=== PATIENT | male | born 1940 | race Caucasian/White ===

== ENCOUNTER 2020-02-23 09:53 | Outpatient (REF) | payer MEDICARE, OTHER, SELFPAY ==
[2020-02-23 10:50] LABS: INTERNATIONAL NORM RATIO 2.2 (0.9-1.1); Prothrombin Time 26.3 SEC (10.8-13.0)
== END 2020-02-23 09:54 | disposition home or self-care (01) ==
LOC: HO.LABR 09:53
PROVIDERS: PCP Internal Medicine; Visit Provider Internal Medicine
DX: I48.91 Unspecified atrial fibrillation (principal)
CPT/HCPCS: 36415; 85610

== ENCOUNTER 2020-05-30 13:18 | Outpatient (REF) | payer MEDICARE, OTHER, SELFPAY ==
[2020-05-30 14:20] LABS: MANUAL DIFF FLAG NO
[2020-05-30 14:23] LABS: Basophils Absolute Auto 0.1 X10*3/uL (0.0-0.2); Basophils Percent Auto 0.5 % (0-2); Eosinophils Absolute Auto 0.1 X10*3/uL (0.0-0.4); Eosinophils Percent Auto 0.5 % (0-4); Hematocrit 38.4 % (42-52); Hemoglobin 12.4 g/dl (14.0-18.0); Imm Gran Abs Auto 0.03 X10*3/uL (0.00-0.03); Imm Gran Pct Auto 0.3 % (0.0-0.4); Lymphocytes Percent Auto 9.9 % (20-40); Mean Corpuscular HGB Conc 32.3 g/dl (31.0-36.0); Mean Corpuscular Hemoglobin 30.8 pg (27.0-33.0); Mean Corpuscular Volume 95.5 fL (80-98); Mean Platelet Volume 9.5 fL (9.4-12.4); Monocytes Percent Auto 9.3 % (2-11); Neutrophils Absolute Auto 8.2 X10*3/uL (2.0-8.3); Neutrophils Percent Auto 79.5 % (45-73); Platelet Count 357 X10*3/uL (160-400); Red Blood Count 4.02 X10*6/uL (4.60-5.80); Red Cell Distribution Width 14.3 % (11.0-16.0); White Blood Count 10.3 X10*3/uL (4.8-10.8)
[2020-05-30 14:47] LABS: Alanine Aminotransferase 15 U/L (0-40); Albumin Level 3.8 g/dL (3.5-5.0); Alkaline Phosphatase 43 U/L (39-117); Anion Gap 10 (12-20); Aspartate Amino Transferase 20 U/L (5-37); Bilirubin Total 0.7 mg/dL (0.0-1.0); Blood Urea Nitrogen 23 mg/dL (9-16); Calcium 8.8 mg/dL (8.4-10.2); Carbon Dioxide 26 mmol/L (22-29); Chloride 105 mmol/L (96-108); Cholesterol 111 mg/dL; Estimated Glomerular Filt Rate 56; Glucose Random 98 mg/dL (60-115); HDL Cholesterol 62 mg/dL; LDL Cholesterol Calculated 38 mg/dl; Potassium 4.2 mmol/L (3.3-5.1); Sodium 137 mmol/L (135-145); Total Protein 6.7 g/dL (6.5-8.0); Triglycerides 58 mg/dL
[2020-05-30 15:07] LABS: Thyroid Stimulating Hormone 0.87 uIU/mL (0.32-4.0)
== END 2020-05-30 13:19 | disposition home or self-care (01) ==
LOC: HO.LAB 13:18
PROVIDERS: Visit Provider Internal Medicine
DX: I10 Essential (primary) hypertension (principal); I48.91 Unspecified atrial fibrillation
CPT/HCPCS: 36415; 80053; 80061; 84443; 85025

== ENCOUNTER → 2020-06-16 10:53 | Outpatient (BNVA) | payer MEDICARE, OTHER, SELFPAY | PROVIDERS: PCP Internal Medicine; Visit Provider Internal Medicine | DX: J44.9 Chronic obstructive pulmonary disease, unspecified (principal); J30.9 Allergic rhinitis, unspecified; F17.200 Nicotine dependence, unspecified, uncomplicated; Z71.6 Tobacco abuse counseling | CPT/HCPCS: 99212 ==

== ENCOUNTER 2020-09-11 12:09 | Inpatient (IN) | payer MEDICARE, OTHER, SELFPAY ==
[2020-09-11] VITALS (11 sets, daily range): BP systolic 86–121; BP diastolic 38–74; PULSE 61–79; RESP 12–20; TEMP 36.4–37.2; O2SAT 93–100
--- NOTE | ~2020-09-11 | FL_ITS ---
EXAMINATION: FL BARIUM SWALLOW CLINICAL INFORMATION: Evaluate for dysphagia. A stricture. COMPARISON: None TECHNIQUE: Barium swallow examination is performed using fluoroscopic evaluation in addition to multiple fluoroscopic spot views. The patient is imaged both upright and prone and using both thick and thin sulfate along with effervescent granules. Fluoroscopy time: 0.4 minutes DAP: 1.078 Gycm2 Images: 21 FINDINGS: Following oral administration of thin and thick barium in upright AP view there is normal propagation of bolus from the oral cavity through the pharynx into the upper esophagus. In the mid esophagus below the aortic arch there is moderate narrowing with irregularity along the right lateral mucosa of the midesophagus likely small stricture or underlying mural lesion. No solid food was attempted at this time. The GE junction is widely patent. FL/FL barium swallow IMPRESSION: Moderate narrowing and irregularity mucosa mid esophagus suspicious for underlying lesion or stricture. Recommend endoscopy for further evaluation.
--- NOTE | ~2020-09-11 | CT_ITS ---
EXAMINATION: CT HEAD WITHOUT CONTRAST CLINICAL INFORMATION: Elevated INR. Injury. COMPARISON: None TECHNIQUE: Contiguous axial imaging was performed from the skull base to vertex without intravenous administration of contrast. This CT examination was performed using dose optimization techniques as appropriate, variously including the following: *Automated exposure control *Adjustment of mA and/or kV according to patient size (this includes techniques or standardized protocols for targeted exams where dose is matched to indication/reason for exam; i.e. extremities or head) *Use of iterative reconstruction technique DLP: 631 mGy-cm FINDINGS: There is no evidence of acute intracranial hemorrhage or territorial infarction. No abnormal mass effect or midline shift is seen. Jha to white matter differentiation is well preserved. No extra-axial fluid collections are identified. The lateral ventricles are symmetrical in size and configuration. Enlarged. There is diffuse periventricular hypodensity in both cerebral hemispheres suggestive of chronic small vessel ischemic changes. The osseous structures and soft tissues are normal. The mastoid air cells and visualized portions of the paranasal sinuses are well aerated. CT/CT head/brain wo con IMPRESSION: There is no acute intracranial process seen. 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
--- NOTE | ~2020-09-11 | CT_ITS ---
EXAMINATION: CT CHEST WITH CONTRAST CLINICAL INFORMATION: Esophageal mass COMPARISON: Previous CTA of the chest April 2018 and chest x-ray barium swallow September 2020 TECHNIQUE: Multidetector volumetric CT imaging of the chest was obtained after the administration of 65 mL of Omnipaque 350 intravenous contrast without immediate adverse reactions. Axial MIP volume rendering provided. Sagittal and coronal reformatted images were obtained. This CT examination was performed using dose optimization techniques as appropriate, variously including the following: *Automated exposure control *Adjustment of mA and/or kV according to patient size (this includes techniques or standardized protocols for targeted exams where dose is matched to indication/reason for exam; i.e. extremities or head) *Use of iterative reconstruction technique DLP: 300 mGy-cm FINDINGS: LUNGS: Exam is limited due to artifact from respiratory motion. There is evidence of emphysema. There is bilateral upper lobe subsegmental atelectasis or scarring that is new or increased from April 2018. There is a new irregularly-shaped parenchymal density in the posterior segment of the right upper lobe measuring approximately 3 x 10 mm for example axial image 127 series 5. There is interval increase in density in the now solid 4 x 6 mm right lower lobe nodule axial image 342 series 5. There is new increased interstitial markings seen in the peripheral or subpleural right middle lobe adjacent to the major fissure. There is subsegmental atelectasis at the lung bases. MEDIASTINUM: There is abnormal wall thickening of the mid thoracic esophagus from the aortic arch to the subcarinal region. This area measures 6 cm in length. There is infiltration of the adjacent fat. There are small adjacent mediastinal lymph nodes. Largest lymph note is a 1.3 x 1.1 cm right paratracheal lymph node axial image 24 series 3. There is an esophageal hernia. The heart does not appear enlarged. There is coronary artery calcification. There is no pericardial effusion. The thoracic aorta is normal in caliber. PLEURA: There are small bilateral pleural effusions.. AXILLA: No lymphadenopathy. UPPER ABDOMEN: There are bilateral renal cysts. There is a stone in the upper pole of the right kidney. There is evidence of severe atherosclerotic disease. OSSEOUS STRUCTURES: There are degenerative changes of the spine. There are old bilateral rib fractures, right greater than left. There are degenerative changes at the shoulder joints. CT/CT chest w con IMPRESSION: Limited exam due to respiratory motion. Abnormal wall thickening of the mid thoracic esophagus, infiltration of the adjacent fat and mediastinal lymph nodes. Interval increase in density in the 5 mm right lower lobe nodule and new bilateral upper lobe scarring or subsegmental atelectasis and abnormal parenchymal density in the right upper lobe compared to April 2018 CTA.
--- NOTE | ~2020-09-11 | XR_ITS ---
EXAMINATION: XR CHEST CLINICAL INFORMATION: Chest pain COMPARISON: Chest 05/08/2018 TECHNIQUE: Frontal view of the chest was obtained. FINDINGS: The lungs are hyperinflated but clear of acute process. Heart size and pulmonary vascularity is normal. There are multiple posterior seventh and eighth rib fractures healing fractures. No acute fractures seen. The soft tissues are normal. XR/XR chest 1V IMPRESSION: Emphysema without acute process. Healing posterior seventh and eighth rib fractures.
--- NOTE | ~2020-09-11 | CT_ITS ---
EXAMINATION: CT ABDOMEN AND PELVIS WITHOUT AND WITH CONTRAST CT topogram only was performed. There is a large amount of oral contrast seen in the colon likely from previous barium swallow 09/13/2020. Additional images were not obtained.
--- NOTE | 2020-09-11 12:23 | ECG_ITS ---
Test Reason : CHEST PAIN Blood Pressure : / mmHG Vent. Rate : 063 BPM Atrial Rate : 063 BPM P-R Int : 148 ms QRS Dur : 134 ms QT Int : 474 ms P-R-T Axes : 059 -62 076 degrees QTc Int : 485 ms Normal sinus rhythm Left axis deviation Right bundle branch block Abnormal ECG When compared with ECG of 08-MAY-2018 14:30, Nonspecific T wave abnormality no longer evident in Inferior leads T wave inversion less evident in Anterolateral leads QT has shortened Referred By: Sheri Cornelius Electronically Signed By:Charles Kauffman
[2020-09-11 13:02] LABS: MANUAL DIFF FLAG NO
[2020-09-11 13:03] LABS: Basophils Percent Auto 0.4 % (0-2); Eosinophils Absolute Auto 0.1 X10*3/uL (0.0-0.4); Hematocrit 25.1 % (42-52); Hemoglobin 7.8 g/dl (14.0-18.0); Imm Gran Abs Auto 0.02 X10*3/uL (0.00-0.03); Imm Gran Pct Auto 0.2 % (0.0-0.4); Lymphocytes Absolute Auto 0.9 X10*3/uL (1.2-4.9); Lymphocytes Percent Auto 10.9 % (20-40); Mean Corpuscular HGB Conc 31.1 g/dl (31.0-36.0); Mean Corpuscular Hemoglobin 30.4 pg (27.0-33.0); Mean Corpuscular Volume 97.7 fL (80-98); Mean Platelet Volume 8.4 fL (9.4-12.4); Monocytes Absolute Auto 0.8 X10*3/uL (0.1-1.2); Monocytes Percent Auto 9.3 % (2-11); Neutrophils Absolute Auto 6.4 X10*3/uL (2.0-8.3); Neutrophils Percent Auto 78.2 % (45-73); Platelet Count 494 X10*3/uL (160-400); Red Blood Count 2.57 X10*6/uL (4.60-5.80); Red Cell Distribution Width 17.4 % (11.0-16.0); White Blood Count 8.1 X10*3/uL (4.8-10.8)
[2020-09-11 13:19] LABS: Prothrombin Time 102.5 SEC (10.8-13.0)
[2020-09-11 13:26] LABS: INTERNATIONAL NORM RATIO 8.4 (0.9-1.1); Partial Thromboplastin Time 74.8 SEC (24.1-38.0)
[2020-09-11] MEDS: ondansetron HCL 4 MG/2 ML VIAL IVPUSH (13:29)
[2020-09-11] MEDS: 0.9 % Sodium Chloride 1,000 ML 999 ML IVCONT ×2 (13:29→15:15)
[2020-09-11 13:33] LABS: Troponin-I High Sensitivity 7.1 ng/L (<3.5-35.0)
--- NOTE | 2020-09-11 13:37 | HE.PHANOTE ---
MED REC COMPLETE. UNABLE TO CONFIRM WHAT DAYS OF THE WEEK HE IS SUPPOSED TO TAKE WARFARIN 4 MG OR WARFARIN 3 MG, RX SAYS 5 TIMES A WEEK FOR 3 MG AND 3 TIMES A WEEK FOR 4 MG. INR IS ELEVATED DOSE MAY NEED TO BE ADJUSTED
[2020-09-11 13:43] LABS: OBS1 NEGATIVE (NEGATIVE)
[2020-09-11 13:44] LABS: OBS Int Ctl Valid YES
--- NOTE | 2020-09-11 13:51 | ED.WEAKNESS ---
HPI - Weakness General Chief complaint: Weakness Stated complaint: diff breathing Time Seen by Provider: 09/11/20 12:23 Source: patient, family and EMS Mode of arrival: EMS History of Present Illness HPI Narrative: 79-year-old male with a past medical history of AFib on Coumadin, CKD, anemia, CAD s/p PCI with stent placement, COPD, GERD, HTN, hypothyroid, HLD, GI bleed, legally blind, deaf, TIA, prostate CA s/p prostatectomy, smoker to the ED complaining of right-sided chest pain, increased weakness, generalized fatigue, and decreased p.o. intake since 2nd Med[employer] COVID-19 vaccine on 07/16/2020. Also reports dry cough x 4-5 days and chronic SOB. Denies fever, chills, LE edema, abdominal pain, nausea, vomiting, diarrhea, melena/black stool, fall/injury or trauma. Denies inability to swallow MD Complaint: lack of energy Related Data Home Medications Medication Instructions Recorded Confirmed albuterol sulfate 90 mcg/actuation 1 inh INHALATION Q4H PRN 06/16/20 09/11/20 aerosol inhaler amlodipine 5 mg tablet 5 mg PO DAILY 06/16/20 09/11/20 cholecalciferol (vitamin D3) 25 25 mcg PO DAILY 06/16/20 09/11/20 mcg (1,000 unit) tablet docusate sodium 100 mg capsule 100 mg PO BEDTIME PRN 06/16/20 09/11/20 dronedarone 400 mg tablet 400 mg PO BID 06/16/20 09/11/20 ferrous sulfate 325 mg (65 mg 325 mg PO DAILY 06/16/20 09/11/20 iron) tablet fluticasone propionate 50 1 spray INTRANASAL DAILY 06/16/20 09/11/20 mcg/actuation nasal spray,suspension folic acid 1 mg tablet 1 mg PO DAILY 06/16/20 09/11/20 levothyroxine 100 mcg tablet 100 mcg PO DAILY@62906/16/20 09/11/20 metoprolol succinate 100 mg 100 mg PO DAILY 06/16/20 09/11/20 tablet,extended release 24 hr omeprazole 20 mg capsule,delayed 20 mg PO DAILY@30 06/16/20 09/11/20 release rosuvastatin 20 mg tablet 20 mg PO BEDTIME 06/16/20 09/11/20 tiotropium bromide 18 mcg capsule 1 cap INHALATION DAILY 06/16/20 09/11/20 with inhalation device warfarin 3 mg tablet 3 mg PO SUTUTHFRSA@1800 06/16/20 09/11/20 warfarin 4 mg tablet 4 mg PO MOWE@1800 06/16/20 09/11/20 albuterol sulfate 2.5 mg INHALATION Q4H PRN 09/11/20 09/11/20 Previous Rx's Medication Instructions Recorded fluticasone furoate 200 1 ea PO DAILY #60 cap 08/13/20 mcg-vilanterol 25 mcg/dose inhalation powder Allergies Allergy/AdvReac Type Severity Reaction Status Date / Time lisinopril [LISINOPRIL] Allergy Severe ANGIOEDEMA Verified 06/16/20 10:54 quinine [Quinine] Allergy Unknown HIVES Verified 06/16/20 10:54 Review of Systems Review of Systems: Constitutional: + Weight loss, No Fever, No Chills, No Night Sweats, + Fatigue, + Malaise ENT/Mouth: No Ear Pain, No sore throat, No Rhinorrhea, No Swallowing Difficulty Eyes: No Eye Pain, No Vision Changes Cardiovascular: + Chest Pain, +Chronic SOB, No Dyspnea on Exertion, No Orthopnea, No Edema Respiratory: + Cough, No Sputum, No Wheezing, + Smoke Exposure, No Dyspnea Gastrointestinal: No Nausea, No Vomiting, No Diarrhea, No Constipation, No Abdominal pain, No Hematochezia, No Melena Genitourinary: No irregular bleeding, No Dysuria, No Hematuria, Musculoskeletal: No joint pain, No Myalgias, No Joint Swelling Skin: No Skin Lesions, No rash Neuro: + Weakness, No Numbness, No Paresthesias, No Loss of Consciousness, + lightheaded, No Headache Yes all other systems are reviewed and are negative [facility] Past Medical History Attestation statement: The following information was validated with the patient. Medical History Allergic rhinitis COPD (chronic obstructive pulmonary disease) Smoker Social History Social History Advance Directives: Yes Advance Directives Information Provided: Yes Advance Directives on File: No Physical Exam Vital Signs: Vital Signs: Last Vital Signs Temp 97.9 F 09/11/20 14:39 Pulse 69 09/11/20 14:39 Resp 12 09/11/20 14:39 BP 109/61 09/11/20 14:39 Pulse Ox 99 09/11/20 14:39 Body Mass Index 8.6 Const: General: cooperative and no acute distress Nutritional Appearance: thin Orientation/consciousness: patient oriented x3 HENMT: Head: Yes normal to inspection Ears: hearing grossly normal bilaterally General nose exam: Normal external nose present Face and sinus: Yes normal facial exam Eyes: General: appearance normal, both eyes and all related structures EOM: EOMs intact bilaterally Neck: Neck: Yes normal visual inspection Resp: Effort & Inspection: normal respiratory effort Auscultation: clear to auscultation bilaterally, no rales, no rhonchi and no wheezes Cardio: Rate: regular rate Heart sounds: S1 normal heart sound present and S2 normal heart sound present GI: Other: dark stool noted on rectal Inspection: Yes normal to inspection Palpation (GI): Soft to palpation, nontender, no guarding and not rigid Skin: Rashes: no rashes Wounds: no wounds Neuro: General: patient oriented x3, moves all extremities and no focal motor deficits Gait exam (Neuro): Normal gait present Extrem: General: Yes normal to inspection Course Course Course Narrative: -No leukocytosis, H&H with dropped from priors to 7.8/25.1 > patient denies bloody/black stools however is legally blind >> on rectal stool dark/black concern for upper GI bleed -INR elevated to 8.4 >> 10mg of IV vitamin K ordered. Patient with TONI with BUN 21 creatinine 1.96 likely from dehydration/anemia -1435--occult stool negative XR chest 1V IMPRESSION: Emphysema without acute process. Healing posterior seventh and eighth rib fractures. >> will obtain head CT to rule out ICH secondary to elevated INR -1537--COVID-19/influenza/RSV negative CT head/brain wo con IMPRESSION: There is no acute intracranial process seen. 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 -1544--patient admitted to hospitalist team for further management MDM - Weakness MDM Narrative Medical decision making narrative: 79-year-old male with a past medical history of AFib on Coumadin, CKD, anemia, CAD s/p PCI with stent placement, COPD, GERD, HTN, hypothyroid, HLD, GI bleed, legally blind, deaf, TIA, prostate CA s/p prostatectomy, smoker to the ED complaining of right-sided chest pain, increased weakness, generalized fatigue, and decreased p.o. intake since 2nd Med[employer] COVID-19 vaccine on 07/16/2020. On exam VSS, underweight, nontoxic appearing, lungs CTA, abdomen soft/nontender. Concern for dehydration vs metabolic abnormalities. Rule out infectious etiology and ACS. Lower concern for PE as patient is anticoagulated. Plan: EKG, labs, UA, CXR, IVF, reassess Medical Records Attestation: I reviewed the patient's medical records. Lab Data Attestation: I reviewed the patient's lab results. Result diagrams: 09/11/20 12:56 09/11/20 12:56 Labs: Lab Results 09/11/20 09/11/20 09/11/20 Range/Units 12:56 12:56 12:56 WBC 8.1 (4.8-10.8) X10*3/uL RBC 2.57 L D (4.60-5.80) X10*6/uL Hgb 7.8 L D (14.0-18.0) g/dl Hct 25.1 L D (42-52) % MCV 97.7 (80-98) fL MCH 30.4 (27.0-33.0) pg MCHC 31.1 (31.0-36.0) g/dl RDW 17.4 H (11.0-16.0) % Plt Count 494 H D (160-400) X10*3/uL MPV 8.4 L (9.4-12.4) fL Immature Gran % (Auto) 0.2 (0.0-0.4) % Neut % (Auto) 78.2 H (45-73) % Lymph % (Auto) 10.9 L (20-40) % Braxton % (Auto) 9.3 (2-11) % Eos % (Auto) 1.0 (0-4) % Baso % (Auto) 0.4 (0-2) % Lymph # (Auto) 0.9 L (1.2-4.9) X10*3/uL Braxton # (Auto) 0.8 (0.1-1.2) X10*3/uL Eos # (Auto) 0.1 (0.0-0.4) X10*3/uL Baso # (Auto) 0.0 (0.0-0.2) X10*3/uL Abs Immat Gran (auto) 0.02 (0.00-0.03) X10*3/uL Absolute Neuts (auto) 6.4 (2.0-8.3) X10*3/uL Absolute Nucleated RBC 0.000 (0.0-0.012) X10*3/uL Nucleated RBC % (auto) 0.0 (0.0-0.2) /100WBC PT (10.8-13.0) SEC INR (0.9-1.1) APTT (24.1-38.0) SEC Sodium 140 (135-145) mmol/L Potassium 3.7 (3.3-5.1) mmol/L Chloride 108 (96-108) mmol/L Carbon Dioxide 24 (22-29) mmol/L Anion Gap 12 (12-20) BUN 21 H (9-16) mg/dL Creatinine 1.96 H (0.5-1.4) mg/dL Estim Creat Clear Calc 10.5 Estimated GFR 33 Random Glucose 96 (60-115) mg/dL Calcium 8.4 (8.4-10.2) mg/dL Magnesium 2.3 (1.6-2.6) mg/dL Total Bilirubin 0.4 (0.0-1.0) mg/dL Direct Bilirubin 0.2 (0.0-0.5) mg/dL AST 32 D (5-37) U/L ALT 37 (0-40) U/L Alkaline Phosphatase 49 (39-117) U/L Troponin I High Sens 7.1 (<3.5-35.0) ng/L Total Protein 5.6 L (6.5-8.0) g/dL Albumin 3.2 L (3.5-5.0) g/dL Lipase 12 (8-78) U/L Stool Occult Blood (NEGATIVE) Coronavirus (PCR) (Negative) Influenza Type A (PCR) (Negative) Influenza Type B (PCR) (Negative) RSV RNA Qual (PCR) (Negative) Blood Type Antibody Screen 09/11/20 09/11/20 09/11/20 Range/Units 12:56 12:56 13:37 WBC (4.8-10.8) X10*3/uL RBC (4.60-5.80) X10*6/uL Hgb (14.0-18.0) g/dl Hct (42-52) % MCV (80-98) fL MCH (27.0-33.0) pg MCHC (31.0-36.0) g/dl RDW (11.0-16.0) % Plt Count (160-400) X10*3/uL MPV (9.4-12.4) fL Immature Gran % (Auto) (0.0-0.4) % Neut % (Auto) (45-73) % Lymph % (Auto) (20-40) % Braxton % (Auto) (2-11) % Eos % (Auto) (0-4) % Baso % (Auto) (0-2) % Lymph # (Auto) (1.2-4.9) X10*3/uL Braxton # (Auto) (0.1-1.2) X10*3/uL Eos # (Auto) (0.0-0.4) X10*3/uL Baso # (Auto) (0.0-0.2) X10*3/uL Abs Immat Gran (auto) (0.00-0.03) X10*3/uL Absolute Neuts (auto) (2.0-8.3) X10*3/uL Absolute Nucleated RBC (0.0-0.012) X10*3/uL Nucleated RBC % (auto) (0.0-0.2) /100WBC PT 102.5 H D (10.8-13.0) SEC INR 8.4 H* D (0.9-1.1) APTT 74.8 H* (24.1-38.0) SEC Sodium (135-145) mmol/L Potassium (3.3-5.1) mmol/L Chloride (96-108) mmol/L Carbon Dioxide (22-29) mmol/L Anion Gap (12-20) BUN (9-16) mg/dL Creatinine (0.5-1.4) mg/dL Estim Creat Clear Calc Estimated GFR Random Glucose (60-115) mg/dL Calcium (8.4-10.2) mg/dL Magnesium (1.6-2.6) mg/dL Total Bilirubin (0.0-1.0) mg/dL Direct Bilirubin (0.0-0.5) mg/dL AST (5-37) U/L ALT (0-40) U/L Alkaline Phosphatase (39-117) U/L Troponin I High Sens (<3.5-35.0) ng/L Total Protein (6.5-8.0) g/dL Albumin (3.5-5.0) g/dL Lipase (8-78) U/L Stool Occult Blood NEGATIVE (NEGATIVE) Coronavirus (PCR) NEGATIVE (Negative) Influenza Type A (PCR) NEGATIVE (Negative) Influenza Type B (PCR) NEGATIVE (Negative) RSV RNA Qual (PCR) NEGATIVE (Negative) Blood Type Antibody Screen 09/11/20 Range/Units 14:36 WBC (4.8-10.8) X10*3/uL RBC (4.60-5.80) X10*6/uL Hgb (14.0-18.0) g/dl Hct (42-52) % MCV (80-98) fL MCH (27.0-33.0) pg MCHC (31.0-36.0) g/dl RDW (11.0-16.0) % Plt Count (160-400) X10*3/uL MPV (9.4-12.4) fL Immature Gran % (Auto) (0.0-0.4) % Neut % (Auto) (45-73) % Lymph % (Auto) (20-40) % Braxton % (Auto) (2-11) % Eos % (Auto) (0-4) % Baso % (Auto) (0-2) % Lymph # (Auto) (1.2-4.9) X10*3/uL Braxton # (Auto) (0.1-1.2) X10*3/uL Eos # (Auto) (0.0-0.4) X10*3/uL Baso # (Auto) (0.0-0.2) X10*3/uL Abs Immat Gran (auto) (0.00-0.03) X10*3/uL Absolute Neuts (auto) (2.0-8.3) X10*3/uL Absolute Nucleated RBC (0.0-0.012) X10*3/uL Nucleated RBC % (auto) (0.0-0.2) /100WBC PT (10.8-13.0) SEC INR (0.9-1.1) APTT (24.1-38.0) SEC Sodium (135-145) mmol/L Potassium (3.3-5.1) mmol/L Chloride (96-108) mmol/L Carbon Dioxide (22-29) mmol/L Anion Gap (12-20) BUN (9-16) mg/dL Creatinine (0.5-1.4) mg/dL Estim Creat Clear Calc Estimated GFR Random Glucose (60-115) mg/dL Calcium (8.4-10.2) mg/dL Magnesium (1.6-2.6) mg/dL Total Bilirubin (0.0-1.0) mg/dL Direct Bilirubin (0.0-0.5) mg/dL AST (5-37) U/L ALT (0-40) U/L Alkaline Phosphatase (39-117) U/L Troponin I High Sens (<3.5-35.0) ng/L Total Protein (6.5-8.0) g/dL Albumin (3.5-5.0) g/dL Lipase (8-78) U/L Stool Occult Blood (NEGATIVE) Coronavirus (PCR) (Negative) Influenza Type A (PCR) (Negative) Influenza Type B (PCR) (Negative) RSV RNA Qual (PCR) (Negative) Blood Type O Positive Antibody Screen NEGATIVE ECG Data Attestation: I personally reviewed and interpreted this ECG as follows: ECG interpretation date: 09/11/20 ECG interpretation time: 12:39 Interpretation: EKG normal sinus rhythm with right bundle-branch block. Rate of 63, nonischemic/no STEMI Discharge Plan Discharge Clinical Impression: Weakness, Anemia, Elevated INR, TONI (acute kidney injury) Patient Disposition: Admitted As Inpatient Prescriptions: No Action fluticasone furoate-vilanterol [Breo Ellipta] 200-25 mcg/dose blister with device 1 ea PO DAILY Qty: 60 RF: 3 albuterol sulfate 2.5 mg /3 mL (0.083 %) Solution For Nebulization 2.5 mg INHALATION Q4H PRN (Reason: Respiratory Distress) RF: 0 Multaq 400 mg tablet 400 mg PO BID RF: 0 Spiriva with HandiHaler 18 mcg capsule, w/inhalation device 1 cap inhalation DAILY RF: 0 rosuvastatin 20 mg tablet 20 mg PO BEDTIME RF: 0 fluticasone propionate 50 mcg/actuation spray,suspension 1 spray intranasal DAILY RF: 0 albuterol sulfate 90 mcg/actuation HFA aerosol inhaler 1 inh inhalation Q4H PRN (Reason: Shortness Of Breath) RF: 0 omeprazole 20 mg capsule,delayed release(DR/EC) 20 mg PO DAILY@0630 RF: 0 levothyroxine 100 mcg tablet 100 mcg PO DAILY@0630 RF: 0 amlodipine 5 mg tablet 5 mg PO DAILY RF: 0 metoprolol succinate 100 mg tablet extended release 24 hr 100 mg PO DAILY RF: 0 warfarin 3 mg tablet 3 mg PO SUTUTHFRSA@1800 RF: 0 warfarin 4 mg tablet 4 mg PO MOWE@1800 RF: 0 folic acid 1 mg tablet 1 mg PO DAILY RF: 0 cholecalciferol (vitamin D3) 25 mcg (1,000 unit) tablet 25 mcg PO DAILY RF: 0 docusate sodium 100 mg capsule 100 mg PO BEDTIME PRN (Reason: Constipation) RF: 0 ferrous sulfate 325 mg (65 mg iron) tablet 325 mg PO DAILY RF: 0
[2020-09-11 13:52] LABS: Alanine Aminotransferase 37 U/L (0-40); Albumin Level 3.2 g/dL (3.5-5.0); Alkaline Phosphatase 49 U/L (39-117); Anion Gap 12 (12-20); Aspartate Amino Transferase 32 U/L (5-37); Bilirubin Direct 0.2 mg/dL (0.0-0.5); Bilirubin Total 0.4 mg/dL (0.0-1.0); Blood Urea Nitrogen 21 mg/dL (9-16); Calcium 8.4 mg/dL (8.4-10.2); Carbon Dioxide 24 mmol/L (22-29); Chloride 108 mmol/L (96-108); Creatinine Clr Calc Pharmacy 10.5; Estimated Glomerular Filt Rate 33; Glucose Random 96 mg/dL (60-115); Lipase 12 U/L (8-78); Magnesium 2.3 mg/dL (1.6-2.6); Potassium 3.7 mmol/L (3.3-5.1); Sodium 140 mmol/L (135-145); Total Protein 5.6 g/dL (6.5-8.0)
[2020-09-11] MEDS: Phytonadione (Vit K1) 10 MG in 0.9 % Sodium Chloride 50 ML 51 MG IV (14:17)
[2020-09-11 14:29] LABS: Influenza A PCR NEGATIVE (Negative); Influenza B PCR NEGATIVE (Negative); Resp Syncy Virus RNA Qual PCR NEGATIVE (Negative); SARS COV2 PCR INHOUSE NEGATIVE (Negative)
[2020-09-11 16:57] LABS: Glucose Urine UA NEG (NEG); Leukocyte Esterase Urine NEG (NEG); Nitrite Urine NEG (NEG); Specific Gravity - Urine 1.025 (1.005-1.025); Urine Blood 2+ (NEG); Urine Ketones NEG (NEG); Urine Protein 2+ MG/DL (NEG-TRACE)
[2020-09-11 17:20] LABS: Appearance Urine CLEAR; Color Urine YELLOW
[2020-09-11 18:09] LABS: WBC Urine 0-2 /HPF (0-4)
[2020-09-11 18:10] LABS: Bacteria Urine 1+ /LPF
--- NOTE | 2020-09-11 22:50 | PM.IMHP ---
History of Present Illness Date of Service: 09/11/20 Chief Complaint: r sided chest pain pt deaf and very hard of hearing This is a 79-year-old male with past medical history of COPD,, CKD, chronic anemia, CAD status post PCI with stent placement, GERD, HTN, hypothyroidism, HLD, history of GI bleed, legally blind, TIA, prostate cancer status post prostatectomy, who presents to the ED with complaints of right-sided chest pain. Patient reports that the chest pain started after he got his 2nd shot of the COVID-19 vaccine. Reports the pain is localized to the right side, nonradiating, 8/10, lasting 5-10 minutes. Patient reports that the pain occurs every time he swallows solids or his medications. Is so severe that stops him from eating further. Patient reports that he has been living on mostly ice [employer], [employer]. Patient also complaining of lower abdominal pain that feels like gas pain, he endorses melena that is chronic, no hematemesis, or hemoptysis. Denies any headache, change in vision. Denies any nausea or vomiting, no palpitations, no shortness of breath. No lower extremity edema. No numbness tingling. Patient does use iron supplements. On arrival to the ED patient hemodynamically stable with a temp of 97.9?, heart rate of 69, respiratory rate of 12, blood pressure 109/61, satting 99% on room air Labs are significant for WBC count of 8.1, hemoglobin of 7.8 that dropped from 12.4 in May, MCV of 97.7, P T of 102?, INR of 8.4, PTT of 74.8, BUN of 21, creatinine of 1.96 with a most recent creatinine of 1.25 from May, albumin of 3.2, UA that is positive for blood and RBC, stool occult blood negative. Chest x-ray shows emphysematous changes with no acute process Healing posterior 7th and 8th rib fractures ( unclear righ or left and unable to view imaging due to system malfunction) Past medical history as below and comfort with Review of Systems Review of Systems: Yes all other systems are reviewed and are negative [facility] Medical History Allergic rhinitis Atrial fibrillation CAD (coronary artery disease) CKD (chronic kidney disease) COPD (chronic obstructive pulmonary disease) GERD (gastroesophageal reflux disease) History of GI bleed HLD (hyperlipidemia) Hypertension Hypothyroidism Prostate cancer Smoker Surgical History (Updated 09/12/20 @ 06:40 by Michael Rea MD) H/O prostatectomy Social History Household Members: Family Household Members Other:: son and daughter in law Housing: House Do you presently have visiting nurse or other home services: No Alcohol intake: unknown Patient Tobacco Use Status: Current everyday Tobacco user Tobacco use type: Cigarette Smoked in Last 30 Days: Yes Patient Interested in Nicotine Replacement: No Second Hand Smoke Exposure: No Use of substances other than those prescribed or required for medical reasons: No Currently Displaying Signs/Symptoms of Drug Intoxication Withdrawal: No Any prior treatment program specific to substance use: No Have you been hit, kicked, punched, or otherwise hurt by someone within the past year? If so, by whom?: No Do you feel safe in your current relationship?: No Current Relationship Is there a partner from a previous relationship who is making you feel unsafe now?: No Are you made to feel afraid or neglected: No Advance Directives: Yes Advance Directives Information Provided: Yes Advance Directives on File: No Advance Directives Date on File: 09/12/20 Do you have thoughts of harming others: None Do you have a plan to hurt others: No Plan Recently lost weight without trying: No Eating poorly because of decreased appetite: Yes Nutrition Risks: Difficulty swallowing Poor oral hygiene: Yes Meds Allergies Allergy/AdvReac Type Severity Reaction Status Date / Time lisinopril [LISINOPRIL] Allergy Severe ANGIOEDEMA Verified 06/16/20 10:54 quinine [Quinine] Allergy Unknown HIVES Verified 06/16/20 10:54 Active Medications: Current Medications Generic Name Dose Route Start Last Admin Trade Name Freq PRN Reason Stop Dose Admin Pharmacy Consult 1 each 09/11/20 12:23 Consult Rx Perform Med Rec MISCELLANE ONCE PRN Consult order Home Medications Medication Instructions Recorded Confirmed Last Taken Type albuterol sulfate 90 mcg/actuation 1 inh INHALATION Q4H PRN 06/16/20 09/11/20 Unknown History aerosol inhaler amlodipine 5 mg tablet 5 mg PO DAILY 06/16/20 09/11/20 09/11/20 History cholecalciferol (vitamin D3) 25 25 mcg PO DAILY 06/16/20 09/11/20 09/11/20 History mcg (1,000 unit) tablet docusate sodium 100 mg capsule 100 mg PO BEDTIME PRN 06/16/20 09/11/20 Unknown History dronedarone 400 mg tablet 400 mg PO BID 06/16/20 09/11/20 09/11/20 History ferrous sulfate 325 mg (65 mg 325 mg PO DAILY 06/16/20 09/11/20 Unknown History iron) tablet fluticasone propionate 50 1 spray INTRANASAL DAILY 06/16/20 09/11/20 Unknown History mcg/actuation nasal spray,suspension folic acid 1 mg tablet 1 mg PO DAILY 06/16/20 09/11/20 09/11/20 History levothyroxine 100 mcg tablet 100 mcg PO DAILY@0630 06/16/20 09/11/20 Unknown History metoprolol succinate 100 mg 100 mg PO DAILY 06/16/20 09/11/20 09/11/20 History tablet,extended release 24 hr omeprazole 20 mg capsule,delayed 20 mg PO DAILY@0630 06/16/20 09/11/20 09/11/20 History release rosuvastatin 20 mg tablet 20 mg PO BEDTIME 06/16/20 09/11/20 09/10/20 History tiotropium bromide 18 mcg capsule 1 cap INHALATION DAILY 06/16/20 09/11/20 09/11/20 History with inhalation device warfarin 3 mg tablet 3 mg PO SUTUTHFRSA@1800 06/16/20 09/11/20 Unknown History warfarin 4 mg tablet 4 mg PO MOWE@1800 06/16/20 09/11/20 Unknown History albuterol sulfate 2.5 mg INHALATION Q4H PRN 09/11/20 09/11/20 Unknown History Physical Exam Vital Signs and Narrative: Vital Signs: Last Vital Signs Temp 99.0 F 09/11/20 22:00 Pulse 79 09/11/20 22:00 Resp 20 09/11/20 22:00 BP 121/46 L 09/11/20 22:00 Pulse Ox 95 09/11/20 22:00 Body Mass Index 8.6 Const: General: cooperative and no acute distress Orientation/consciousness: patient oriented x3 Eyes: General: appearance normal, both eyes and all related structures Resp: Effort & Inspection: normal respiratory effort and able to speak in complete sentences Cardio: Rate: regular rate Rhythm: regular rhythm GI: Palpation (GI): Soft to palpation Auscultation: normal bowel sounds Skin: General skin exam: no rashes or lesions noted Neuro: General: patient oriented x3 Cognition (Neuro): normal cognition Extrem: General: Yes normal to inspection and Yes no pedal edema Results Labs CBC and Chem 7: 09/11/20 12:56 09/11/20 12:56 Labs: Laboratory Results - last 24 hr 09/11/20 09/11/20 09/11/20 12:56 12:56 12:56 MCV 97.7 MCH 30.4 MCHC 31.1 RDW 17.4 H Plt Count 494 H D MPV 8.4 L Immature Gran % (Auto) 0.2 Neut % (Auto) 78.2 H Lymph % (Auto) 10.9 L Bryan % (Auto) 9.3 Eos % (Auto) 1.0 Baso % (Auto) 0.4 Lymph # (Auto) 0.9 L Bryan # (Auto) 0.8 Eos # (Auto) 0.1 Baso # (Auto) 0.0 Abs Immat Gran (auto) 0.02 Absolute Neuts (auto) 6.4 Absolute Nucleated RBC 0.000 Nucleated RBC % (auto) 0.0 PT INR APTT Anion Gap 12 Estim Creat Clear Calc 10.5 Estimated GFR 33 Random Glucose 96 Calcium 8.4 Magnesium 2.3 Total Bilirubin 0.4 Direct Bilirubin 0.2 AST 32 D ALT 37 Alkaline Phosphatase 49 Troponin I High Sens 7.1 Total Protein 5.6 L Albumin 3.2 L Lipase 12 Urine Color Urine Appearance Urine pH Ur Specific [place] Urine Protein Urine Glucose (UA) Urine Ketones Urine Blood Urine Nitrite Ur Leukocyte Esterase Urine RBC Urine WBC Ur Squamous Epith Cells Urine Bacteria Granular Casts Stool Occult Blood Coronavirus (PCR) Influenza Type A (PCR) Influenza Type B (PCR) RSV RNA Qual (PCR) Blood Type Antibody Screen 09/11/20 09/11/20 09/11/20 12:56 12:56 13:37 MCV MCH MCHC RDW Plt Count MPV Immature Gran % (Auto) Neut % (Auto) Lymph % (Auto) Bryan % (Auto) Eos % (Auto) Baso % (Auto) Lymph # (Auto) Bryan # (Auto) Eos # (Auto) Baso # (Auto) Abs Immat Gran (auto) Absolute Neuts (auto) Absolute Nucleated RBC Nucleated RBC % (auto) PT 102.5 H D INR 8.4 H* D APTT 74.8 H* Anion Gap Estim Creat Clear Calc Estimated GFR Random Glucose Calcium Magnesium Total Bilirubin Direct Bilirubin AST ALT Alkaline Phosphatase Troponin I High Sens Total Protein Albumin Lipase Urine Color Urine Appearance Urine pH Ur Specific [place] Urine Protein Urine Glucose (UA) Urine Ketones Urine Blood Urine Nitrite Ur Leukocyte Esterase Urine RBC Urine WBC Ur Squamous Epith Cells Urine Bacteria Granular Casts Stool Occult Blood NEGATIVE Coronavirus (PCR) NEGATIVE Influenza Type A (PCR) NEGATIVE Influenza Type B (PCR) NEGATIVE RSV RNA Qual (PCR) NEGATIVE Blood Type Antibody Screen 09/11/20 09/11/20 09/11/20 14:36 16:21 16:28 MCV MCH MCHC RDW Plt Count MPV Immature Gran % (Auto) Neut % (Auto) Lymph % (Auto) Bryan % (Auto) Eos % (Auto) Baso % (Auto) Lymph # (Auto) Bryan # (Auto) Eos # (Auto) Baso # (Auto) Abs Immat Gran (auto) Absolute Neuts (auto) Absolute Nucleated RBC Nucleated RBC % (auto) PT INR APTT Anion Gap Estim Creat Clear Calc Estimated GFR Random Glucose Calcium Magnesium Total Bilirubin Direct Bilirubin AST ALT Alkaline Phosphatase Troponin I High Sens 9.0 Total Protein Albumin Lipase Urine Color YELLOW Urine Appearance CLEAR Urine pH 6.0 Ur Specific [place] 1.025 Urine Protein 2+ H Urine Glucose (UA) NEG Urine Ketones NEG Urine Blood 2+ H Urine Nitrite NEG Ur Leukocyte Esterase NEG Urine RBC 15-29 H Urine WBC 0-2 Ur Squamous Epith Cells NONE Urine Bacteria 1+ Granular Casts 5-9 Stool Occult Blood Coronavirus (PCR) Influenza Type A (PCR) Influenza Type B (PCR) RSV RNA Qual (PCR) Blood Type O Positive Antibody Screen NEGATIVE Imaging Radiologist's Impressions: Impressions Chest X-Ray 09/11/20 12:23 IMPRESSION: Emphysema without acute process. Healing posterior seventh and eighth rib fractures. Head CT 09/11/20 13:40 IMPRESSION: There is no acute intracranial process seen. 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 Assessment and Plan (1) Atypical chest pain: Status: Acute (2) Normocytic anemia: Status: Acute (3) Elevated INR: Status: Acute (4) Rib fracture: Status: Acute (5) Hematuria: Status: Acute (6) Dysphagia: Status: Acute 79-year-old male with an extensive past medical history as mentioned above presents to the hospital with right-sided chest pain # atypical chest pain - most likely secondary to rib fractures - unclear when he sustained these rib fractures but they are healing per imaging - reports that occurs when he is swallowing his pills and or solid - troponin negative - EKG shows normal sinus rhythm with chronic T-wave inversion that were present previously - at this time will monitor, supportive measures with Tylenol for pain # normocytic anemia - secondary to GI bleed versus hematuria - patient reports black stools although guaiac negative and is on iron supplements - has RBC as well as blood in urine - normal B12, and folic levels - pending ferritin - will consult GI as well as Urology - hemoglobin transfusion threshold of less than 7 # elevated INR - on Coumadin for AFib - will hold Coumadin - received vitamin K -PT INR daily # dysphagia - patient reports that he has pain in his chest every time his jack solid - most likely secondary to rib fracture but will consult speech eval for evaluation of his swallowing # hematuria - consult urology # AFib - hold Coumadin - continue metoprolol # hypothyroidism - continue levothyroxine # COPD - denies any dyspnea, no excessive sputum production - continue home inhalers - monitor for exacerbation DVT prophylaxis: Coumadin CPR status: DNR?DNI
[2020-09-11 23:32] LABS: Ferritin 56 ng/mL (20-250)
[2020-09-12] VITALS (16 sets, daily range): BP systolic 95–127; BP diastolic 49–62; PULSE 62–90; RESP 14–20; TEMP 36.6–37.4; O2SAT 91–96
[2020-09-12 00:08] LABS: Folate > 20.0 ng/mL (> or = 4.0); Vitamin B12 1143 pg/mL (200-900)
[2020-09-12] MEDS: Acetaminophen 325 MG TABLET 650 MG PO ×2 (02:16→12:09)
[2020-09-12] MEDS: 0.9 % Sodium Chloride Flush 3 ML SYRINGE IVFLUSH ×4 (02:17→20:44)
[2020-09-12] MEDS: Levothyroxine Sodium 100 MCG TABLET PO (06:08)
[2020-09-12] MEDS: Omeprazole 20 MG CAPSULE.DR PO (06:08)
[2020-09-12 06:39] LABS: MANUAL DIFF FLAG NO
[2020-09-12 07:15] LABS: Basophils Percent Auto 0.3 % (0-2); Eosinophils Absolute Auto 0.1 X10*3/uL (0.0-0.4); Eosinophils Percent Auto 1.3 % (0-4); Hematocrit 23.1 % (42-52); Hemoglobin 7.1 g/dl (14.0-18.0); Imm Gran Abs Auto 0.01 X10*3/uL (0.00-0.03); Imm Gran Pct Auto 0.1 % (0.0-0.4); Lymphocytes Absolute Auto 0.8 X10*3/uL (1.2-4.9); Lymphocytes Percent Auto 11.7 % (20-40); Mean Corpuscular HGB Conc 30.7 g/dl (31.0-36.0); Mean Corpuscular Hemoglobin 30.7 pg (27.0-33.0); Mean Platelet Volume 8.8 fL (9.4-12.4); Monocytes Absolute Auto 0.7 X10*3/uL (0.1-1.2); Monocytes Percent Auto 9.3 % (2-11); Neutrophils Absolute Auto 5.5 X10*3/uL (2.0-8.3); Neutrophils Percent Auto 77.3 % (45-73); Platelet Count 399 X10*3/uL (160-400); Red Blood Count 2.31 X10*6/uL (4.60-5.80); Red Cell Distribution Width 17.5 % (11.0-16.0); White Blood Count 7.1 X10*3/uL (4.8-10.8)
[2020-09-12 07:28] LABS: Anion Gap 10 (12-20); Blood Urea Nitrogen 15 mg/dL (9-16); Calcium 7.5 mg/dL (8.4-10.2); Carbon Dioxide 21 mmol/L (22-29); Chloride 113 mmol/L (96-108); Estimated Glomerular Filt Rate 46; Glucose Random 115 mg/dL (60-115); Potassium 3.6 mmol/L (3.3-5.1); Sodium 140 mmol/L (135-145)
[2020-09-12] MEDS: Fluticasone Propionate Nasal 16 GM SPRAY 1 SPRAY NOSTRIL-B (08:02)
[2020-09-12] MEDS: Dronedarone HCl 400 MG TABLET PO ×2 (08:02→20:44)
[2020-09-12] MEDS: Metoprolol Succinate ER 100 MG TAB.ER.24H PO (08:02)
[2020-09-12] MEDS: Folic Acid 1 MG TABLET PO (08:03)
[2020-09-12] MEDS: oxyCODONE HCl Immed Release 5 MG TABLET 2.5 MG PO ×3 (08:03→20:57)
[2020-09-12] MEDS: Cholecalciferol (Vitamin D3) 25 MCG TABLET PO (08:03)
[2020-09-12 08:07] LABS: INTERNATIONAL NORM RATIO 1.2 (0.9-1.1); Prothrombin Time 14.3 SEC (10.8-13.0)
[2020-09-12] MEDS: Fluticasone/Vilanterol 200/25 BLST.W.DEV 1 PUFF INHALE (08:33)
--- NOTE | 2020-09-12 10:54 | MHC.SL.SWA ---
Speech Pathologist Impression: Oral Phase Dysphagia Risk of Aspiration Due to: Poor PO Intake Dysphasia Diet Status: Downgrade Liquid Consistency and Strategies for Safe Swallow: Liquid Intake Recommendation: Thin Liquid Intake Strategies: Unrestricted Solid Food Consistency: Dietary Recommendations: Grnd/Mech Altered (NDD2) Additional Modifications to Solid Foods: Patient prefers softer solids due to pain. Oral Medication Intake: Crushed with Puree Compensatory Strategies and Precautions to be Taken for Safe Swallow: Sitting Upright (90 deg) Small Bites and Sips Alternate Liquids/Solids Rate of Ingestion Change Supervision While Eating and Drinking for Safe Swallow: None Needed Recommendation for Speech: Inpatient Speech Therapy Comment: CLOTH HAND to follow up 1x time to ensure tolerance. Orthotic/Prosthetic Practitioner Clinican/Clinical Fellow: No Supervisory Statement: I have reviewed and agree with the student/clinical fellow's documentation: N/A Speech Language Pathologist: [place] Barrett M.A., CCC-CLOTH HAND
--- NOTE | 2020-09-12 12:33 | PM.GICN ---
History of Present Illness Data of Consult Service Date: 09/12/20 Requesting physician: Ashutosh Shaw Primary Care Provider: Sima Oconnor M.D. HPI Reason for consult: Dysphagia, post prandial chest pain, anemia 79 YM with COPD,, CKD, chronic anemia, CAD status post PCI with stent placement, GERD, HTN, hypothyroidism, HLD, history of GI bleed, legally blind, TIA, prostate cancer status post prostatectomy presented to [facility] ED on 09/11/20 with fatigue. SOB and post prandial chest pain: HPI Narrative: 79-year-old male with a past medical history of AFib on Coumadin, CKD, anemia, CAD s/p PCI with stent placement, COPD, GERD, HTN, hypothyroid, HLD, GI bleed, legally blind, deaf, TIA, prostate CA s/p prostatectomy, smoker to the ED complaining of right-sided chest pain, increased weakness, generalized fatigue, and decreased p.o. intake since 2nd Mederna COVID-19 vaccine on 07/16/2020. Also reports dry cough x 4-5 days and chronic SOB. Denies fever, chills, LE edema, abdominal pain, nausea, vomiting, diarrhea, melena/black stool, fall/injury or trauma. Denies inability to swallow Pt has a past hx of severe anemia without clear etiology for GI blood loss noted on recent EGD and Colonoscopy. Capsule Study showed ulcers in the TI unclear if these are source of blood loss. IBD serologies were negative. On arrival to the ED patient hemodynamically stable. Labs are significant for WBC count of 8.1, hemoglobin of 7.8 (decreased from 12.4 in May), INR of 8.4, PTT of 74.8, albumin of 3.2, stool occult blood negative. Patient is very hard of hearing and difficult to obtain detailed hx from the patient. He complains of pressure/pain in the chest - right side of mid sternum after eating. Patient reports that the chest pain started after he got his 2nd shot of the COVID-19 vaccine. Reports the pain is localized to the right side, nonradiating, 8/10, lasting 5-10 minutes. Patient reports that the pain occurs every time he swallows solids or his medications. Is so severe that stops him from eating further. Patient reports that he has been living on mostly ice cream, Jell-[employer]. Patient also complaining of lower abdominal pain that feels like gas pain, he endorses melena that is chronic, no hematemesis, or hemoptysis. Patient does use iron supplements. denies symptoms of nausea, vomiting, change in appetite or weight. Denies recent change in bowel habits, constipation, diarrhea, black stools or rectal bleeding. Patient denies major cardiac or pulmonary problems, loud snoring or sleep apnea ENDOSCOPIC STUDIES: 08/2017 EGD and colonoscopy was performed by Dr. Quigley for microcytic anemia and heme-positive stools. EGD showed a 5 cm hiatal hernia. Multiple colon polyps (< 10 mm)were removed during colonoscopy. Moderate diverticulosis and internal hemorrhoids were detected October 2017 capsule endoscopy showed several small ulcerations in the distal ileum with evidence of old blood mixed with bile in the lumen. No active bleeding was seen at the time of examination. PAST GI HISTORY BY REVIEW OF MEDICAL RECORDS: 02/2018 PATIENT WAS LAST SEEN IN THE GI CLINIC: 77 YM with CAD, past TIA's x 2, A Fib, Htn, COPD, hyperlipidemia with recurrent anemia due to GI blood loss while on Eliquis. No clear etiology for GI blood loss noted on recent EGD and Colonoscopy. Capsule Study showed ulcers in the TI unclear if these are source of blood loss. IBD serologies were negative. Pt has been off Eliquis for the past 12 weeks and recent stool hemoccults were negative. Labs on 01/13/18 showed Hct of 37.8 (increased from 36.4 in 11/26), Ferritin was 19. Vitamin B 12 was 271 (in the low normal range) PAST GI HISTORY BY REVIEW OF MEDICAL RECORDS: Pt was last seen in GI on 01/13/18: Assessments 1. Iron deficiency anemia due to chronic blood loss - D50.0 (Primary) 2. Decreased appetite - R63.0 3. Weight loss - R63.4 Treatment 1. Iron deficiency anemia due to chronic blood loss Start Ferrous Sulfate Tablet, 325 (65 Fe) MG, 1 tablet, Orally, once a day, 30 day(s), 30 Tablet, Refills 3 LAB: IRON + IBC (FE) LAB: FERRITIN LAB: CBC w DIFF IMAGING: EKG Notes: 77 YM with CAD, past TIA's x 2, A Fib, Htn, COPD, hyperlipidemia with recurrent anemia due to GI blood loss while on Eliquis. No clear etiology for GI blood loss noted on recent EGD and Colonoscopy. Capsule Study showed ulcers in the TI unclear if these are source of blood loss. IBD serologies were negative. Pt has been off Eliquis for the past 8-9 weeks and recent stool hemoccults were negative. Plan is to check repeat CBC and iron studies and an EKG. Alec was advised to start ferrous sulfate once daily. I will contact his Hiv Cts Specialist at [facility] regarding possibility of alternative anticoagulant versus baby aspirin. ADDENDUM: Discussed with pt's data review specialist - Dr Cole's partner (since Dr Cole was on vacation) at [phone] regarding the Eliquis. Due to past history of TIA pt has 6-7% risk of stroke per year. other option will be warfarin with low therapeutic INR or Watchman's procedure. 2. Weight loss Notes: Weight loss associated with decreased appetite - advised to increase his PO intake and take Ensure 1-2 times daily to prevent further weight loss. Follow Up 2-3 Weeks (Reason: FU of anemia). Assessments 1. Iron deficiency anemia due to chronic blood loss - D50.0 (Primary) 2. Low vitamin B12 level - E53.8 Treatment 1. Iron deficiency anemia due to chronic blood loss LAB: FERRITIN LAB: CBC w/o DIFF Notes: 77 YM with CAD, past TIA's x 2, A Fib, Htn, COPD, hyperlipidemia with recurrent anemia due to GI blood loss while on Eliquis. No clear etiology for GI blood loss noted on recent EGD and Colonoscopy. Capsule Study showed ulcers in the TI unclear if these are source of blood loss. IBD serologies were negative. Pt has been off Eliquis for the past 12 weeks and recent stool hemoccults were negative. Labs on 01/13/18 showed Hct of 37.8 (increased from 36.4 in 11/26), Ferritin was 19. Vitamin B 12 was 271 (in the low normal range) Discussed with pt's data review specialist - Dr Cole's partner (since Dr Cole was on vacation) at [phone] regarding the Eliquis. Due to past history of TIA pt has 6-7% risk of stroke per year. other option will be warfarin with low therapeutic INR or Watchman's procedure. Reviewed above recommendations with Alec and his son. Alec wants to remain off anticoagulation despite risk of a stroke due to concern for recurrent GI bleed. Option of starting warfarin and maintaining INR in low therapeutic range with close monitoring of INR and CBC was discussed. He was advised to continue taking PO iron and schedule a FU appointment with Dr Cole to review his options. 2. Low vitamin B12 level Start Vitamin B 12 Lozenge, 100 MCG, as directed, Orally, daily, 90 days, 90 day supply, Refills 3 Notes: Vitamin B 12 level close to lower limit of normal. He was advised to start Vitamin B 12 PO once daily. Review of Systems Constitutional: Constitutional: Denies fever(s), Denies headache(s) and Denies weight loss Eyes: Eyes: Denies eye discharge and Denies irritation ENT: Denies Normal hearing present, Reports dysphagia, Denies dizziness and Denies headache(s) Cardiovascular: Cardiovascular: Reports chest pain, Denies leg edema and Denies dyspnea on exertion Respiratory: Respiratory: Denies cough, Denies dyspnea on exertion and Denies wheezing Gastrointestinal: Gastrointestinal: Denies abdominal pain, Denies change in bowel habits, Reports dysphagia and Denies heartburn Genitourinary: Genitourinary: Denies dysuria Musculoskeletal: Musculoskeletal: Denies back pain and Denies arthralgias Integumentary/Breasts: Skin/Breast: Denies pruritus, Denies rash and Denies jaundice Neurologic: Denies Normal hearing present, Denies Abnormal speech present, Denies dizziness, Denies headache(s) and Denies seizure-like activity Psychiatric: Psychiatric: Denies anxiety, Denies depression and Denies panic attacks Endocrine: Endocrine: Denies cold intolerance, Denies flushing and Denies heat intolerance Hematologic/Lymphatic: Hematologic/Lymphatic: Denies easy bleeding and Denies easy bruising Allergic/Immunologic: Allergic/Immunologic: Denies wheezing PMFSH Past Medical History Medical History Allergic rhinitis Atrial fibrillation CAD (coronary artery disease) CKD (chronic kidney disease) COPD (chronic obstructive pulmonary disease) GERD (gastroesophageal reflux disease) History of GI bleed HLD (hyperlipidemia) Hypertension Hypothyroidism Prostate cancer Smoker Surgical History Surgical History (Updated 09/12/20 @ 06:40 by Michael Rea MD) H/O prostatectomy Social History Social History Household Members: Family Household Members Other:: son and daughter in law Housing: House Do you presently have visiting nurse or other home services: No Alcohol intake: unknown Patient Tobacco Use Status: Current everyday Tobacco user Tobacco use type: Cigarette Smoked in Last 30 Days: Yes Patient Interested in Nicotine Replacement: No Second Hand Smoke Exposure: No Use of substances other than those prescribed or required for medical reasons: No Currently Displaying Signs/Symptoms of Drug Intoxication Withdrawal: No Any prior treatment program specific to substance use: No Have you been hit, kicked, punched, or otherwise hurt by someone within the past year? If so, by whom?: No Do you feel safe in your current relationship?: No Current Relationship Is there a partner from a previous relationship who is making you feel unsafe now?: No Are you made to feel afraid or neglected: No Advance Directives: Yes Advance Directives Information Provided: Yes Advance Directives on File: No Advance Directives Date on File: 09/12/20 Do you have thoughts of harming others: None Do you have a plan to hurt others: No Plan Recently lost weight without trying: No Eating poorly because of decreased appetite: Yes Nutrition Risks: Difficulty swallowing Poor oral hygiene: Yes service: Yes Current occupational status: disabled Meds Allergies Allergy/AdvReac Type Severity Reaction Status Date / Time lisinopril [LISINOPRIL] Allergy Severe ANGIOEDEMA Verified 06/16/20 10:54 quinine [Quinine] Allergy Unknown HIVES Verified 06/16/20 10:54 Active Medications: Current Medications Generic Name Dose Route Start Last Admin Trade Name Freq PRN Reason Stop Dose Admin Acetaminophen 650 mg 09/12/20 01:21 09/12/20 12:09 Acetaminophen 325 Mg Tablet PO 650 mg Q6H PRN Administration Pain, Mild (Pain Scale 1-3) Albuterol Sulfate 2.5 mg 09/12/20 01:21 Albuterol Sulfate (0.083%) 2.5 Mg/3 Ml Vial.Neb INHALE Q4H PRN Respiratory Distress Albuterol Sulfate 1 puff 09/12/20 01:21 Albuterol Sulfate 90 Mcg 8 Gm Inhaler INHALE Q4H PRN Shortness Of Breath Atorvastatin Calcium 80 mg 09/12/20 21:00 Atorvastatin Calcium 80 Mg Tablet PO BEDTIME RAINE Docusate Sodium 100 mg 09/12/20 01:21 Docusate Sodium 100 Mg Capsule PO BEDTIME PRN Constipation Dronedarone 400 mg 09/12/20 09:00 09/12/20 08:02 Dronedarone Hcl 400 Mg Tablet PO 400 mg BID RAINE Administration Fluticasone Propionate 1 spray 09/12/20 09:00 09/12/20 08:02 Fluticasone Propionate Nasal 16 Gm [place] NOSTRIL-B 1 spray DAILY RAINE Administration Fluticasone/Vilanterol 1 puff 09/12/20 08:00 09/12/20 08:33 Fluticasone/Vilanterol 200/25 Blst.W.Dev INHALE 1 puff RDAILY [facility] Administration Folic Acid 1 mg 09/12/20 09:00 09/12/20 08:03 Folic Acid 1 Mg Tablet PO 1 mg DAILY [facility] Administration Levothyroxine Sodium 100 mcg 09/12/20 06:30 09/12/20 06:08 Levothyroxine Sodium 100 Mcg Tablet PO 100 mcg DAILY@0630 [facility] Administration Metoprolol Succinate 100 mg 09/12/20 09:00 09/12/20 08:02 Metoprolol Succinate Er 100 Mg Tab.Er.24h PO 100 mg DAILY [facility] Administration Protocol Omeprazole 20 mg 09/12/20 06:30 09/12/20 06:08 Omeprazole 20 Mg Capsule.Dr PO 20 mg DAILY@0630 [facility] Administration Ondansetron HCl 4 mg 09/12/20 01:21 Ondansetron Hcl 4 Mg/2 Ml Vial IVPUSH Q8H PRN Nausea and Vomiting Oxycodone HCl 2.5 mg 09/12/20 07:51 09/12/20 12:09 Oxycodone Hcl Immed Release 5 Mg Tablet PO 2.5 mg Q4H PRN Administration Pain, Severe (Pain Scale 7-10) Pharmacy Consult 1 each 09/11/20 12:23 Consult Rx Perform Med Rec MISCELLANE ONCE PRN Consult order Sodium Chloride 3 ml 09/12/20 01:21 09/12/20 08:02 0.9 % Sodium Chloride Flush 3 Ml Syringe IVFLUSH 3 ml QSHIFT [facility] Administration Tiotropium [place] 1 puff 09/12/20 08:00 09/12/20 08:33 Tiotropium [place] 18 Mcg Cap.W.Dev INHALE 1 puff RDAILY [facility] Administration Vitamin D 25 mcg 09/12/20 09:00 06/04/21 08:03 Cholecalciferol (Vitamin D3) 25 Mcg Tablet PO 25 mcg DAILY RAINE Administration Home Medications Medication Instructions Recorded Confirmed Last Taken Type albuterol sulfate 90 mcg/actuation 1 inh INHALATION Q4H PRN 06/16/20 09/11/20 Unknown History aerosol inhaler amlodipine 5 mg tablet 5 mg PO DAILY 06/16/20 09/11/20 09/11/20 History cholecalciferol (vitamin D3) 25 25 mcg PO DAILY 06/16/20 09/11/20 09/11/20 History mcg (1,000 unit) tablet docusate sodium 100 mg capsule 100 mg PO BEDTIME PRN 06/16/20 09/11/20 Unknown History dronedarone 400 mg tablet 400 mg PO BID 06/16/20 09/11/20 09/11/20 History ferrous sulfate 325 mg (65 mg 325 mg PO DAILY 06/16/20 09/11/20 Unknown History iron) tablet fluticasone propionate 50 1 spray INTRANASAL DAILY 06/16/20 09/11/20 Unknown History mcg/actuation nasal spray,suspension folic acid 1 mg tablet 1 mg PO DAILY 06/16/20 09/11/20 09/11/20 History levothyroxine 100 mcg tablet 100 mcg PO DAILY@0606/16/20 09/11/20 Unknown History metoprolol succinate 100 mg 100 mg PO DAILY 06/16/20 09/11/20 09/11/20 History tablet,extended release 24 hr omeprazole 20 mg capsule,delayed 20 mg PO DAILY@0630 06/16/20 09/11/20 09/11/20 History release rosuvastatin 20 mg tablet 20 mg PO BEDTIME 06/16/20 09/11/20 09/10/20 History tiotropium bromide 18 mcg capsule 1 cap INHALATION DAILY 06/16/20 09/11/20 09/11/20 History with inhalation device warfarin 3 mg tablet 3 mg PO SUTUTHFRSA@1800 06/16/20 09/11/20 Unknown History warfarin 4 mg tablet 4 mg PO MOWE@1800 06/16/20 09/11/20 Unknown History albuterol sulfate 2.5 mg INHALATION Q4H PRN 09/11/20 09/11/20 Unknown History Physical Exam Vital Signs: Vital Signs: Last Vital Signs Temp 98.0 F 09/12/20 12:07 Pulse 66 09/12/20 12:07 Resp 18 09/12/20 12:07 BP 110/60 09/12/20 12:07 Pulse Ox 93 09/12/20 11:24 Body Mass Index 8.6 Const: General: no acute distress and ill appearing Nutritional Appearance: average body habitus Orientation/consciousness: patient oriented x3 Limitations: no limitations HENMT: Head: Yes normal to inspection Ears: hearing grossly normal bilaterally Mouth: Normal oral and palatal mucosa present Eyes: Sclerae: sclerae normal Pupils: Equal, round and reactive pupils present Neck: Neck: Yes normal visual inspection Chest: Chest palpation & inspection: normal inspection of the chest Resp: Effort & Inspection: normal respiratory effort Auscultation: clear to auscultation bilaterally Cardio: Palpation: normal PMI Rate: regular rate Rhythm: regular rhythm Heart sounds: S1 normal heart sound present, S2 normal heart sound present and no murmurs GI: Palpation (GI): Soft to palpation, nontender and No hepatosplenomegaly present Auscultation: normal bowel sounds Rectal Exam - Male: Yes deferred Skin: General skin exam: no rashes or lesions noted Neuro: General: patient oriented x3, gait normal and moves all extremities Cranial nerves: Yes Equal, round and reactive pupils present and No Normal hearing present Speech: No Abnormal speech present Psych: Appearance: grossly normal Mental Status: mental status grossly normal Results Labs CBC & Chem 7: 09/12/20 05:45 09/12/20 05:45 Labs: Short CBC 09/11/20 09/12/20 Range/Units 12:56 05:45 WBC 8.1 7.1 (4.8-10.8) X10*3/uL Hgb 7.8 L D 7.1 L (14.0-18.0) g/dl Hct 25.1 L D 23.1 L (42-52) % Plt Count 494 H D 399 (160-400) X10*3/uL BMP 09/11/20 09/12/20 12:56 05:45 Sodium 140 140 Potassium 3.7 3.6 Chloride 108 113 H Carbon Dioxide 24 21 L BUN 21 H 15 Creatinine 1.96 H 1.48 H Calcium 8.4 7.5 L D Liver Function 09/11/20 Range/Units 12:56 Total Bilirubin 0.4 (0.0-1.0) mg/dL Direct Bilirubin 0.2 (0.0-0.5) mg/dL AST 32 D (5-37) U/L ALT 37 (0-40) U/L Alkaline Phosphatase 49 (39-117) U/L Albumin 3.2 L (3.5-5.0) g/dL Urine 09/11/20 Range/Units 16:21 Urine Color YELLOW Urine Appearance CLEAR Urine pH 6.0 (5.0-8.0) Ur Specific [place] 1.025 (1.005-1.025) Urine Protein 2+ H (NEG-TRACE) MG/DL Urine Glucose (UA) NEG (NEG) MG/DL Assessment and Plan (1) Dysphagia: Status: Acute (2) Atypical chest pain: Status: Acute (3) Anemia: Status: Acute (4) Weakness: Status: Acute 79 YM with COPD,, CKD, chronic anemia, CAD status post PCI with stent placement, GERD, HTN, hypothyroidism, HLD, history of GI bleed, legally blind, TIA, prostate cancer status post prostatectomy admitted with post prandial pain and odynophagia. His symptoms can be due to severe erosive esophagitiis with possible stricture, erika esophagitis or large hiatal hernia with intermittent torsion. Pt is on oral anticoagulation with warfarin. RECOMMENDATIONS: 1. Follow H & H daily and transfuse prn. 2. Continue PO Omeprazole and IV antiemetics prn 3. Barium swallow in the am 4. He needs further evaluation with upper endoscopy and possible dilation if esophageal stricture is detected. Procedures scheduled on 09/15/2020 at 9:30 am (Unable to perform EGD today since pt had lunch) Procedures Date of Service Date of Service: 09/12/20
--- NOTE | 2020-09-12 14:37 | MHC.CM.PN ---
IMM 09/12/20 Male 79 DX Anemia He lives with his Son and DTR in law. He is [place] and legally blind, requires assist with ADLs. He does not have services in place. DP Home with Family support and transport. HCP on file. CM will follow for a change in post hospital needs.
--- NOTE | 2020-09-12 15:35 | HO.PM.IMPN ---
Subjective Subjective Date of Service: 09/12/20 Interval History: the patient was seen and evaluated this morning Laying in bed, feels comfortable, very difficult to hear Reports some epistaxis this morning Denies any fever, chills or shortness of breath No reported other overnight events. Systemic review: No fever, chills or weakness No chest pain, palpitation No shortness of breath or coughing No abdominal pain, nausea or vomiting Report hematuria No any rash or wounds Physical Exam Vital Signs: Vital Signs: Last Vital Signs Temp 98.8 F 09/12/20 14:12 Pulse 66 09/12/20 14:12 Resp 18 09/12/20 14:12 BP 108/55 L 09/12/20 14:12 Pulse Ox 93 09/12/20 11:24 Body Mass Index 8.6 Const: Other: Constitutional : Alert, oriented, not in distress Neck : Normal inspection, Supple Cardiovascular : RRR, S1 S2, no lower extremity edema Respiratory : Good bilateral air entry, no crackles, wheezes or rhonchi Gastrointestinal: soft, lax, Normal bowel sounds, Non tender Skin : Warm/Dry, No rash Neurological : Alert & oriented x3, No focal deficit Objective Data Current Medications Generic Name Dose Route Start Last Admin Trade Name Freq PRN Reason Stop Dose Admin Acetaminophen 650 mg 09/12/20 01:21 09/12/20 12:09 Acetaminophen 325 Mg Tablet PO 650 mg Q6H PRN Administration Pain, Mild (Pain Scale 1-3) Albuterol Sulfate 2.5 mg 09/12/20 01:21 Albuterol Sulfate (0.083%) 2.5 Mg/3 Ml Vial.Neb INHALE Q4H PRN Respiratory Distress Albuterol Sulfate 1 puff 09/12/20 01:21 Albuterol Sulfate 90 Mcg 8 Gm Inhaler INHALE Q4H PRN Shortness Of Breath Atorvastatin Calcium 80 mg 09/12/20 21:00 Atorvastatin Calcium 80 Mg Tablet PO BEDTIME RAINE Docusate Sodium 100 mg 09/12/20 01:21 Docusate Sodium 100 Mg Capsule PO BEDTIME PRN Constipation Dronedarone 400 mg 09/12/20 09:00 09/12/20 08:02 Dronedarone Hcl 400 Mg Tablet PO 400 mg BID RAINE Administration Fluticasone Propionate 1 spray 09/12/20 09:00 09/12/20 08:02 Fluticasone Propionate Nasal 16 Gm [place] NOSTRIL-B 1 spray DAILY RAINE Administration Fluticasone/Vilanterol 1 puff 09/12/20 08:00 09/12/20 08:33 Fluticasone/Vilanterol 200/25 Blst.W.Dev INHALE 1 puff RDAILY RAINE Administration Folic Acid 1 mg 09/12/20 09:00 09/12/20 08:03 Folic Acid 1 Mg Tablet PO 1 mg DAILY RAINE Administration Levothyroxine Sodium 100 mcg 09/12/20 06:30 09/12/20 06:08 Levothyroxine Sodium 100 Mcg Tablet PO 100 mcg DAILY@0630 [facility] Administration Metoprolol Succinate 100 mg 09/12/20 09:00 09/12/20 08:02 Metoprolol Succinate Er 100 Mg Tab.Er.24h PO 100 mg DAILY [facility] Administration Protocol Omeprazole 20 mg 09/12/20 06:30 09/12/20 06:08 Omeprazole 20 Mg Capsule.Dr PO 20 mg DAILY@0630 [facility] Administration Ondansetron HCl 4 mg 09/12/20 01:21 Ondansetron Hcl 4 Mg/2 Ml Vial IVPUSH Q8H PRN Nausea and Vomiting Oxycodone HCl 2.5 mg 09/12/20 07:51 09/12/20 12:09 Oxycodone Hcl Immed Release 5 Mg Tablet PO 2.5 mg Q4H PRN Administration Pain, Severe (Pain Scale 7-10) Pharmacy Consult 1 each 09/11/20 12:23 Consult Rx Perform Med Rec MISCELLANE ONCE PRN Consult order Sodium Chloride 3 ml 09/12/20 01:21 09/12/20 08:02 0.9 % Sodium Chloride Flush 3 Ml Syringe IVFLUSH 3 ml QSHIFT [facility] Administration Tiotropium [place] 1 puff 09/12/20 08:00 09/12/20 08:33 Tiotropium [place] 18 Mcg Cap.W.Dev INHALE 1 puff RDAILY [facility] Administration Vitamin D 25 mcg 09/12/20 09:00 09/12/20 08:03 Cholecalciferol (Vitamin D3) 25 Mcg Tablet PO 25 mcg DAILY [facility] Administration Labs CBC & Chem 7: 09/12/20 05:45 09/12/20 05:45 Assessment and Plan (1) Atypical chest pain: Status: Acute (2) Normocytic anemia: Status: Acute (3) Elevated INR: Status: Acute (4) Rib fracture: Status: Acute (5) Hematuria: Status: Acute (6) Dysphagia: Status: Acute Assessment and Plan: 79-year-old male with an extensive past medical history as mentioned above presents to the hospital with right-sided chest pain Rib fractures supportive measures with Tylenol for pain DIGITAL EDITOR evaluated the patient, can be on modified diet Acute blood loss anemia Likely secondary to GIB Hemoglobin of 7.1 this morning, to transfuse 2 units of blood GI input appreciated, start with endoscopy on Tuesday Hematuria Secondary to elevated INR, resolving Pending Urology evaluation Supratherapeutic INR INR of 7 at admission. Received vitamin K Repeated INR within normal AFib hold Coumadin continue metoprolol hypothyroidism continue levothyroxine COPD denies any dyspnea, no excessive sputum production continue home inhalers monitor for exacerbation DVT prophylaxis SCDs
[2020-09-12] MEDS: Albuterol Sulfate (0.083%) 2.5 MG/3 ML VIAL.NEB INHALE (18:43)
[2020-09-12] MEDS: Atorvastatin Calcium 80 MG TABLET PO (20:44)
[2020-09-13] VITALS (9 sets, daily range): BP systolic 95–132; BP diastolic 51–73; PULSE 65–82; RESP 18–19; TEMP 35.9–37.1; O2SAT 90–96
[2020-09-13] MEDS: oxyCODONE HCl Immed Release 5 MG TABLET 2.5 MG PO ×5 (01:19→21:10)
[2020-09-13] MEDS: Omeprazole 20 MG CAPSULE.DR PO (06:05)
[2020-09-13] MEDS: Levothyroxine Sodium 100 MCG TABLET PO (06:06)
[2020-09-13 07:17] LABS: MANUAL DIFF FLAG NO
[2020-09-13 07:26] LABS: Basophils Percent Auto 0.2 % (0-2); Eosinophils Absolute Auto 0.1 X10*3/uL (0.0-0.4); Eosinophils Percent Auto 0.9 % (0-4); Imm Gran Abs Auto 0.03 X10*3/uL (0.00-0.03); Imm Gran Pct Auto 0.3 % (0.0-0.4); Lymphocytes Percent Auto 10.6 % (20-40); Mean Corpuscular HGB Conc 32.4 g/dl (31.0-36.0); Mean Corpuscular Hemoglobin 30.7 pg (27.0-33.0); Mean Platelet Volume 8.8 fL (9.4-12.4); Monocytes Percent Auto 10.8 % (2-11); Neutrophils Absolute Auto 7.1 X10*3/uL (2.0-8.3); Neutrophils Percent Auto 77.2 % (45-73); Platelet Count 369 X10*3/uL (160-400); Red Blood Count 3.58 X10*6/uL (4.60-5.80); Red Cell Distribution Width 16.9 % (11.0-16.0); White Blood Count 9.2 X10*3/uL (4.8-10.8)
[2020-09-13] MEDS: Fluticasone/Vilanterol 200/25 BLST.W.DEV 1 PUFF INHALE (07:45)
[2020-09-13 08:11] LABS: Blood Urea Nitrogen 12 mg/dL (9-16); Calcium 7.8 mg/dL (8.4-10.2); Creatinine Clr Calc Pharmacy 17.2; Estimated Glomerular Filt Rate 58; Glucose Random 78 mg/dL (60-115)
[2020-09-13 08:30] LABS: Anion Gap 13 (12-20); Carbon Dioxide 22 mmol/L (22-29); Chloride 110 mmol/L (96-108); Sodium 141 mmol/L (135-145)
[2020-09-13] MEDS: 0.9 % Sodium Chloride Flush 3 ML SYRINGE IVFLUSH ×3 (09:24→21:18)
[2020-09-13] MEDS: Dronedarone HCl 400 MG TABLET PO ×2 (11:52→21:05)
[2020-09-13] MEDS: Folic Acid 1 MG TABLET PO (11:53)
[2020-09-13] MEDS: Cholecalciferol (Vitamin D3) 25 MCG TABLET PO (11:54)
[2020-09-13] MEDS: Metoprolol Succinate ER 100 MG TAB.ER.24H PO (11:55)
--- NOTE | 2020-09-13 15:36 | P.PNIM_ITS ---
Subjective Subjective Date of Service: 09/13/20 Interval History: the patient was seen and evaluated this morning Laying in bed, feels comfortable, very difficult to hear but feels overall comfortable with no reported bleeding of last night Denies any fever, chills or shortness of breath No reported other overnight events. Systemic review: No fever, chills or weakness No chest pain, palpitation No shortness of breath or coughing No abdominal pain, nausea or vomiting No any rash or wounds Physical Exam Vital Signs: Vital Signs: Last Vital Signs Temp 97.6 F 09/13/20 11:20 Pulse 77 09/13/20 11:55 Resp 18 09/13/20 11:20 BP 125/73 09/13/20 11:55 Pulse Ox 96 09/13/20 11:20 Body Mass Index 8.6 Const: Other: Constitutional : Alert, oriented, not in distress Neck : Normal inspection, Supple Cardiovascular : RRR, S1 S2, no lower extremity edema Respiratory : Good bilateral air entry, no crackles, wheezes or rhonchi Gastrointestinal: soft, lax, Normal bowel sounds, Non tender Skin : Warm/Dry, No rash Neurological : Alert & oriented x3, No focal deficit Objective Data Current Medications Generic Name Dose Route Start Last Admin Trade Name Freq PRN Reason Stop Dose Admin Acetaminophen 650 mg 09/12/20 01:21 09/12/20 12:09 Acetaminophen 325 Mg Tablet PO 650 mg Q6H PRN Administration Pain, Mild (Pain Scale 1-3) Albuterol Sulfate 2.5 mg 09/12/20 01:21 09/12/20 18:43 Albuterol Sulfate (0.083%) 2.5 Mg/3 Ml Vial.Neb INHALE 2.5 mg Q4H PRN Administration Respiratory Distress Albuterol Sulfate 1 puff 09/12/20 01:21 Albuterol Sulfate 90 Mcg 8 Gm Inhaler INHALE Q4H PRN Shortness Of Breath Atorvastatin Calcium 80 mg 09/12/20 21:00 09/12/20 20:44 Atorvastatin Calcium 80 Mg Tablet PO 80 mg BEDTIME [facility] Administration Docusate Sodium 100 mg 09/12/20 01:21 Docusate Sodium 100 Mg Capsule PO BEDTIME PRN Constipation Dronedarone 400 mg 09/12/20 09:00 09/13/20 11:52 Dronedarone Hcl 400 Mg Tablet PO 400 mg BID [facility] Administration Fluticasone Propionate 1 spray 09/12/20 09:00 09/13/20 09:23 Fluticasone Propionate Nasal 16 Gm [place] NOSTRIL-B Not Given DAILY [facility] Fluticasone/Vilanterol 1 puff 09/12/20 08:00 09/13/20 07:45 Fluticasone/Vilanterol 200/25 Blst.W.Dev INHALE 1 puff RDAILY [facility] Administration Folic Acid 1 mg 09/12/20 09:00 09/13/20 11:53 Folic Acid 1 Mg Tablet PO 1 mg DAILY [facility] Administration Levothyroxine Sodium 100 mcg 09/12/20 06:30 09/13/20 06:06 Levothyroxine Sodium 100 Mcg Tablet PO 100 mcg DAILY@30 [facility] Administration Metoprolol Succinate 100 mg 09/12/20 09:00 09/13/20 11:55 Metoprolol Succinate Er 100 Mg Tab.Er.24h PO 100 mg DAILY [facility] Administration Protocol Omeprazole 20 mg 09/12/20 06:30 09/13/20 06:05 Omeprazole 20 Mg Capsule.Dr PO 20 mg DAILY@30 [facility] Administration Ondansetron HCl 4 mg 09/12/20 01:21 Ondansetron Hcl 4 Mg/2 Ml Vial IVPUSH Q8H PRN Nausea and Vomiting Oxycodone HCl 2.5 mg 09/12/20 07:51 09/13/20 11:51 Oxycodone Hcl Immed Release 5 Mg Tablet PO 2.5 mg Q4H PRN Administration Pain, Severe (Pain Scale 7-10) Pharmacy Consult 1 each 09/11/20 12:23 Consult Rx Perform Med Rec MISCELLANE ONCE PRN Consult order Sodium Chloride 3 ml 09/12/20 01:21 09/13/20 09:24 0.9 % Sodium Chloride Flush 3 Ml Syringe IVFLUSH 3 ml QSHIFT [facility] Administration Tiotropium [place] 1 puff 09/12/20 08:00 09/13/20 07:45 Tiotropium [place] 18 Mcg Cap.W.Dev INHALE 1 puff RDAILY [facility] Administration Vitamin D 25 mcg 09/12/20 09:00 09/13/20 11:54 Cholecalciferol (Vitamin D3) 25 Mcg Tablet PO 25 mcg DAILY [facility] Administration Labs CBC & Chem 7: 09/13/20 06:05 09/13/20 06:05 Assessment and Plan (1) Atypical chest pain: Status: Acute (2) Normocytic anemia: Status: Acute (3) Elevated INR: Status: Acute (4) Rib fracture: Status: Acute (5) Hematuria: Status: Acute (6) Dysphagia: Status: Acute Assessment and Plan: 79-year-old male with an extensive past medical history as mentioned above presents to the hospital with right-sided chest pain Rib fractures supportive measures with Tylenol for pain [employer] evaluated the patient, can be on modified diet Acute blood loss anemia Esophageal narrowing Likely secondary to GIB Hemoglobin improved to 10 this morning after transfuse 2 units of blood Barium swallow showed Moderate narrowing and irregularity mucosa mid esophagus suspicious for underlying lesion or stricture GI input appreciated, to do endoscopy on Tuesday Hematuria Secondary to elevated INR, resolved Pending Urology evaluation Supratherapeutic INR INR of 1.2 after receiving vitamin K Repeated INR within normal AFib hold Coumadin continue metoprolol hypothyroidism continue levothyroxine COPD denies any dyspnea, no excessive sputum production continue home inhalers monitor for exacerbation DVT prophylaxis SCDs
[2020-09-13] MEDS: Atorvastatin Calcium 80 MG TABLET PO (21:05)
[2020-09-14] VITALS (7 sets, daily range): BP systolic 100–118; BP diastolic 53–65; PULSE 69–82; RESP 18–20; TEMP 36.9–37.5; O2SAT 90–97
[2020-09-14] MEDS: Levothyroxine Sodium 100 MCG TABLET PO (06:00)
[2020-09-14] MEDS: Omeprazole 20 MG CAPSULE.DR PO (06:02)
[2020-09-14] MEDS: Fluticasone/Vilanterol 200/25 BLST.W.DEV 1 PUFF INHALE (07:54)
[2020-09-14 08:28] LABS: MANUAL DIFF FLAG NO
[2020-09-14 08:34] LABS: Basophils Percent Auto 0.2 % (0-2); Eosinophils Absolute Auto 0.1 X10*3/uL (0.0-0.4); Eosinophils Percent Auto 1.3 % (0-4); Hematocrit 33.7 % (42-52); Hemoglobin 10.8 g/dl (14.0-18.0); Imm Gran Abs Auto 0.05 X10*3/uL (0.00-0.03); Imm Gran Pct Auto 0.5 % (0.0-0.4); Lymphocytes Absolute Auto 0.7 X10*3/uL (1.2-4.9); Lymphocytes Percent Auto 7.2 % (20-40); Mean Corpuscular Hemoglobin 30.2 pg (27.0-33.0); Mean Corpuscular Volume 94.1 fL (80-98); Mean Platelet Volume 8.9 fL (9.4-12.4); Monocytes Percent Auto 10.1 % (2-11); Neutrophils Absolute Auto 8.1 X10*3/uL (2.0-8.3); Neutrophils Percent Auto 80.7 % (45-73); Platelet Count 353 X10*3/uL (160-400); Red Blood Count 3.58 X10*6/uL (4.60-5.80); Red Cell Distribution Width 16.4 % (11.0-16.0)
[2020-09-14] MEDS: oxyCODONE HCl Immed Release 5 MG TABLET 2.5 MG PO ×3 (09:22→20:43)
[2020-09-14] MEDS: Cholecalciferol (Vitamin D3) 25 MCG TABLET PO (09:23)
[2020-09-14] MEDS: Dronedarone HCl 400 MG TABLET PO ×2 (09:23→20:35)
[2020-09-14] MEDS: 0.9 % Sodium Chloride Flush 3 ML SYRINGE IVFLUSH ×2 (09:23→15:51)
[2020-09-14] MEDS: Fluticasone Propionate Nasal 16 GM SPRAY 1 SPRAY NOSTRIL-B (09:23)
[2020-09-14] MEDS: Metoprolol Succinate ER 100 MG TAB.ER.24H PO (09:23)
[2020-09-14] MEDS: Folic Acid 1 MG TABLET PO (09:23)
--- NOTE | 2020-09-14 12:57 | P.PNIM_ITS ---
Subjective Subjective Date of Service: 09/14/20 Interval History: the patient was seen and evaluated this morning Laying in bed, feels comfortable, very difficult to hear but feels overall comfortable no reported bleeding of last night Denies any fever, chills or shortness of breath No reported other overnight events. Systemic review: No fever, chills or weakness No chest pain, palpitation No shortness of breath or coughing No abdominal pain, nausea or vomiting No any rash or wounds Physical Exam Vital Signs: Vital Signs: Last Vital Signs Temp 99.5 F 09/14/20 11:09 Pulse 73 09/14/20 11:09 Resp 18 09/14/20 11:09 BP 100/65 09/14/20 11:09 Pulse Ox 92 09/14/20 11:09 Body Mass Index 8.6 Const: Other: Constitutional : Alert, oriented, not in distress Neck : Normal inspection, Supple Cardiovascular : RRR, S1 S2, no lower extremity edema Respiratory : Good bilateral air entry, no crackles, wheezes or rhonchi Gastrointestinal: soft, lax, Normal bowel sounds, Non tender Skin : Warm/Dry, No rash Neurological : Alert & oriented x3, No focal deficit Objective Data Current Medications Generic Name Dose Route Start Last Admin Trade Name Freq PRN Reason Stop Dose Admin Acetaminophen 650 mg 09/12/20 01:21 09/12/20 12:09 Acetaminophen 325 Mg Tablet PO 650 mg Q6H PRN Administration Pain, Mild (Pain Scale 1-3) Albuterol Sulfate 2.5 mg 09/12/20 01:21 09/12/20 18:43 Albuterol Sulfate (0.083%) 2.5 Mg/3 Ml Vial.Neb INHALE 2.5 mg Q4H PRN Administration Respiratory Distress Albuterol Sulfate 1 puff 09/12/20 01:21 Albuterol Sulfate 90 Mcg 8 Gm Inhaler INHALE Q4H PRN Shortness Of Breath Atorvastatin Calcium 80 mg 09/12/20 21:00 09/13/20 21:05 Atorvastatin Calcium 80 Mg Tablet PO 80 mg BEDTIME [facility] Administration Docusate Sodium 100 mg 09/12/20 01:21 Docusate Sodium 100 Mg Capsule PO BEDTIME PRN Constipation Dronedarone 400 mg 09/12/20 09:00 09/14/20 09:23 Dronedarone Hcl 400 Mg Tablet PO 400 mg BID [facility] Administration Fluticasone Propionate 1 spray 09/12/20 09:00 09/14/20 09:23 Fluticasone Propionate Nasal 16 Gm [place] NOSTRIL-B 1 spray DAILY [facility] Administration Fluticasone/Vilanterol 1 puff 09/12/20 08:00 09/14/20 07:54 Fluticasone/Vilanterol 200/25 Blst.W.Dev INHALE 1 puff RDAILY [facility] Administration Folic Acid 1 mg 09/12/20 09:00 09/14/20 09:23 Folic Acid 1 Mg Tablet PO 1 mg DAILY [facility] Administration Levothyroxine Sodium 100 mcg 09/12/20 06:30 09/14/20 06:00 Levothyroxine Sodium 100 Mcg Tablet PO 100 mcg DAILY@30 [facility] Administration Metoprolol Succinate 100 mg 09/12/20 09:00 09/14/20 09:23 Metoprolol Succinate Er 100 Mg Tab.Er.24h PO 100 mg DAILY [facility] Administration Protocol Omeprazole 20 mg 09/12/20 06:30 09/14/20 06:02 Omeprazole 20 Mg Capsule.Dr PO 20 mg DAILY@30 [facility] Administration Ondansetron HCl 4 mg 09/12/20 01:21 Ondansetron Hcl 4 Mg/2 Ml Vial IVPUSH Q8H PRN Nausea and Vomiting Oxycodone HCl 2.5 mg 09/12/20 07:51 09/14/20 09:22 Oxycodone Hcl Immed Release 5 Mg Tablet PO 2.5 mg Q4H PRN Administration Pain, Severe (Pain Scale 7-10) Pharmacy Consult 1 each 09/11/20 12:23 Consult Rx Perform Med Rec MISCELLANE ONCE PRN Consult order Sodium Chloride 3 ml 09/12/20 01:21 09/14/20 09:23 0.9 % Sodium Chloride Flush 3 Ml Syringe IVFLUSH 3 ml QSHIFT [facility] Administration Tiotropium [place] 1 puff 09/12/20 08:00 09/14/20 07:54 Tiotropium [place] 18 Mcg Cap.W.Dev INHALE 1 puff RDAILY [facility] Administration Vitamin D 25 mcg 09/12/20 09:00 09/14/20 09:23 Cholecalciferol (Vitamin D3) 25 Mcg Tablet PO 25 mcg DAILY [facility] Administration Labs CBC & Chem 7: 09/14/20 07:41 09/13/20 06:05 Assessment and Plan (1) Atypical chest pain: Status: Acute (2) Normocytic anemia: Status: Acute (3) Elevated INR: Status: Acute (4) Rib fracture: Status: Acute (5) Hematuria: Status: Acute (6) Dysphagia: Status: Acute Assessment and Plan: 79-year-old male with an extensive past medical history as mentioned above presents to the hospital with right-sided chest pain Rib fractures supportive measures with Tylenol for pain [employer] evaluated the patient, can be on modified diet Acute blood loss anemia, GIB Esophageal narrowing Hemoglobin improved to 10.8 after transfuse 2 units of blood Barium swallow showed Moderate narrowing and irregularity mucosa mid esophagus suspicious for underlying lesion or stricture GI input appreciated, to do endoscopy on Tuesday Keep NPO after midnight Hematuria Secondary to elevated INR, resolved Pending Urology evaluation Supratherapeutic INR INR of 1.2 after receiving vitamin K Repeated INR within normal AFib hold Coumadin continue metoprolol hypothyroidism continue levothyroxine COPD denies any dyspnea, no excessive sputum production continue home inhalers monitor for exacerbation DVT prophylaxis SCDs
[2020-09-14] MEDS: Atorvastatin Calcium 80 MG TABLET PO (20:35)
[2020-09-15] VITALS (13 sets, daily range): BP systolic 74–129; BP diastolic 43–74; PULSE 59–93; RESP 14–20; TEMP 36.2–37.2; O2SAT 93–100; BMI 18.3
[2020-09-15] MEDS: 0.9 % Sodium Chloride Flush 3 ML SYRINGE IVFLUSH ×3 (00:52→18:41)
[2020-09-15] MEDS: Omeprazole 20 MG CAPSULE.DR PO (05:21)
[2020-09-15] MEDS: Levothyroxine Sodium 100 MCG TABLET PO (05:21)
[2020-09-15 06:12] LABS: MANUAL DIFF FLAG NO
[2020-09-15 06:16] LABS: Basophils Percent Auto 0.2 % (0-2); Eosinophils Absolute Auto 0.2 X10*3/uL (0.0-0.4); Hematocrit 32.6 % (42-52); Hemoglobin 10.4 g/dl (14.0-18.0); Imm Gran Abs Auto 0.03 X10*3/uL (0.00-0.03); Imm Gran Pct Auto 0.3 % (0.0-0.4); Lymphocytes Absolute Auto 0.8 X10*3/uL (1.2-4.9); Lymphocytes Percent Auto 8.9 % (20-40); Mean Corpuscular HGB Conc 31.9 g/dl (31.0-36.0); Mean Corpuscular Hemoglobin 30.2 pg (27.0-33.0); Mean Corpuscular Volume 94.8 fL (80-98); Mean Platelet Volume 8.7 fL (9.4-12.4); Monocytes Percent Auto 10.6 % (2-11); Neutrophils Absolute Auto 7.1 X10*3/uL (2.0-8.3); Platelet Count 306 X10*3/uL (160-400); Red Blood Count 3.44 X10*6/uL (4.60-5.80); White Blood Count 9.1 X10*3/uL (4.8-10.8)
--- NOTE | 2020-09-15 08:44 | PC.NURSE ---
pt taken for procedure at 0840
--- NOTE | 2020-09-15 08:58 | P.CONAN_ITS ---
[facility] Active Problems Active Problems: All Active Problems (Updated 09/12/20 @ 06:41 by Michael Rea MD) Dysphagia (Acute) Hematuria (Acute) Rib fracture (Acute) Atypical chest pain (Acute) Normocytic anemia (Acute) Weakness (Acute) Anemia (Acute) Elevated INR (Acute) TONI (acute kidney injury) (Acute) Allergic rhinitis (Acute) COPD (chronic obstructive pulmonary disease) (Acute) Smoker (Acute) Past Medical History Medical History Allergic rhinitis Atrial fibrillation CAD (coronary artery disease) CKD (chronic kidney disease) COPD (chronic obstructive pulmonary disease) GERD (gastroesophageal reflux disease) History of GI bleed HLD (hyperlipidemia) Hypertension Hypothyroidism Prostate cancer Smoker Surgical History Surgical History H/O prostatectomy Social History Social History Household Members: Family Household Members Other:: son and daughter in law Housing: House Do you presently have visiting nurse or other home services: No Alcohol intake: unknown Patient Tobacco Use Status: Current everyday Tobacco user Tobacco use type: Cigarette Cigarette Packs Per Day: 0.5 Cigarettes Per Day: 10.0 Smoked in Last 30 Days: Yes Patient Interested in Nicotine Replacement: No Second Hand Smoke Exposure: No Use of substances other than those prescribed or required for medical reasons: No Currently Displaying Signs/Symptoms of Drug Intoxication Withdrawal: No Any prior treatment program specific to substance use: No Have you been hit, kicked, punched, or otherwise hurt by someone within the past year? If so, by whom?: No Do you feel safe in your current relationship?: No Current Relationship Is there a partner from a previous relationship who is making you feel unsafe now?: No Are you made to feel afraid or neglected: No Are you DNR?: Yes Advance Directives: Yes Advance Directives Information Provided: Yes Advance Directives on File: No Advance Directives Date on File: 09/12/20 Do you have thoughts of harming others: None Do you have a plan to hurt others: No Plan Recently lost weight without trying: No Eating poorly because of decreased appetite: Yes Nutrition Risks: Difficulty swallowing Poor oral hygiene: Yes service: Yes Current occupational status: disabled Meds Allergies Allergy/AdvReac Type Severity Reaction Status Date / Time lisinopril [LISINOPRIL] Allergy Severe ANGIOEDEMA Verified 06/16/20 10:54 quinine [Quinine] Allergy Unknown HIVES Verified 06/16/20 10:54 Active Medications: Current Medications Generic Name Dose Route Start Last Admin Trade Name Dian PRN Reason Stop Dose Admin Acetaminophen 650 mg 09/12/20 01:21 09/12/20 12:09 Acetaminophen 325 Mg Tablet PO 650 mg Q6H PRN Administration Pain, Mild (Pain Scale 1-3) Albuterol Sulfate 2.5 mg 09/12/20 01:21 09/12/20 18:43 Albuterol Sulfate (0.083%) 2.5 Mg/3 Ml Vial.Neb INHALE 2.5 mg Q4H PRN Administration Respiratory Distress Albuterol Sulfate 1 puff 09/12/20 01:21 Albuterol Sulfate 90 Mcg 8 Gm Inhaler INHALE Q4H PRN Shortness Of Breath Atorvastatin Calcium 80 mg 09/12/20 21:00 09/14/20 20:35 Atorvastatin Calcium 80 Mg Tablet PO 80 mg BEDTIME [facility] Administration Docusate Sodium 100 mg 09/12/20 01:21 Docusate Sodium 100 Mg Capsule PO BEDTIME PRN Constipation Dronedarone 400 mg 09/12/20 09:00 09/15/20 08:43 Dronedarone Hcl 400 Mg Tablet PO Not Given BID [facility] Fluticasone Propionate 1 spray 09/12/20 09:00 09/15/20 08:43 Fluticasone Propionate Nasal 16 Gm [place] NOSTRIL-B Not Given DAILY [facility] Fluticasone/Vilanterol 1 puff 09/12/20 08:00 09/15/20 07:56 Fluticasone/Vilanterol 200/25 Blst.W.Dev INHALE Not Given RDAILY [facility] Folic Acid 1 mg 09/12/20 09:00 09/15/20 08:43 Folic Acid 1 Mg Tablet PO Not Given DAILY [facility] Levothyroxine Sodium 100 mcg 09/12/20 06:30 09/15/20 05:21 Levothyroxine Sodium 100 Mcg Tablet PO 100 mcg DAILY@0630 [facility] Administration Metoprolol Succinate 100 mg 09/12/20 09:00 09/15/20 08:43 Metoprolol Succinate Er 100 Mg Tab.Er.24h PO Not Given DAILY [facility] Protocol Omeprazole 20 mg 09/12/20 06:30 09/15/20 05:21 Omeprazole 20 Mg Capsule. PO 20 mg DAILY@0630 [facility] Administration Ondansetron HCl 4 mg 09/12/20 01:21 Ondansetron Hcl 4 Mg/2 Ml Vial IVPUSH Q8H PRN Nausea and Vomiting Oxycodone HCl 2.5 mg 09/12/20 07:51 09/14/20 20:43 Oxycodone Hcl Immed Release 5 Mg Tablet PO 2.5 mg Q4H PRN Administration Pain, Severe (Pain Scale 7-10) Pharmacy Consult 1 each 09/11/20 12:23 Consult Rx Perform Med Rec MISCELLANE ONCE PRN Consult order Sodium Chloride 3 ml 09/12/20 01:21 09/15/20 08:07 0.9 % Sodium Chloride Flush 3 Ml Syringe IVFLUSH 3 ml QSHIFT [facility] Administration Tiotropium [place] 1 puff 09/12/20 08:00 09/15/20 07:55 Tiotropium [place] 18 Mcg Cap.W.Dev INHALE Not Given RDAILY [facility] Vitamin D 25 mcg 09/12/20 09:00 09/15/20 08:43 Cholecalciferol (Vitamin D3) 25 Mcg Tablet PO Not Given DAILY [facility] Home Medications Medication Instructions Recorded Confirmed Last Taken Type albuterol sulfate 90 mcg/actuation 1 inh INHALATION Q4H PRN 06/16/20 09/11/20 Unknown History aerosol inhaler amlodipine 5 mg tablet 5 mg PO DAILY 06/16/20 09/11/20 09/11/20 History cholecalciferol (vitamin D3) 25 25 mcg PO DAILY 06/16/20 09/11/20 09/11/20 History mcg (1,000 unit) tablet docusate sodium 100 mg capsule 100 mg PO BEDTIME PRN 06/16/20 09/11/20 Unknown History dronedarone 400 mg tablet 400 mg PO BID 06/16/20 09/11/20 09/11/20 History ferrous sulfate 325 mg (65 mg 325 mg PO DAILY 06/16/20 09/11/20 Unknown History iron) tablet fluticasone propionate 50 1 spray INTRANASAL DAILY 06/16/20 09/11/20 Unknown History mcg/actuation nasal spray,suspension folic acid 1 mg tablet 1 mg PO DAILY 06/16/20 09/11/20 09/11/20 History levothyroxine 100 mcg tablet 100 mcg PO DAILY@0630 06/16/20 09/11/20 Unknown History metoprolol succinate 100 mg 100 mg PO DAILY 06/16/20 09/11/20 09/11/20 History tablet,extended release 24 hr omeprazole 20 mg capsule,delayed 20 mg PO DAILY@0630 06/16/20 09/11/20 09/11/20 History release rosuvastatin 20 mg tablet 20 mg PO BEDTIME 06/16/20 09/11/20 09/10/20 History tiotropium bromide 18 mcg capsule 1 cap INHALATION DAILY 06/16/20 09/11/20 09/11/20 History with inhalation device warfarin 3 mg tablet 3 mg PO SUTUTHFRSA@1800 06/16/20 09/11/20 Unknown History warfarin 4 mg tablet 4 mg PO MOWE@1800 06/16/20 09/11/20 Unknown History albuterol sulfate 2.5 mg INHALATION Q4H PRN 09/11/20 09/11/20 Unknown History Exam Exam Date and Time: September 15, 2020 0858 Height,Weight and Vital Signs: Height 5 ft 6 in Weight 24.494 kg Last Vital Signs Temp 97.7 F 09/15/20 07:34 Pulse 75 09/15/20 07:34 Resp 18 09/15/20 07:34 BP 103/59 L 09/15/20 07:34 Pulse Ox 93 09/15/20 07:34 Pertinent Lab Results Pertinent Lab Results: Laboratory Tests 09/11/20 09/11/20 09/11/20 12:56 12:56 12:56 WBC 8.1 RBC 2.57 L D Hgb 7.8 L D Hct 25.1 L D MCV 97.7 MCH 30.4 MCHC 31.1 RDW 17.4 H Plt Count 494 H D MPV 8.4 L Immature Gran % (Auto) 0.2 Neut % (Auto) 78.2 H Lymph % (Auto) 10.9 L [place] % (Auto) 9.3 Eos % (Auto) 1.0 Baso % (Auto) 0.4 Lymph # (Auto) 0.9 L [place] # (Auto) 0.8 Eos # (Auto) 0.1 Baso # (Auto) 0.0 Abs Immat Gran (auto) 0.02 Absolute Neuts (auto) 6.4 Absolute Nucleated RBC 0.000 Nucleated RBC % (auto) 0.0 PT INR APTT Sodium 140 Potassium 3.7 Chloride 108 Carbon Dioxide 24 Anion Gap 12 BUN 21 H Creatinine 1.96 H Estim Creat Clear Calc 10.5 Estimated GFR 33 Random Glucose 96 Calcium 8.4 Magnesium 2.3 Ferritin 56 Total Bilirubin 0.4 Direct Bilirubin 0.2 AST 32 D ALT 37 Alkaline Phosphatase 49 Troponin I High Sens 7.1 Total Protein 5.6 L Albumin 3.2 L Lipase 12 Vitamin B12 Folate Urine Color Urine Appearance Urine pH Ur Specific [place] Urine Protein Urine Glucose (UA) Urine Ketones Urine Blood Urine Nitrite Ur Leukocyte Esterase Urine RBC Urine WBC Ur Squamous Epith Cells Urine Bacteria Granular Casts Stool Occult Blood Coronavirus (PCR) Influenza Type A (PCR) Influenza Type B (PCR) RSV RNA Qual (PCR) Blood Type Antibody Screen Crossmatch 09/11/20 09/11/20 09/11/20 12:56 12:56 12:56 WBC RBC Hgb Hct MCV MCH MCHC RDW Plt Count MPV Immature Gran % (Auto) Neut % (Auto) Lymph % (Auto) [place] % (Auto) Eos % (Auto) Baso % (Auto) Lymph # (Auto) [place] # (Auto) Eos # (Auto) Baso # (Auto) Abs Immat Gran (auto) Absolute Neuts (auto) Absolute Nucleated RBC Nucleated RBC % (auto) PT 102.5 H D INR 8.4 H* D APTT 74.8 H* Sodium Potassium Chloride Carbon Dioxide Anion Gap BUN Creatinine Estim Creat Clear Calc Estimated GFR Random Glucose Calcium Magnesium Ferritin Total Bilirubin Direct Bilirubin AST ALT Alkaline Phosphatase Troponin I High Sens Total Protein Albumin Lipase Vitamin B12 1143 H Folate > 20.0 Urine Color Urine Appearance Urine pH Ur Specific [place] Urine Protein Urine Glucose (UA) Urine Ketones Urine Blood Urine Nitrite Ur Leukocyte Esterase Urine RBC Urine WBC Ur Squamous Epith Cells Urine Bacteria Granular Casts Stool Occult Blood Coronavirus (PCR) NEGATIVE Influenza Type A (PCR) NEGATIVE Influenza Type B (PCR) NEGATIVE RSV RNA Qual (PCR) NEGATIVE Blood Type Antibody Screen Crossmatch 09/11/20 09/11/20 09/11/20 13:37 14:36 16:21 WBC RBC Hgb Hct MCV MCH MCHC RDW Plt Count MPV Immature Gran % (Auto) Neut % (Auto) Lymph % (Auto) [place] % (Auto) Eos % (Auto) Baso % (Auto) Lymph # (Auto) [place] # (Auto) Eos # (Auto) Baso # (Auto) Abs Immat Gran (auto) Absolute Neuts (auto) Absolute Nucleated RBC Nucleated RBC % (auto) PT INR APTT Sodium Potassium Chloride Carbon Dioxide Anion Gap BUN Creatinine Estim Creat Clear Calc Estimated GFR Random Glucose Calcium Magnesium Ferritin Total Bilirubin Direct Bilirubin AST ALT Alkaline Phosphatase Troponin I High Sens Total Protein Albumin Lipase Vitamin B12 Folate Urine Color YELLOW Urine Appearance CLEAR Urine pH 6.0 Ur Specific [place] 1.025 Urine Protein 2+ H Urine Glucose (UA) NEG Urine Ketones NEG Urine Blood 2+ H Urine Nitrite NEG Ur Leukocyte Esterase NEG Urine RBC 15-29 H Urine WBC 0-2 Ur Squamous Epith Cells NONE Urine Bacteria 1+ Granular Casts 5-9 Stool Occult Blood NEGATIVE Coronavirus (PCR) Influenza Type A (PCR) Influenza Type B (PCR) RSV RNA Qual (PCR) Blood Type O Positive Antibody Screen NEGATIVE Crossmatch See Detail 09/11/20 09/12/20 09/12/20 16:28 05:45 05:45 WBC 7.1 RBC 2.31 L Hgb 7.1 L Hct 23.1 L MCV 100.0 H MCH 30.7 MCHC 30.7 L RDW 17.5 H Plt Count 399 MPV 8.8 L Immature Gran % (Auto) 0.1 Neut % (Auto) 77.3 H Lymph % (Auto) 11.7 L [place] % (Auto) 9.3 Eos % (Auto) 1.3 Baso % (Auto) 0.3 Lymph # (Auto) 0.8 L [place] # (Auto) 0.7 Eos # (Auto) 0.1 Baso # (Auto) 0.0 Abs Immat Gran (auto) 0.01 Absolute Neuts (auto) 5.5 Absolute Nucleated RBC 0.000 Nucleated RBC % (auto) 0.0 PT INR APTT Sodium 140 Potassium 3.6 Chloride 113 H Carbon Dioxide 21 L Anion Gap 10 L BUN 15 Creatinine 1.48 H Estim Creat Clear Calc 14.0 Estimated GFR 46 Random Glucose 115 Calcium 7.5 L D Magnesium Ferritin Total Bilirubin Direct Bilirubin AST ALT Alkaline Phosphatase Troponin I High Sens 9.0 Total Protein Albumin Lipase Vitamin B12 Folate Urine Color Urine Appearance Urine pH Ur Specific [place] Urine Protein Urine Glucose (UA) Urine Ketones Urine Blood Urine Nitrite Ur Leukocyte Esterase Urine RBC Urine WBC Ur Squamous Epith Cells Urine Bacteria Granular Casts Stool Occult Blood Coronavirus (PCR) Influenza Type A (PCR) Influenza Type B (PCR) RSV RNA Qual (PCR) Blood Type Antibody Screen Crossmatch 09/12/20 09/13/20 09/13/20 07:51 06:05 06:05 WBC 9.2 RBC 3.58 L D Hgb 11.0 L D Hct 34.0 L D MCV 95.0 D MCH 30.7 MCHC 32.4 RDW 16.9 H Plt Count 369 MPV 8.8 L Immature Gran % (Auto) 0.3 Neut % (Auto) 77.2 H Lymph % (Auto) 10.6 L [place] % (Auto) 10.8 Eos % (Auto) 0.9 Baso % (Auto) 0.2 Lymph # (Auto) 1.0 L [place] # (Auto) 1.0 Eos # (Auto) 0.1 Baso # (Auto) 0.0 Abs Immat Gran (auto) 0.03 Absolute Neuts (auto) 7.1 Absolute Nucleated RBC 0.000 Nucleated RBC % (auto) 0.0 PT 14.3 H D INR 1.2 H APTT Sodium 141 Potassium 4.0 Chloride 110 H Carbon Dioxide 22 Anion Gap 13 BUN 12 Creatinine 1.20 Estim Creat Clear Calc 17.2 Estimated GFR 58 Random Glucose 78 Calcium 7.8 L Magnesium Ferritin Total Bilirubin Direct Bilirubin AST ALT Alkaline Phosphatase Troponin I High Sens Total Protein Albumin Lipase Vitamin B12 Folate Urine Color Urine Appearance Urine pH Ur Specific [place] Urine Protein Urine Glucose (UA) Urine Ketones Urine Blood Urine Nitrite Ur Leukocyte Esterase Urine RBC Urine WBC Ur Squamous Epith Cells Urine Bacteria Granular Casts Stool Occult Blood Coronavirus (PCR) Influenza Type A (PCR) Influenza Type B (PCR) RSV RNA Qual (PCR) Blood Type Antibody Screen Crossmatch 09/14/20 09/15/20 07:41 05:52 WBC 10.0 9.1 RBC 3.58 L 3.44 L Hgb 10.8 L 10.4 L Hct 33.7 L 32.6 L MCV 94.1 94.8 MCH 30.2 30.2 MCHC 32.0 31.9 RDW 16.4 H 16.0 Plt Count 353 306 MPV 8.9 L 8.7 L Immature Gran % (Auto) 0.5 H 0.3 Neut % (Auto) 80.7 H 78.0 H Lymph % (Auto) 7.2 L 8.9 L [place] % (Auto) 10.1 10.6 Eos % (Auto) 1.3 2.0 Baso % (Auto) 0.2 0.2 Lymph # (Auto) 0.7 L 0.8 L [place] # (Auto) 1.0 1.0 Eos # (Auto) 0.1 0.2 Baso # (Auto) 0.0 0.0 Abs Immat Gran (auto) 0.05 H 0.03 Absolute Neuts (auto) 8.1 7.1 Absolute Nucleated RBC 0.000 0.000 Nucleated RBC % (auto) 0.0 0.0 PT INR APTT Sodium Potassium Chloride Carbon Dioxide Anion Gap BUN Creatinine Estim Creat Clear Calc Estimated GFR Random Glucose Calcium Magnesium Ferritin Total Bilirubin Direct Bilirubin AST ALT Alkaline Phosphatase Troponin I High Sens Total Protein Albumin Lipase Vitamin B12 Folate Urine Color Urine Appearance Urine pH Ur Specific [place] Urine Protein Urine Glucose (UA) Urine Ketones Urine Blood Urine Nitrite Ur Leukocyte Esterase Urine RBC Urine WBC Ur Squamous Epith Cells Urine Bacteria Granular Casts Stool Occult Blood Coronavirus (PCR) Influenza Type A (PCR) Influenza Type B (PCR) RSV RNA Qual (PCR) Blood Type Antibody Screen Crossmatch Airway Mallampati Class: II TM Dist: >3cm Loose/Missing/Broken Teeth: Yes Heart: RRR Lungs: CTA Assessment and Plan Assessment Anesthesia Assessment: Anesthesia Plan Discussed and Chart Reviewed Final Anesthetic Review NPO: Yes ASA Class: III Final Preanesthetic Review: Meds/Allgs Chart Reviewed, Consent Obtained/Reviewed and Anes Risks/Benef Reviewed Patient Risk: High Procedure Risk: Intermediate Anesthetic Plan Anesthetic Plan: MAC: Disposition: Standard PACU
[2020-09-15] MEDS: Lactated Ringers 1,000 ML 50 ML IVCONT (09:38)
--- NOTE | 2020-09-15 09:50 | P.OP_ITS ---
Operative Note Operative Note Date of Service: 09/15/20 Narrative: Pre-op diagnosis: Dysphagia, abnormal barium swallow Post-op diagnosis: other (Esophageal mass with stricture, Gastritis, Duodenal polyp) Procedure: FLEXIBLE TRANSORAL UPPER GASTROINTESTINAL ENDOSCOPY WITH BIOPSIES AND ESOPHAGEAL BALLOON DILATION Consent: Indications for the procedure and potential complications of bleeding, perforation, reaction to medications and missed diagnosis were discussed with the patient and informed consent was obtained. Instrument: Olympus GIF H 190 mid size upper endoscope Monitoring: Vital signs and clinical assessment, continuous EKG monitoring, Pulse oximetry, Carbon Dioxide monitoring and blood pressure monitoring were done throughout the procedure. Procedure: The patient was placed in the left lateral decubitis position and pre-procedure medications were administered and a bite block was placed. The endoscope was inserted into the mouth and advanced under direct vision to the third part of duodenum. A careful inspection was made as the upper endoscope was withdrawn including a retroflexed examination of the proximal stomach; Findings and interventions are described below. Findings: Larynx: Normal Esophagus: Polypoidal mass with tight stricture at 24 cms. Stricture was dilated with 8, 9 and 10 mm CRE balloon x 60 secs at each level. A mid size upper endoscope was passed through the stricture with mild resistance. Stricture extended from 24 to 30 cms. GE junction at 38 cms, hiatal hernia 38 to 42 cms. Stomach: Mild gastric erythema. Biopsies were obtained. Grade 4 flap valve on retroflexed examination of the cardia. Duodenum: A 2 cms polyp in the medial wall of the apex of the bulb - biopsied. Normal descending duodenum Intervention: Biopsies and balloon dilation as noted above Impression and Post Procedure Diagnosis: Endoscopy Findings: ESOPHAGUS: Polypoidal mass with tight stricture at 24 cms. Stricture was dilated with 8, 9 and 10 mm CRE balloon x 60 secs at each level. A mid size upper endoscope was passed through the stricture with mild resistance. Stricture from 24 to 30 cms. GE junction at 38 cms, hiatal hernia 38 to 42 cms. STOMACH: Gastritis DUODENUM: 2 cms polyp apex of bulb - biopsied. Plan: Await pathology results. Obtain a chest CT scan with IV contrast. Oncology consult. Repeat EGD in 2 weeks for further dilation of esophageal stricture versus stent placement Surgeon: Bernardo Mcgovern MD Anesthesia: MAC (Greta Ulloa CRNA) Was an Blanket Cutting Machine Operator used for this Procedure?: No Blanket Cutting Machine Operator: Zan Matthews Estimated blood loss (mL): 0 Pathology: other (A- DOUDENAL BXS B- GASTRIC ANTRUM BXS R/O H.PYLORI C- BXS ESOPHAGEAL MASS WITH STRICTURE R/O CA) Condition: stable Disposition: PACU
--- NOTE | 2020-09-15 09:50 | MHC.SHP ---
Pre-Procedural Eval Section A The patient is an INPATIENT: Yes Changes since office visit: Yes New Medical Problems, Yes Changes in Medication and Yes Patient answered all questions; No Cold of Flu in the past 2 weeks The History & Physical has been completed within 30 days and I have reviewed it.: Yes Section B Chief Complaint: acute anemia Allergies: Allergies Allergy/AdvReac Type Severity Reaction Status Date / Time lisinopril [LISINOPRIL] Allergy Severe ANGIOEDEMA Verified 06/16/20 10:54 quinine [Quinine] Allergy Unknown HIVES Verified 06/16/20 10:54 Plan I have reviewed the history and physical and performed a pertinent physical examination on my patient. No changes have occurred unless specified.
--- NOTE | 2020-09-15 13:26 | MHC.SLORD ---
Speech Language Pathology Order Status: Patient is currently on [facility] (NDD2) solids and THIN liquids. Patient has a preference for softer food. Patient's barium swallow showed, moderate narrowing and irregularity mucosa mid esophagus suspicious for underlying lesion or stricture. Patient was made NPO for endoscopy this morning. BRIQUETTE MOLDER to f/u 1x time tomorrow morning.
--- NOTE | 2020-09-15 13:27 | MHC.CM.PN ---
Male 79 DX Anemia Endoscopy and PT eval today. Anticipate dc tomorrow 09/16/20. Pt will need assist with transportation.
[2020-09-15] MEDS: iohexoL 350 MG/ML 100 ML INFUS..BTL IV (13:41)
--- NOTE | 2020-09-15 15:15 | P.CNHO_ITS ---
Subjective - Subjective Chief complaint: Dysphagia Patient: new to practice Consult date: 09/15/20 Requesting Physician: Dr. Shaw Primary Care Provider: Unknown Physician HPI - Consult Narrative Reason for consult: Esophageal mass, probable cancer Narrative: Alec Vasquez is a 79 year old male who is admitted for GI bleeding secondary to esophageal mass, probable cancer. He had an EGD today, polypoidal mass found in the esophagus with stricture which was dilated. He has had progressive dysphagia for several weeks and lost lot of weight over 2-3 months. He also reports epigastric discomfort. He has been constipated, but denies hematochezia, he has not noticed melena. No fever or chills. He has no other complaints today. Review of Systems - Neurologic Denies hearing normal, Denies abnormal speech, Denies dizziness, Denies headache(s), Denies seizure-like activity Oncology Screenings - ECOG Performance Status ECOG Performance Status: 3 [facility] Medical History: Medical History (Last Reviewed 09/15/20 @ 09:23 by Argenis Lewis) Allergic rhinitis Atrial fibrillation CAD (coronary artery disease) CKD (chronic kidney disease) COPD (chronic obstructive pulmonary disease) GERD (gastroesophageal reflux disease) History of GI bleed HLD (hyperlipidemia) Hypertension Hypothyroidism Prostate cancer Smoker Surgical History: Surgical History (Last Reviewed 09/15/20 @ 09:23 by Argenis Lewis) H/O prostatectomy Social History: Social History (Last Reviewed 09/15/20 @ 09:23 by Argenis Lewis) Living Situation History: Household Members: Family Household Members Other:: son and daughter in law Housing: House Do you presently have visiting nurse or other home services: No Alcohol History: Alcohol intake: unknown Alcohol History Details: Alcohol intake frequency: former alcohol drinker Tobacco History: Patient Tobacco Use Status: Current everyday Tobacco Tobacco use type: Cigarette Cigarette Packs Per Day: 0.5 Smoked in Last 30 Days: Yes Patient Interested in Nicotine Replacement: No Second Hand Smoke Exposure: No Substance Use History: Use of substances other than those prescribed or required for medical reasons : No Currently Displaying Signs/Symptoms of Drug Intoxication Withdrawal: No Any prior treatment program specific to substance use: No Domestic Abuse History: Have you been hit, kicked, punched, or otherwise hurt by someone within the past year? If so, by whom?: No Do you feel safe in your current relationship?: No Current Relationship Is there a partner from a previous relationship who is making you feel unsafe now?: No Are you made to feel afraid or neglected: No Advance Directives: Are you DNR?: Yes Advance Directives: Yes Advance Directives Information Provided: Yes Advance Directives on File: No Advance Directives Date on File: 09/12/20 Homicidal Assessment: Do you have thoughts of harming others: None Do you have a plan to hurt others: No Plan Nutrition Assessment: Recently lost weight without trying: No Eating poorly because of decreased appetite: Yes Nutrition Risks: Difficulty swallowing Poor oral hygiene: Yes Occupation Assessmet: service: Yes Current occupational status: disabled Home Medications and Allergies Current Medications: Current Medications Generic Name Dose Route Start Last Admin Trade Name Freq PRN Reason Stop Dose Admin Acetaminophen 650 mg 09/12/20 01:21 09/12/20 12:09 Acetaminophen 325 Mg Tablet PO 650 mg Q6H PRN Administration Pain, Mild (Pain Scale 1-3) Albuterol Sulfate 2.5 mg 09/12/20 01:21 09/12/20 18:43 Albuterol Sulfate (0.083%) 2.5 Mg/3 Ml Vial.Neb INHALE 2.5 mg Q4H PRN Administration Respiratory Distress Albuterol Sulfate 1 puff 09/12/20 01:21 Albuterol Sulfate 90 Mcg 8 Gm Inhaler INHALE Q4H PRN Shortness Of Breath Atorvastatin Calcium 80 mg 09/12/20 21:00 09/14/20 20:35 Atorvastatin Calcium 80 Mg Tablet PO 80 mg BEDTIME [facility]INE Administration Docusate Sodium 100 mg 09/12/20 01:21 Docusate Sodium 100 Mg Capsule PO BEDTIME PRN Constipation Dronedarone 400 mg 09/12/20 09:00 09/15/20 08:43 Dronedarone Hcl 400 Mg Tablet PO Not Given BID [facility] Fluticasone Propionate 1 spray 09/12/20 09:00 09/15/20 08:43 Fluticasone Propionate Nasal 16 Gm [place] NOSTRIL-B Not Given DAILY [facility] Fluticasone/Vilanterol 1 puff 09/12/20 08:00 09/15/20 07:56 Fluticasone/Vilanterol 200/25 Blst.W.Dev INHALE Not Given RDAILY [facility] Folic Acid 1 mg 09/12/20 09:00 09/15/20 08:43 Folic Acid 1 Mg Tablet PO Not Given DAILY [facility] Lactated Ringer's 1,000 mls @ 50 mls/hr 09/15/20 09:45 09/15/20 11:05 Lr IVCONT Infused .Q20H [facility] Infusion Levothyroxine Sodium 100 mcg 09/12/20 06:30 09/15/20 05:21 Levothyroxine Sodium 100 Mcg Tablet PO 100 mcg DAILY@0630 [facility] Administration Metoprolol Succinate 100 mg 09/12/20 09:00 09/15/20 08:43 Metoprolol Succinate Er 100 Mg Tab.Er.24h PO Not Given DAILY [facility] Protocol Omeprazole 20 mg 09/12/20 06:30 09/15/20 05:21 Omeprazole 20 Mg Capsule.Dr PO 20 mg DAILY@0630 [facility] Administration Ondansetron HCl 4 mg 09/12/20 01:21 Ondansetron Hcl 4 Mg/2 Ml Vial IVPUSH Q8H PRN Nausea and Vomiting Oxycodone HCl 2.5 mg 09/12/20 07:51 09/14/20 20:43 Oxycodone Hcl Immed Release 5 Mg Tablet PO 2.5 mg Q4H PRN Administration Pain, Severe (Pain Scale 7-10) Pharmacy Consult 1 each 09/11/20 12:23 Consult Rx Perform Med Rec MISCELLANE ONCE PRN Consult order Sodium Chloride 3 ml 09/12/20 01:21 09/15/20 08:07 0.9 % Sodium Chloride Flush 3 Ml Syringe IVFLUSH 3 ml QSHIFT [facility] Administration Tiotropium [place] 1 puff 09/12/20 08:00 09/15/20 07:55 Tiotropium [place] 18 Mcg Cap.W.Dev INHALE Not Given RDAILY [facility] Vitamin D 25 mcg 09/12/20 09:00 09/15/20 08:43 Cholecalciferol (Vitamin D3) 25 Mcg Tablet PO Not Given DAILY [facility] Home Medications Medication Instructions Recorded Confirmed Type albuterol sulfate 90 mcg/actuation 1 inh INHALATION Q4H PRN 06/16/20 09/11/20 History aerosol inhaler amlodipine 5 mg tablet 5 mg PO DAILY 06/16/20 09/11/20 History cholecalciferol (vitamin D3) 25 25 mcg PO DAILY 06/16/20 09/11/20 History mcg (1,000 unit) tablet docusate sodium 100 mg capsule 100 mg PO BEDTIME PRN 06/16/20 09/11/20 History dronedarone 400 mg tablet 400 mg PO BID 06/16/20 09/11/20 History ferrous sulfate 325 mg (65 mg 325 mg PO DAILY 06/16/20 09/11/20 History iron) tablet fluticasone propionate 50 1 spray INTRANASAL DAILY 06/16/20 09/11/20 History mcg/actuation nasal spray,suspension folic acid 1 mg tablet 1 mg PO DAILY 06/16/20 09/11/20 History levothyroxine 100 mcg tablet 100 mcg PO DAILY@62906/16/20 09/11/20 History metoprolol succinate 100 mg 100 mg PO DAILY 06/16/20 09/11/20 History tablet,extended release 24 hr omeprazole 20 mg capsule,delayed 20 mg PO DAILY@62906/16/20 09/11/20 History release rosuvastatin 20 mg tablet 20 mg PO BEDTIME 06/16/20 09/11/20 History tiotropium bromide 18 mcg capsule 1 cap INHALATION DAILY 06/16/20 09/11/20 History with inhalation device warfarin 3 mg tablet 3 mg PO SUTUTHFRSA@1800 06/16/20 09/11/20 History warfarin 4 mg tablet 4 mg PO MOWE@1800 06/16/20 09/11/20 History albuterol sulfate 2.5 mg INHALATION Q4H PRN 09/11/20 09/11/20 History Allergies Allergy/AdvReac Type Severity Reaction Status Date / Time lisinopril [LISINOPRIL] Allergy Severe ANGIOEDEMA Verified 06/16/20 10:54 quinine [Quinine] Allergy Unknown HIVES Verified 06/16/20 10:54 Physical Exam Vital signs: Vital Signs Temp 97.1 F 09/15/20 11:26 Pulse 78 09/15/20 11:26 Resp 18 09/15/20 11:26 BP 125/59 L 09/15/20 11:26 Pulse Ox 97 09/15/20 11:26 Intake & Output 09/14/20 09/15/20 09/15/20 18:59 06:59 18:59 Intake Total 510 / 990 480 / 990 1180 / 1180 Output Total 200 / 875 675 / 875 400 / 400 Balance 310 / 115 -195 / 115 780 / 780 Urine Output (Average ml/kg/hr) 0.68 2.30 0.64 Intake: Intake, Oral Amount 510 / 990 480 / 990 280 / 280 Intake, IV Amount 900 / 900 Lactated Ringers 1,000 ml @ 50 900 / 900 mls/hr IVCONT .Q20H [facility] Rx#: [id number] Output: Output, Urine Amount 200 / 875 675 / 875 400 / 400 Other: NPO Yes Breakfast % Eaten 100% Lunch % Eaten 100% Urine Urinal Urinal Bathroom Urine Color Yellow Yellow Weight 51.71 kg Weight 51.71 kg Narrative: Elderly male, hard of hearing, resting comfortably in bed. - Constitutional Present: no acute distress, cooperative - Routine HEENT Exam Head: Present: normal inspection Eye: Present: PERRL - Routine Neck Exam Present: supple. Absent: lymphadenopathy - Routine Respiratory Exam Absent: respiratory distress - Routine Cardiovascular Exam Cardiovascular: Present: S1, S2 - Routine Abdominal Exam Present: soft. Absent: mass - Routine Extremities Exam Present: pulses intact. Absent: calf tenderness - Routine Skin Exam Present: intact. Absent: cyanosis - Routine Neurological Exam Present: alert, oriented X3 Hem/Onc Consult Result - Labs CBC & Chem 7: 09/16/20 06:02 09/16/20 06:02 Labs: Short CBC 09/15/20 Range/Units 05:52 WBC 9.1 (4.8-10.8) X10*3/uL Hgb 10.4 L (14.0-18.0) g/dl Hct 32.6 L (42-52) % Plt Count 306 (160-400) X10*3/uL Assessment and Plan (1) Esophageal mass Status: Acute 1. This is a 79-year-old male admitted for dysphagia and anemia secondary to GI bleed. EGD showed polypoidal mass with stricture at 24 cm. a Biopsy was done, pathology is pending. CT chest with contrast shows bnormal wall thickening of the mid thoracic esophagus, infiltration of the adjacent fat and mediastinal lymph nodes. Interval increase in density in the 5 mm right lower lobe nodule and new bilateral upper lobe scarring or subsegmental atel ectasis and abnormal parenchymal density in the right upper lobe compared to April 2018 CTA. If diagnosis confirms esophageal cancer, further staging with PET-CT or CT abdomen and bone scan to be performed. Depending on stage and pathology, further recommendations for treatment will be made. 2. Iron deficiency anemia secondary to GI blood losses. He has responded to blood transfusion. Parenteral iron therapy can be administered if necessary. I thank you for this consultation.
--- NOTE | 2020-09-15 16:52 | HO.PM.IMPN ---
Subjective Subjective Date of Service: 09/15/20 Interval History: The patient was seen and evaluated this morning Laying in bed, feels comfortable, very difficult to hear but feels overall comfortable EGD done this morning showing mass in the esophagus suspicious for cancer Denies any fever, chills or shortness of breath No reported other overnight events. Systemic review: No fever, chills or weakness No chest pain, palpitation No shortness of breath or coughing No abdominal pain, nausea or vomiting No any rash or wounds Physical Exam Vital Signs: Vital Signs: Last Vital Signs Temp 97.7 F 09/15/20 15:41 Pulse 84 09/15/20 15:41 Resp 18 09/15/20 15:41 BP 125/68 09/15/20 15:41 Pulse Ox 93 09/15/20 15:41 Body Mass Index 18.3 Const: Other: Constitutional : Alert, oriented, not in distress Neck : Normal inspection, Supple Cardiovascular : RRR, S1 S2, no lower extremity edema Respiratory : Good bilateral air entry, no crackles, wheezes or rhonchi Gastrointestinal: soft, lax, Normal bowel sounds, Non tender Skin : Warm/Dry, No rash Neurological : Alert & oriented x3, No focal deficit Objective Data Current Medications Generic Name Dose Route Start Last Admin Trade Name Freq PRN Reason Stop Dose Admin Acetaminophen 650 mg 09/12/20 01:21 09/12/20 12:09 Acetaminophen 325 Mg Tablet PO 650 mg Q6H PRN Administration Pain, Mild (Pain Scale 1-3) Albuterol Sulfate 2.5 mg 09/12/20 01:21 09/12/20 18:43 Albuterol Sulfate (0.083%) 2.5 Mg/3 Ml Vial.Neb INHALE 2.5 mg Q4H PRN Administration Respiratory Distress Albuterol Sulfate 1 puff 09/12/20 01:21 Albuterol Sulfate 90 Mcg 8 Gm Inhaler INHALE Q4H PRN Shortness Of Breath Atorvastatin Calcium 80 mg 09/12/20 21:00 09/14/20 20:35 Atorvastatin Calcium 80 Mg Tablet PO 80 mg BEDTIME [facility]INE Administration Docusate Sodium 100 mg 09/12/20 01:21 Docusate Sodium 100 Mg Capsule PO BEDTIME PRN Constipation Dronedarone 400 mg 09/12/20 09:00 09/15/20 08:43 Dronedarone Hcl 400 Mg Tablet PO Not Given BID [facility] Fluticasone Propionate 1 spray 09/12/20 09:00 09/15/20 08:43 Fluticasone Propionate Nasal 16 Gm [place] NOSTRIL-B Not Given DAILY [facility] Fluticasone/Vilanterol 1 puff 09/12/20 08:00 09/15/20 07:56 Fluticasone/Vilanterol 200/25 Blst.W.Dev INHALE Not Given RDAILY [facility] Folic Acid 1 mg 09/12/20 09:00 09/15/20 08:43 Folic Acid 1 Mg Tablet PO Not Given DAILY [facility] Lactated Ringer's 1,000 mls @ 50 mls/hr 09/15/20 09:45 09/15/20 11:05 Lr IVCONT Infused .Q20H [facility] Infusion Levothyroxine Sodium 100 mcg 09/12/20 06:30 09/15/20 05:21 Levothyroxine Sodium 100 Mcg Tablet PO 100 mcg DAILY@0630 [facility] Administration Metoprolol Succinate 100 mg 09/12/20 09:00 09/15/20 08:43 Metoprolol Succinate Er 100 Mg Tab.Er.24h PO Not Given DAILY [facility] Protocol Omeprazole 20 mg 09/12/20 06:30 09/15/20 05:21 Omeprazole 20 Mg Capsule.Dr PO 20 mg DAILY@0630 [facility] Administration Ondansetron HCl 4 mg 09/12/20 01:21 Ondansetron Hcl 4 Mg/2 Ml Vial IVPUSH Q8H PRN Nausea and Vomiting Oxycodone HCl 2.5 mg 09/12/20 07:51 09/14/20 20:43 Oxycodone Hcl Immed Release 5 Mg Tablet PO 2.5 mg Q4H PRN Administration Pain, Severe (Pain Scale 7-10) Pharmacy Consult 1 each 09/11/20 12:23 Consult Rx Perform Med Rec MISCELLANE ONCE PRN Consult order Sodium Chloride 3 ml 09/12/20 01:21 09/15/20 08:07 0.9 % Sodium Chloride Flush 3 Ml Syringe IVFLUSH 3 ml QSHIFT [facility] Administration Tiotropium [place] 1 puff 09/12/20 08:00 09/15/20 07:55 Tiotropium [place] 18 Mcg Cap.W.Dev INHALE Not Given RDAILY [facility] Vitamin D 25 mcg 09/12/20 09:00 09/15/20 08:43 Cholecalciferol (Vitamin D3) 25 Mcg Tablet PO Not Given DAILY [facility] Labs CBC & Chem 7: 09/15/20 05:52 09/13/20 06:05 Assessment and Plan (1) Atypical chest pain: Status: Acute (2) Normocytic anemia: Status: Acute (3) Elevated INR: Status: Acute (4) Rib fracture: Status: Acute (5) Hematuria: Status: Acute (6) Dysphagia: Status: Acute Assessment and Plan: 79-year-old male with an extensive past medical history as mentioned above presents to the hospital with right-sided chest pain Esophageal mass Barium swallow showed Moderate narrowing and irregularity mucosa mid esophagus suspicious for underlying lesion or stricture Found on EGD this morning Extent for about 6 cm long in the esophagus wall with stricture formation Biopsies taken Chest CT scan done showing abnormal wall thickening of the midthoracic esophagus with infiltration of the mediastinal lymph nodes To get Oncology evaluation Rib fractures supportive measures with Tylenol for pain BUSINESS SERVICES TECH evaluated the patient, can be on modified diet Acute blood loss anemia, GIB Hemoglobin stable around 10 after transfuse 2 units of blood GI input appreciated, follow pathology report Keep NPO after midnight Hematuria Secondary to elevated INR, resolved Pending Urology evaluation Supratherapeutic INR INR of 1.2 after receiving vitamin K Repeated INR within normal AFib hold Coumadin continue metoprolol hypothyroidism continue levothyroxine COPD denies any dyspnea, no excessive sputum production continue home inhalers monitor for exacerbation DVT prophylaxis SCDs
[2020-09-15] MEDS: Docusate Sodium 100 MG CAPSULE PO (19:34)
[2020-09-15] MEDS: oxyCODONE HCl Immed Release 5 MG TABLET 2.5 MG PO ×2 (19:34→23:48)
[2020-09-15] MEDS: Dronedarone HCl 400 MG TABLET PO (19:36)
[2020-09-15] MEDS: Atorvastatin Calcium 80 MG TABLET PO (19:37)
[2020-09-16 03:30] VITALS: BP 106/57; PULSE 88; RESP 14; TEMP 36.9
[2020-09-16] MEDS: Omeprazole 20 MG CAPSULE.DR PO (05:24)
[2020-09-16] MEDS: Levothyroxine Sodium 100 MCG TABLET PO (05:24)
[2020-09-16 06:44] LABS: MANUAL DIFF FLAG NO
[2020-09-16 06:49] LABS: Basophils Absolute Auto 0.1 X10*3/uL (0.0-0.2); Basophils Percent Auto 0.7 % (0-2); Eosinophils Absolute Auto 0.2 X10*3/uL (0.0-0.4); Eosinophils Percent Auto 2.3 % (0-4); Hematocrit 33.4 % (42-52); Hemoglobin 10.5 g/dl (14.0-18.0); Imm Gran Abs Auto 0.03 X10*3/uL (0.00-0.03); Imm Gran Pct Auto 0.4 % (0.0-0.4); Lymphocytes Absolute Auto 0.8 X10*3/uL (1.2-4.9); Lymphocytes Percent Auto 10.9 % (20-40); Mean Corpuscular HGB Conc 31.4 g/dl (31.0-36.0); Mean Corpuscular Hemoglobin 29.8 pg (27.0-33.0); Mean Corpuscular Volume 94.9 fL (80-98); Mean Platelet Volume 8.8 fL (9.4-12.4); Monocytes Absolute Auto 0.8 X10*3/uL (0.1-1.2); Monocytes Percent Auto 11.4 % (2-11); Neutrophils Absolute Auto 5.4 X10*3/uL (2.0-8.3); Neutrophils Percent Auto 74.3 % (45-73); Platelet Count 321 X10*3/uL (160-400); Red Blood Count 3.52 X10*6/uL (4.60-5.80); Red Cell Distribution Width 16.1 % (11.0-16.0); White Blood Count 7.3 X10*3/uL (4.8-10.8)
[2020-09-16 06:58] LABS: INTERNATIONAL NORM RATIO 1.1 (0.9-1.1); Prothrombin Time 12.7 SEC (10.8-13.0)
[2020-09-16 07:20] LABS: Anion Gap 11 (12-20); Blood Urea Nitrogen 10 mg/dL (9-16); Calcium 8.1 mg/dL (8.4-10.2); Carbon Dioxide 26 mmol/L (22-29); Chloride 107 mmol/L (96-108); Creatinine Clr Calc Pharmacy 42.9; Estimated Glomerular Filt Rate > 60; Glucose Random 83 mg/dL (60-115); Potassium 3.9 mmol/L (3.3-5.1); Sodium 140 mmol/L (135-145)
[2020-09-16] MEDS: Fluticasone/Vilanterol 200/25 BLST.W.DEV 1 PUFF INHALE (07:57)
[2020-09-16 08:00] VITALS: BP 127/67; PULSE 73; PULSE 82; RESP 20; TEMP 36.6; O2SAT 94; O2SAT 95
[2020-09-16 08:48] VITALS: BP 127/67; PULSE 82
[2020-09-16] MEDS: Metoprolol Succinate ER 100 MG TAB.ER.24H PO (08:48)
[2020-09-16] MEDS: Folic Acid 1 MG TABLET PO (08:48)
[2020-09-16] MEDS: Dronedarone HCl 400 MG TABLET PO ×2 (08:48→21:07)
[2020-09-16] MEDS: Cholecalciferol (Vitamin D3) 25 MCG TABLET PO (08:48)
[2020-09-16] MEDS: oxyCODONE HCl Immed Release 5 MG TABLET 2.5 MG PO ×2 (08:52→18:22)
[2020-09-16] MEDS: 0.9 % Sodium Chloride Flush 3 ML SYRINGE IVFLUSH ×4 (08:55→21:07)
[2020-09-16 11:41] VITALS: BP 103/63; PULSE 78; RESP 18; TEMP 36.1; O2SAT 95
[2020-09-16] MEDS: Sodium Ferric Gluconat/Sucrose 125 MG in 0.9 % Sodium Chloride 100 ML 100 MG IV (12:16)
--- NOTE | 2020-09-16 12:34 | MHC.SL.DTX ---
Pre-Treatment Diet: GROUND/MECH (NDD2) THIN LIQUIDS Subjective: Changes made to current diet?: No Dysphasia Diet Status: Downgrade Liquid Consistency and Strategies: Liquid Intake Recommendation: Thin Compensatory Strategies for Safe Swallow: Small Sips Compensatory Strategies for Safe Swallow(b): Sitting Upright (90 deg) Liquids from Cup Small Bites and Sips Alternate Liquids/Solids Solid Food Consistency: Dietary Recommendations: Grnd/Mech Altered (NDD2) Additional Modifications to Solids: Patient prefers softer solids due to pain. Oral Medication Intake: Crushed with Puree Strategies and Precautions to be Taken for Safe Swallow: Compensatory Swallowing Status: Sitting Upright (90 deg) Liquids from Cup Small Bites and Sips Alternate Liquids/Solids Supervision While Eating and/Drinking: Intermittent Supervision Foods to Avoid: Swallowing Recommended Treatments: Level of Impact on: Daily activities: Mild Interpersonal interactions: None Education: None Employment: None Community: None Prognosis for Improvement: Good Recommendation for Speech: Inpatient Speech Therapy Comment: Pt appears to be on appropriate diet consistencies at this time. Skilled dysphagia therapy is no longer warranted at this level of care. Please re-refer if pt's condition changes or if STITCH BONDER MACHINE OPERATOR HELPER can be of further assistance. Frequency/Duration: Date Range for Service Req: Timeline to reassess: Additional Comments: Treatment: Pt was seen this date for a follow up tx session for dysphagia. Pt reported that he was unsatisfied with the food he has been receiving. He does not like the consistency and the taste of the items he has ordered. Pt accepted PO trials for STITCH BONDER MACHINE OPERATOR HELPER this morning. He continues to tolerate thin liquids without difficulty. When given a bite of alexsandra cracker, pt mashed and chewed this consistency for a prolonged period of time, until it was soft enough to swallow. Pt stated that he is able to eat regular food at home and does not understand why he keeps getting ground food. STITCH BONDER MACHINE OPERATOR HELPER described rationale behind recommendation. Pt appears to be on appropriate diet consistencies at this time. Assessment: El Teacher Clinican/Clinical Fellow: Yes: Gabriela Franco M.A., [facility]-STITCH BONDER MACHINE OPERATOR HELPER Supervisory Statement: I have reviewed and agree with the student/clinical fellow's documentation: N/A Speech Language Pathologist: [place] Barrett M.A., [facility]-STITCH BONDER MACHINE OPERATOR HELPER
[2020-09-16 13:44] VITALS: BMI 18.3
--- NOTE | 2020-09-16 13:49 | MHC.CLN ---
PT IS MODERATELY MALNOURISHED PT WITH POOR PO INTAKE WITH SWALLOWING DIFFICULTIES AND MASS FOUND IN ESOPHAGUS PT WITH MILDLY DEPLETED SUBCUTANEOUS FAT AND MUSCLE MASS WITH BMI 18 DIET RX: BLAND CHOPPED-APPROPRIATE SCIENCE INSTRUCTOR REC CHOPPED CONSISTENCY SEE NOTE 09/12 & 09/16 RECOMMEND ADDING ENSURE BID TO INCREASE KCALS SUPPLEMENT PROVIDES 700KCALS, 40G PROTEIN SEE CLINICAL NUTRITION ASSESSMENT
--- NOTE | 2020-09-16 14:28 | HO.POSTANES ---
Post Anesthesia Evaluation Post Anesthesia Evaluation Vital Signs: Vital Signs Temp Pulse Resp BP Pulse Ox 09/16/20 11:41 97.0 F 78 18 103/63 95 09/16/20 08:48 82 127/67 09/16/20 08:00 97.8 F 82 20 127/67 94 09/16/20 03:30 98.5 F 88 14 106/57 L Anesthesia: Monitored Mental Status: Awake Pain Control: Satisfactory Nausea/Vomiting: None Hydration: Adequate Anesthesia-Related Issues: No Anes. Related Issues
[2020-09-16 15:21] VITALS: BP 104/58; PULSE 73; RESP 20; TEMP 36.3; O2SAT 90
--- NOTE | 2020-09-16 16:12 | HO.PM.IMPN ---
Subjective Subjective Date of Service: 09/16/20 Interval History: The patient was seen and evaluated this morning Laying in bed, feels comfortable, very difficult to hear but feels overall comfortable EGD done showed mass in the esophagus suspicious for cancer Denies any fever, chills or shortness of breath No reported other overnight events. Systemic review: No fever, chills or weakness No chest pain, palpitation No shortness of breath or coughing No abdominal pain, nausea or vomiting No any rash or wounds Physical Exam Vital Signs: Vital Signs: Last Vital Signs Temp 97.4 F 09/16/20 15: Pulse 73 09/16/20 15:21 Resp 20 09/16/20 15: BP 104/58 L 09/16/20 15: Pulse Ox 90 L 09/16/20 15: Body Mass Index 18.3 Const: Other: Constitutional : Alert, oriented, not in distress Neck : Normal inspection, Supple Cardiovascular : RRR, S1 S2, no lower extremity edema Respiratory : Good bilateral air entry, no crackles, wheezes or rhonchi Gastrointestinal: soft, lax, Normal bowel sounds, Non tender Skin : Warm/Dry, No rash Neurological : Alert & oriented x3, No focal deficit Objective Data Current Medications Generic Name Dose Route Start Last Admin Trade Name Freq PRN Reason Stop Dose Admin Acetaminophen 650 mg 09/12/20 01:21 09/12/20 12:09 Acetaminophen 325 Mg Tablet PO 650 mg Q6H PRN Administration Pain, Mild (Pain Scale 1-3) Albuterol Sulfate 2.5 mg 09/12/20 01:21 09/12/20 18:43 Albuterol Sulfate (0.083%) 2.5 Mg/3 Ml Vial.Neb INHALE 2.5 mg Q4H PRN Administration Respiratory Distress Albuterol Sulfate 1 puff 09/12/20 01:21 Albuterol Sulfate 90 Mcg 8 Gm Inhaler INHALE Q4H PRN Shortness Of Breath Atorvastatin Calcium 80 mg 09/12/20 21:00 09/15/20 19:37 Atorvastatin Calcium 80 Mg Tablet PO 80 mg BEDTIME [facility]INE Administration Docusate Sodium 100 mg 09/12/20 01:21 09/15/20 19:34 Docusate Sodium 100 Mg Capsule PO 100 mg BEDTIME PRN Administration Constipation Dronedarone 400 mg 09/12/20 09:00 09/16/20 08:48 Dronedarone Hcl 400 Mg Tablet PO 400 mg BID [facility] Administration Ferrous Sulfate 324 mg 09/17/20 09:00 Ferrous Sulfate 324 Mg Tablet. PO DAILY [facility] Fluticasone Propionate 1 spray 09/12/20 09:00 09/16/20 08:59 Fluticasone Propionate Nasal 16 Gm [place] NOSTRIL-B Not Given DAILY [facility] Fluticasone/Vilanterol 1 puff 09/12/20 08:00 09/16/20 07:57 Fluticasone/Vilanterol 200/25 Blst.W.Dev INHALE 1 puff RDAILY [facility] Administration Folic Acid 1 mg 09/12/20 09:00 09/16/20 08:48 Folic Acid 1 Mg Tablet PO 1 mg DAILY [facility] Administration Lactated Ringer's 1,000 mls @ 50 mls/hr 09/15/20 09:45 09/16/20 05:29 Lr IVCONT Not Given .Q20H [facility] Levothyroxine Sodium 100 mcg 09/12/20 06:30 09/16/20 05:24 Levothyroxine Sodium 100 Mcg Tablet PO 100 mcg DAILY@0630 [facility] Administration Metoprolol Succinate 100 mg 09/12/20 09:00 09/16/20 08:48 Metoprolol Succinate Er 100 Mg Tab.Er.24h PO 100 mg DAILY [facility] Administration Protocol Omeprazole 20 mg 09/12/20 06:30 09/16/20 05:24 Omeprazole 20 Mg Capsule. PO 20 mg DAILY@0630 [facility] Administration Ondansetron HCl 4 mg 09/12/20 01:21 Ondansetron Hcl 4 Mg/2 Ml Vial IVPUSH Q8H PRN Nausea and Vomiting Oxycodone HCl 2.5 mg 09/12/20 07:51 09/16/20 08:52 Oxycodone Hcl Immed Release 5 Mg Tablet PO 2.5 mg Q4H PRN Administration Pain, Severe (Pain Scale 7-10) Pharmacy Consult 1 each 09/11/20 12:23 Consult Rx Perform Med Rec MISCELLANE ONCE PRN Consult order Sodium Chloride 3 ml 09/12/20 01:21 09/16/20 08:55 0.9 % Sodium Chloride Flush 3 Ml Syringe IVFLUSH 3 ml QSHIFT [facility] Administration Tiotropium [place] 1 puff 09/12/20 08:00 09/16/20 07:57 Tiotropium [place] 18 Mcg Cap.W.Dev INHALE 1 puff RDAILY [facility] Administration Vitamin D 25 mcg 09/12/20 09:00 09/16/20 08:48 Cholecalciferol (Vitamin D3) 25 Mcg Tablet PO 25 mcg DAILY [facility] Administration Labs CBC & Chem 7: 09/16/20 06:02 09/16/20 06:02 Assessment and Plan (1) Atypical chest pain: Status: Acute (2) Normocytic anemia: Status: Acute (3) Elevated INR: Status: Acute (4) Rib fracture: Status: Acute (5) Hematuria: Status: Acute (6) Dysphagia: Status: Acute Assessment and Plan: 79-year-old male with an extensive past medical history as mentioned above presents to the hospital with right-sided chest pain Esophageal mass Barium swallow showed Moderate narrowing and irregularity mucosa mid esophagus suspicious for underlying lesion or stricture Found on EGD Extent for about 6 cm long in the esophagus wall with stricture formation Biopsies taken Chest CT scan done showing abnormal wall thickening of the midthoracic esophagus with infiltration of the mediastinal lymph nodes Oncology input appreciated, to follow-up as outpatient when pathology report available for further evaluation Rib fractures supportive measures with Tylenol for pain [employer]ES [employer]ODUCTION MANAGER evaluated the patient, can be on modified diet Acute blood loss anemia, GIB Hemoglobin stable around 10 after transfuse 2 units of blood GI input appreciated, follow pathology report Follow CBC Hematuria Secondary to elevated INR, resolved Pending Urology evaluation Supratherapeutic INR INR of 1 after receiving vitamin K Repeated INR within normal To discontinue warfarin at time of discharge and to hold it and for further evaluation done by Dr. Brian Clarke hold Coumadin continue metoprolol hypothyroidism continue levothyroxine COPD denies any dyspnea, no excessive sputum production continue home inhalers monitor for exacerbation DVT prophylaxis SCDs Dispo, patient ready to DC but family could not pick him up today as no one available at home, plan to DC tomorrow morning.
--- NOTE | 2020-09-16 16:51 | P.CNUR_ITS ---
History of Present Illness Consult details Consult date: 09/16/20 Narrative: Alec is a pleasant [place] male. Extensive medical history includes anticoagulation had hematuria at presentation subsequent resolution prior prostate cancer no imaging for hematuria given risk factors including smoking would suggest CT urogram and cytology would plan for outpatient cystoscopy PMF Past Medical History Medical History Allergic rhinitis Atrial fibrillation CAD (coronary artery disease) CKD (chronic kidney disease) COPD (chronic obstructive pulmonary disease) GERD (gastroesophageal reflux disease) History of GI bleed HLD (hyperlipidemia) Hypertension Hypothyroidism Prostate cancer Smoker Surgical History Surgical History H/O prostatectomy Social History Social History Household Members: Family Household Members Other:: son and daughter in law Housing: House Do you presently have visiting nurse or other home services: No Alcohol intake: unknown Patient Tobacco Use Status: Current everyday Tobacco user Tobacco use type: Cigarette Cigarette Packs Per Day: 0.5 Smoked in Last 30 Days: Yes Patient Interested in Nicotine Replacement: No Second Hand Smoke Exposure: No Use of substances other than those prescribed or required for medical reasons: No Currently Displaying Signs/Symptoms of Drug Intoxication Withdrawal: No Any prior treatment program specific to substance use: No Have you been hit, kicked, punched, or otherwise hurt by someone within the past year? If so, by whom?: No Do you feel safe in your current relationship?: No Current Relationship Is there a partner from a previous relationship who is making you feel unsafe now?: No Are you made to feel afraid or neglected: No Are you DNR?: Yes Advance Directives: Yes Advance Directives Information Provided: Yes Advance Directives on File: No Advance Directives Date on File: 09/12/20 Do you have thoughts of harming others: None Do you have a plan to hurt others: No Plan Recently lost weight without trying: No Eating poorly because of decreased appetite: Yes Nutrition Risks: Difficulty swallowing Poor oral hygiene: Yes service: Yes Current occupational status: disabled Meds Allergies Allergy/AdvReac Type Severity Reaction Status Date / Time lisinopril [LISINOPRIL] Allergy Severe ANGIOEDEMA Verified 06/16/20 10:54 quinine [Quinine] Allergy Unknown HIVES Verified 06/16/20 10:54 Active Medications: Current Medications Generic Name Dose Route Start Last Admin Trade Name Freq PRN Reason Stop Dose Admin Acetaminophen 650 mg 09/12/20 01:21 09/12/20 12:09 Acetaminophen 325 Mg Tablet PO 650 mg Q6H PRN Administration Pain, Mild (Pain Scale 1-3) Albuterol Sulfate 2.5 mg 09/12/20 01:21 09/12/20 18:43 Albuterol Sulfate (0.083%) 2.5 Mg/3 Ml Vial.Neb INHALE 2.5 mg Q4H PRN Administration Respiratory Distress Albuterol Sulfate 1 puff 09/12/20 01:21 Albuterol Sulfate 90 Mcg 8 Gm Inhaler INHALE Q4H PRN Shortness Of Breath Atorvastatin Calcium 80 mg 09/12/20 21:00 09/15/20 19:37 Atorvastatin Calcium 80 Mg Tablet PO 80 mg BEDTIME [facility] Administration Docusate Sodium 100 mg 09/12/20 01:21 09/15/20 19:34 Docusate Sodium 100 Mg Capsule PO 100 mg BEDTIME PRN Administration Constipation Dronedarone 400 mg 09/12/20 09:00 09/16/20 08:48 Dronedarone Hcl 400 Mg Tablet PO 400 mg BID [facility] Administration Ferrous Sulfate 324 mg 09/17/20 09:00 Ferrous Sulfate 324 Mg Tablet.Dr PO DAILY [facility] Fluticasone Propionate 1 spray 09/12/20 09:00 09/16/20 08:59 Fluticasone Propionate Nasal 16 Gm [place] NOSTRIL-B Not Given DAILY [facility] Fluticasone/Vilanterol 1 puff 09/12/20 08:00 09/16/20 07:57 Fluticasone/Vilanterol 200/25 Blst.W.Dev INHALE 1 puff RDAILY [facility] Administration Folic Acid 1 mg 09/12/20 09:00 09/16/20 08:48 Folic Acid 1 Mg Tablet PO 1 mg DAILY [facility] Administration Lactated Ringer's 1,000 mls @ 50 mls/hr 09/15/20 09:45 09/16/20 05:29 Lr IVCONT Not Given .Q20H [facility] Levothyroxine Sodium 100 mcg 09/12/20 06:30 09/16/20 05:24 Levothyroxine Sodium 100 Mcg Tablet PO 100 mcg DAILY@0630 [facility] Administration Metoprolol Succinate 100 mg 09/12/20 09:00 09/16/20 08:48 Metoprolol Succinate Er 100 Mg Tab.Er.24h PO 100 mg DAILY [facility] Administration Protocol Omeprazole 20 mg 09/12/20 06:30 09/16/20 05:24 Omeprazole 20 Mg Capsule.Dr PO 20 mg DAILY@0630 [facility] Administration Ondansetron HCl 4 mg 09/12/20 01:21 Ondansetron Hcl 4 Mg/2 Ml Vial IVPUSH Q8H PRN Nausea and Vomiting Oxycodone HCl 2.5 mg 09/12/20 07:51 09/16/20 08:52 Oxycodone Hcl Immed Release 5 Mg Tablet PO 2.5 mg Q4H PRN Administration Pain, Severe (Pain Scale 7-10) Pharmacy Consult 1 each 09/11/20 12:23 Consult Rx Perform Med Rec MISCELLANE ONCE PRN Consult order Sodium Chloride 3 ml 09/12/20 01:21 09/16/20 08:55 0.9 % Sodium Chloride Flush 3 Ml Syringe IVFLUSH 3 ml QSHIFT [facility] Administration Tiotropium [place] 1 puff 09/12/20 08:00 09/16/20 07:57 Tiotropium [place] 18 Mcg Cap.W.Dev INHALE 1 puff RDAILY [facility] Administration Vitamin D 25 mcg 09/12/20 09:00 09/16/20 08:48 Cholecalciferol (Vitamin D3) 25 Mcg Tablet PO 25 mcg DAILY [facility] Administration Home Medications Medication Instructions Recorded Confirmed Last Taken Type albuterol sulfate 90 mcg/actuation 1 inh INHALATION Q4H PRN 06/16/20 09/11/20 Unknown History aerosol inhaler amlodipine 5 mg tablet 5 mg PO DAILY 06/16/20 09/11/20 09/11/20 History cholecalciferol (vitamin D3) 25 25 mcg PO DAILY 06/16/20 09/11/20 09/11/20 History mcg (1,000 unit) tablet docusate sodium 100 mg capsule 100 mg PO BEDTIME PRN 06/16/20 09/11/20 Unknown History dronedarone 400 mg tablet 400 mg PO BID 06/16/20 09/11/20 09/11/20 History ferrous sulfate 325 mg (65 mg 325 mg PO DAILY 06/16/20 09/11/20 Unknown History iron) tablet fluticasone propionate 50 1 spray INTRANASAL DAILY 06/16/20 09/11/20 Unknown History mcg/actuation nasal spray,suspension folic acid 1 mg tablet 1 mg PO DAILY 06/16/20 09/11/20 09/11/20 History levothyroxine 100 mcg tablet 100 mcg PO DAILY@62906/16/20 09/11/20 Unknown History metoprolol succinate 100 mg 100 mg PO DAILY 06/16/20 09/11/20 09/11/20 History tablet,extended release 24 hr omeprazole 20 mg capsule,delayed 20 mg PO DAILY@62906/16/20 09/11/20 09/11/20 History release rosuvastatin 20 mg tablet 20 mg PO BEDTIME 06/16/20 09/11/20 09/10/20 History tiotropium bromide 18 mcg capsule 1 cap INHALATION DAILY 06/16/20 09/11/20 09/11/20 History with inhalation device warfarin 3 mg tablet 3 mg PO SUTUTHFRSA@1800 06/16/20 09/11/20 Unknown History warfarin 4 mg tablet 4 mg PO MOWE@1800 06/16/20 09/11/20 Unknown History albuterol sulfate 2.5 mg INHALATION Q4H PRN 09/11/20 09/11/20 Unknown History Physical Exam Vital Signs: Vital Signs: Last Vital Signs Temp 97.4 F 09/16/20 15:21 Pulse 73 09/16/20 15:21 Resp 20 09/16/20 15:21 BP 104/58 L 09/16/20 15:21 Pulse Ox 90 L 09/16/20 15:21 Body Mass Index 18.3 Results Labs Result diagrams: 09/16/20 06:02 09/16/20 06:02 Labs: Abnormal lab results 09/16/20 09/16/20 Range/Units 06:02 06:02 RBC 3.52 L (4.60-5.80) X10*6/uL Hgb 10.5 L (14.0-18.0) g/dl Hct 33.4 L (42-52) % RDW 16.1 H (11.0-16.0) % MPV 8.8 L (9.4-12.4) fL Neut % (Auto) 74.3 H (45-73) % Lymph % (Auto) 10.9 L (20-40) % [place] % (Auto) 11.4 H (2-11) % Lymph # (Auto) 0.8 L (1.2-4.9) X10*3/uL Anion Gap 11 L (12-20) Calcium 8.1 L (8.4-10.2) mg/dL Short CBC 09/16/20 Range/Units 06:02 WBC 7.3 (4.8-10.8) X10*3/uL Hgb 10.5 L (14.0-18.0) g/dl Hct 33.4 L (42-52) % Plt Count 321 (160-400) X10*3/uL BMP 09/16/20 06:02 Sodium 140 Potassium 3.9 Chloride 107 Carbon Dioxide 26 BUN 10 Creatinine 1.02 Calcium 8.1 L Urine 09/11/20 Range/Units 16:21 Urine Color YELLOW Urine Appearance CLEAR Urine pH 6.0 (5.0-8.0) Ur Specific [place] 1.025 (1.005-1.025) Urine Protein 2+ H (NEG-TRACE) MG/DL Urine Glucose (UA) NEG (NEG) MG/DL All other labs normal. Assessment and Plan (1) Hematuria: Status: Acute imaging, cytology, outpatient cystoscopy Procedures Date of Service Date of Service: 09/16/20
[2020-09-16 19:15] VITALS: BP 116/57; PULSE 60; RESP 20; TEMP 36.6; O2SAT 91
[2020-09-16] MEDS: Fluticasone Propionate Nasal 16 GM SPRAY 1 SPRAY NOSTRIL-B (21:07)
[2020-09-16] MEDS: Atorvastatin Calcium 80 MG TABLET PO (21:07)
[2020-09-17] VITALS (9 sets, daily range): BP systolic 101–130; BP diastolic 57–89; PULSE 59–85; RESP 12–20; TEMP 36.4–37.1; O2SAT 94–96
[2020-09-17 06:11] LABS: Basophils Percent Auto 0.4 % (0-2); Eosinophils Absolute Auto 0.2 X10*3/uL (0.0-0.4); Hematocrit 31.2 % (42-52); Hemoglobin 10.1 g/dl (14.0-18.0); Imm Gran Abs Auto 0.02 X10*3/uL (0.00-0.03); Imm Gran Pct Auto 0.3 % (0.0-0.4); Lymphocytes Absolute Auto 0.7 X10*3/uL (1.2-4.9); Lymphocytes Percent Auto 8.9 % (20-40); MANUAL DIFF FLAG SCAN; Mean Corpuscular HGB Conc 32.4 g/dl (31.0-36.0); Mean Corpuscular Hemoglobin 30.3 pg (27.0-33.0); Mean Corpuscular Volume 93.7 fL (80-98); Mean Platelet Volume 9.1 fL (9.4-12.4); Monocytes Absolute Auto 0.8 X10*3/uL (0.1-1.2); Monocytes Percent Auto 10.2 % (2-11); Neutrophils Absolute Auto 5.8 X10*3/uL (2.0-8.3); Neutrophils Percent Auto 77.2 % (45-73); Platelet Count 290 X10*3/uL (160-400); Red Blood Count 3.33 X10*6/uL (4.60-5.80); Red Cell Distribution Width 15.7 % (11.0-16.0); SCAN SMEAR FLAG 1; White Blood Count 7.6 X10*3/uL (4.8-10.8)
[2020-09-17 06:13] LABS: Urine Cytology See Pathology rpt
[2020-09-17 06:37] LABS: Anion Gap 10 (12-20); Blood Urea Nitrogen 8 mg/dL (9-16); Calcium 7.8 mg/dL (8.4-10.2); Carbon Dioxide 24 mmol/L (22-29); Chloride 107 mmol/L (96-108); Creatinine Clr Calc Pharmacy 53.4; Estimated Glomerular Filt Rate > 60; Glucose Random 84 mg/dL (60-115); Potassium 3.4 mmol/L (3.3-5.1); Sodium 138 mmol/L (135-145)
[2020-09-17] MEDS: Levothyroxine Sodium 100 MCG TABLET PO (07:17)
[2020-09-17 07:23] LABS: SLIDE REVIEW VERIFIED
[2020-09-17] MEDS: Fluticasone/Vilanterol 200/25 BLST.W.DEV 1 PUFF INHALE (07:57)
[2020-09-17 08:45] LABS: Lactate Dehydrogenase 163 U/L (118-273)
[2020-09-17] MEDS: 0.9 % Sodium Chloride Flush 3 ML SYRINGE IVFLUSH ×3 (09:54→21:24)
--- NOTE | 2020-09-17 11:52 | MHC.SLORD ---
Speech Language Pathology Order Status: RECREATION DIRECTOR attempted to see pt this morning for PO trials. Per RN, pt is NPO for a test.
[2020-09-17] MEDS: Metoprolol Succinate ER 100 MG TAB.ER.24H PO (12:18)
[2020-09-17] MEDS: oxyCODONE HCl Immed Release 5 MG TABLET 2.5 MG PO ×2 (12:18→22:38)
[2020-09-17] MEDS: Folic Acid 1 MG TABLET PO (12:19)
[2020-09-17] MEDS: Cholecalciferol (Vitamin D3) 25 MCG TABLET PO (12:19)
[2020-09-17] MEDS: Dronedarone HCl 400 MG TABLET PO ×2 (12:19→21:24)
[2020-09-17] MEDS: Ferrous Sulfate 324 MG TABLET.DR PO (12:19)
--- NOTE | 2020-09-17 12:32 | P.CDIC_ITS ---
CDI Concurrent Query Service Date: 09/17/20 Documentation Clarification: Please clarify if you are treating a proba ble/suspected/likely or confirmed: Malnutrition, mild, moderate or severe Underweight Please specify if known Provider Response: Malnutrition PLEASE DO NOT DELETE/MODIFY EXISTING CONTENT Additional information is needed in order to code to the highest accuracy and appropriate Severity of Illness (SOI). Please clarify the information noted below in your progress notes and discharge summary. Risk Factors/Clinical Indicators/Treatments Nutrition notes pt to be moderately malnourished with BMI 18.3 Poor PO intake w swallowing difficulties. Mildly depleted subcutaneous fat and muscle mass. Adding Ensure BID. CDS: Theresa Henning Ext. [phone] Contact Number: Ext. [phone] Please Review the information above and exercise your independent professional judgment in responding to the query. If you concur, pleas document in the PROGRESS NOTES and DISCHARGE SUMMARY. If you do not agree with the query, please document in the query above. THIS QUERY IS PART OF THE PERMANENT MEDICAL RECORD
--- NOTE | 2020-09-17 12:45 | PM.DS ---
DS: Providers Provider Date of admission: 09/11/20 21:58 Primary care physician: Unknown Physician Consults: 09/12/20 01:21 Consult to Gastroenterology Routine Consulting Provider: Bernardo Mcgovern Reason for consultation: anemia, melena Has provider been notified: No Consult to Urology Routine Consulting Provider: Marvin Lilly Reason for consultation: hematuria Has provider been notified: No 09/15/20 10:56 Consult to Hematology / Oncology Routine Consulting Provider: Jackie Torres Reason for consultation: Esophageal mass w stricture for your eval. 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 DS: Medications Discharge Medications Home Medications: Home Medications Medication Instructions Recorded Confirmed albuterol sulfate 90 mcg/actuation 1 inh INHALATION Q4H PRN 06/16/20 09/11/20 aerosol inhaler cholecalciferol (vitamin D3) 25 25 mcg PO DAILY 06/16/20 09/11/20 mcg (1,000 unit) tablet docusate sodium 100 mg capsule 100 mg PO BEDTIME PRN 06/16/20 09/11/20 dronedarone 400 mg tablet 400 mg PO BID 06/16/20 09/11/20 ferrous sulfate 325 mg (65 mg 325 mg PO DAILY 06/16/20 09/11/20 iron) tablet fluticasone propionate 50 1 spray INTRANASAL DAILY 06/16/20 09/11/20 mcg/actuation nasal spray,suspension folic acid 1 mg tablet 1 mg PO DAILY 06/16/20 09/11/20 levothyroxine 100 mcg tablet 100 mcg PO DAILY@62906/16/20 09/11/20 metoprolol succinate 100 mg 100 mg PO DAILY 06/16/20 09/11/20 tablet,extended release 24 hr omeprazole 20 mg capsule,delayed 20 mg PO DAILY@30 06/16/20 09/11/20 release rosuvastatin 20 mg tablet 20 mg PO BEDTIME 06/16/20 09/11/20 tiotropium bromide 18 mcg capsule 1 cap INHALATION DAILY 06/16/20 09/11/20 with inhalation device albuterol sulfate 2.5 mg INHALATION Q4H PRN 09/11/20 09/11/20 Previous Rx's Medication Instructions Recorded fluticasone furoate 200 1 ea PO DAILY #60 cap 08/13/20 mcg-vilanterol 25 mcg/dose inhalation powder ferrous sulfate 324 mg PO DAILY #30 tab 09/17/20 oxycodone 2.5 mg PO Q4H PRN #10 tab 09/17/20 DS: Summary Hospital Course Hospital Course: Patient was admitted for right-sided chest pain, found to have anemia, elevated INR, dysphagia, moderate malnutrition, acute kidney injury. Patient underwent EGD which showed suspicious mass, pathology showed squamous cell esophageal cancer. Patient is able to tolerate modified diet, he will follow-up with Oncology for PET scan and staging to determine treatment plan. For his anemia he was given 2 units of packed red blood cells and hemoglobin improved and remained stable at around 10. patient was noted to have hematuria with elevated INR, his Coumadin has been held and will continue be held while further workup for his esophageal cancer is being undertaken. He was seen by Urology who recommended CT urogram which will be done as outpatient. Patient's renal function returned to normal. Time Spent with Patient Time attestation: Total time spent providing and/or coordinating discharge services: Discharge coordination time: Greater than 30 minutes Quality: Stroke Does the patient have a stroke diagnosis?: No Physical Exam Vital Signs: Vital Signs: Last Vital Signs Temp 97.8 F 09/17/20 12:12 Pulse 80 09/17/20 12:18 Resp 16 09/17/20 12:12 BP 114/64 09/17/20 12:18 Pulse Ox 96 09/17/20 12:12 Body Mass Index 18.3 General: AO X 3, no acute distress, ill appearing Resp: CTA bilateral CVS: S1,S2,RRR GI: soft, non tender, non distended Neuro: motor grossly intact Psych: appropriate affect DS: Data Data Completed and Pending Completed studies during hospitalization [Text1]: Pending at discharge 09/15/20 10:12 Surgical [PTH] Routine Labs on day of discharge: Laboratory Results - last 24 hr 09/17/20 09/17/20 05:00 05:00 WBC 7.6 RBC 3.33 L Hgb 10.1 L Hct 31.2 L MCV 93.7 MCH 30.3 MCHC 32.4 RDW 15.7 Plt Count 290 MPV 9.1 L Immature Gran % (Auto) 0.3 Neut % (Auto) 77.2 H Lymph % (Auto) 8.9 L [place] % (Auto) 10.2 Eos % (Auto) 3.0 Baso % (Auto) 0.4 Lymph # (Auto) 0.7 L [place] # (Auto) 0.8 Eos # (Auto) 0.2 Baso # (Auto) 0.0 Abs Immat Gran (auto) 0.02 Absolute Neuts (auto) 5.8 Absolute Nucleated RBC 0.000 Nucleated RBC % (auto) 0.0 Smear Tech's Comments VERIFIED Sodium 138 Potassium 3.4 Chloride 107 Carbon Dioxide 24 Anion Gap 10 L BUN 8 L Creatinine 0.82 Estim Creat Clear Calc 53.4 Estimated GFR > 60 Random Glucose 84 Calcium 7.8 L Lactate Dehydrogenase 163 Carcinoembryonic Ag 5.90 Discharge Plan Discharge Patient Disposition: Home, Self-Care Discharge Diagnosis: likely esophogeal ca Referrals: Bernardo Mcgovern MD [Physician] - 1 Week Physician,Unknown [Primary Care Provider] - 1 Week Discharge Medications: New ferrous sulfate 324 mg (65 mg iron) Tablet,Delayed Release (Dr/Ec) 324 mg PO DAILY Qty: 30 RF: 0 oxycodone 5 mg Tablet 2.5 mg PO Q4H PRN (Reason: Pain, Severe (Pain Scale 7-10)) Qty: 10 RF: 0 Continued fluticasone furoate-vilanterol [Breo Ellipta] 200-25 mcg/dose blister with device 1 ea PO DAILY Qty: 60 RF: 3 albuterol sulfate 2.5 mg /3 mL (0.083 %) Solution For Nebulization 2.5 mg INHALATION Q4H PRN (Reason: Respiratory Distress) RF: 0 dronedarone 400 mg tablet 400 mg PO BID RF: 0 tiotropium bromide 18 mcg capsule, w/inhalation device 1 cap inhalation DAILY RF: 0 rosuvastatin 20 mg tablet 20 mg PO BEDTIME RF: 0 fluticasone propionate 50 mcg/actuation spray,suspension 1 spray intranasal DAILY RF: 0 albuterol sulfate 90 mcg/actuation HFA aerosol inhaler 1 inh inhalation Q4H PRN (Reason: Shortness Of Breath) RF: 0 omeprazole 20 mg capsule,delayed release(DR/EC) 20 mg PO DAILY@0630 RF: 0 levothyroxine 100 mcg tablet 100 mcg PO DAILY@0630 RF: 0 metoprolol succinate 100 mg tablet extended release 24 hr 100 mg PO DAILY RF: 0 folic acid 1 mg tablet 1 mg PO DAILY RF: 0 cholecalciferol (vitamin D3) 25 mcg (1,000 unit) tablet 25 mcg PO DAILY RF: 0 docusate sodium 100 mg capsule 100 mg PO BEDTIME PRN (Reason: Constipation) RF: 0 ferrous sulfate 325 mg (65 mg iron) tablet 325 mg PO DAILY RF: 0 Discontinued amlodipine 5 mg tablet 5 mg PO DAILY RF: 0 warfarin 3 mg tablet 3 mg PO SUTUTH@1800 RF: 0 warfarin 4 mg tablet 4 mg PO MOWE@1800 RF: 0 Stand Alone Forms: Patient Portal Discharge page
--- NOTE | 2020-09-17 12:58 | MHC.CM.PN ---
Patient has been medically cleared for dc to home today/no services. Second Imm to be addressed and the original will be given to PATIENT AND A COPY TO BE PLACED ON THE CHART.
--- NOTE | 2020-09-17 13:04 | HO.PM.IMPN ---
Subjective Subjective Date of Service: 09/17/20 Interval History: dysphagia Cardiovascular Cardiovascular: Reports no additional cardiovascular complaints Gastrointestinal Gastrointestinal: Reports no additional gastrointestinal complaints Physical Exam Vital Signs: Vital Signs: Last Vital Signs Temp 97.8 F 09/17/20 12:12 Pulse 80 09/17/20 12:18 Resp 16 09/17/20 12:12 BP 114/64 09/17/20 12:18 Pulse Ox 96 09/17/20 12:12 Body Mass Index 18.3 General: AO X 3, no acute distress Resp: CTA bilateral CVS: S1,S2,RRR GI: soft, non tender, non distended Neuro: motor grossly intact Psych: appropriate affect Objective Data Current Medications Generic Name Dose Route Start Last Admin Trade Name Freq PRN Reason Stop Dose Admin Acetaminophen 650 mg 09/12/20 01:21 09/12/20 12:09 Acetaminophen 325 Mg Tablet PO 650 mg Q6H PRN Administration Pain, Mild (Pain Scale 1-3) Albuterol Sulfate 2.5 mg 09/12/20 01:21 09/12/20 18:43 Albuterol Sulfate (0.083%) 2.5 Mg/3 Ml Vial.Neb INHALE 2.5 mg Q4H PRN Administration Respiratory Distress Albuterol Sulfate 1 puff 09/12/20 01:21 Albuterol Sulfate 90 Mcg 8 Gm Inhaler INHALE Q4H PRN Shortness Of Breath Atorvastatin Calcium 80 mg 09/12/20 21:00 09/16/20 21:07 Atorvastatin Calcium 80 Mg Tablet PO 80 mg BEDTIME RAINE Administration Docusate Sodium 100 mg 09/12/20 01:21 09/15/20 19:34 Docusate Sodium 100 Mg Capsule PO 100 mg BEDTIME PRN Administration Constipation Dronedarone 400 mg 09/12/20 09:00 09/17/20 12:19 Dronedarone Hcl 400 Mg Tablet PO 400 mg BID RAINE Administration Ferrous Sulfate 324 mg 09/17/20 09:00 09/17/20 12:19 Ferrous Sulfate 324 Mg Tablet.Dr PO 324 mg DAILY RAINE Administration Fluticasone Propionate 1 spray 09/12/20 09:00 09/16/20 21:07 Fluticasone Propionate Nasal 16 Gm [place] NOSTRIL-B 1 spray DAILY RAINE Administration Fluticasone/Vilanterol 1 puff 09/12/20 08:00 09/17/20 07:57 Fluticasone/Vilanterol 200/25 Blst.W.Dev INHALE 1 puff RDAILY [facility] Administration Folic Acid 1 mg 09/12/20 09:00 09/17/20 12:19 Folic Acid 1 Mg Tablet PO 1 mg DAILY RAINE Administration Lactated Ringer's 1,000 mls @ 50 mls/hr 09/15/20 09:45 09/16/20 23:52 Lr IVCONT Not Given .Q20H [facility] Levothyroxine Sodium 100 mcg 09/12/20 06:30 09/17/20 07:17 Levothyroxine Sodium 100 Mcg Tablet PO 100 mcg DAILY@0630 [facility] Administration Metoprolol Succinate 100 mg 09/12/20 09:00 09/17/20 12:18 Metoprolol Succinate Er 100 Mg Tab.Er.24h PO 100 mg DAILY [facility] Administration Protocol Omeprazole 20 mg 09/12/20 06:30 09/17/20 07:21 Omeprazole 20 Mg Capsule.Dr PO Not Given DAILY@0630 [facility] Ondansetron HCl 4 mg 09/12/20 01:21 Ondansetron Hcl 4 Mg/2 Ml Vial IVPUSH Q8H PRN Nausea and Vomiting Oxycodone HCl 2.5 mg 09/12/20 07:51 09/17/20 12:18 Oxycodone Hcl Immed Release 5 Mg Tablet PO 2.5 mg Q4H PRN Administration Pain, Severe (Pain Scale 7-10) Pharmacy Consult 1 each 09/11/20 12:23 Consult Rx Perform Med Rec MISCELLANE ONCE PRN Consult order Sodium Chloride 3 ml 09/12/20 01:21 09/17/20 09:54 0.9 % Sodium Chloride Flush 3 Ml Syringe IVFLUSH 3 ml QSHIFT [facility] Administration Tiotropium Chunky 1 puff 09/12/20 08:00 09/17/20 07:57 Tiotropium Chunky 18 Mcg Cap.W.Dev INHALE 1 puff RDAILY [facility] Administration Vitamin D 25 mcg 09/12/20 09:00 09/17/20 12:19 Cholecalciferol (Vitamin D3) 25 Mcg Tablet PO 25 mcg DAILY [facility] Administration Labs CBC & Chem 7: 09/17/20 05:00 09/17/20 05:00 Assessment and Plan (1) Atypical chest pain: Status: Acute (2) Normocytic anemia: Status: Acute (3) Elevated INR: Status: Acute (4) Rib fracture: Status: Acute (5) Hematuria: Status: Acute (6) Dysphagia: Status: Acute Assessment and Plan: 79-year-old male with an extensive past medical history as mentioned above presents to the hospital with right-sided chest pain Dysphagia Esophageal mass Barium swallow showed Moderate narrowing and irregularity mucosa mid esophagus suspicious for underlying lesion or stricture Found on EGD Extent for about 6 cm long in the esophagus wall with stricture formation 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 Chest CT scan done showing abnormal wall thickening of the midthoracic esophagus with infiltration of the mediastinal lymph nodes plan for outpatient PET scan currently with odynophagia, inability to tolerate p.o., will give Magic mouthwash and monitor PNEUMATIC JACKETER evaluated the patient, can be on modified diet Rib fractures supportive measures with Tylenol for pain Acute blood loss anemia, GIB Hemoglobin stable around 10 after transfuse 2 units of blood GI input appreciated Hematuria Secondary to elevated INR, resolved outpaitnet CT urogram Supratherapeutic INR INR of 1 after receiving vitamin K Repeated INR within normal To discontinue warfarin at time of discharge and to hold it and for further evaluation done by Dr. Brian Clarke hold Coumadin continue metoprolol hypothyroidism continue levothyroxine COPD denies any dyspnea, no excessive sputum production continue home inhalers monitor for exacerbation DVT prophylaxis mechanical
--- NOTE | 2020-09-17 13:17 | MHC.CM.PN ---
EMR reviewed, pt was possible d/c today however pt is having pain when swallowing and is not able to tolerate po diet, no d/c for today, cm will cont to follow.
[2020-09-17] MEDS: Mag&Al/Sim/Diphenhyd/Lidocaine 10 ML ORAL.SUSP PO (16:56)
[2020-09-17] MEDS: Atorvastatin Calcium 80 MG TABLET PO (21:24)
[2020-09-18] VITALS: BP 125/64; PULSE 70; RESP 18; TEMP 36.3; O2SAT 95
[2020-09-18 03:48] VITALS: BP 115/70; PULSE 74; RESP 18; TEMP 36.3; O2SAT 96
[2020-09-18] MEDS: Omeprazole 20 MG CAPSULE.DR PO (05:45)
[2020-09-18] MEDS: Levothyroxine Sodium 100 MCG TABLET PO (05:45)
[2020-09-18] MEDS: Fluticasone/Vilanterol 200/25 BLST.W.DEV 1 PUFF INHALE (07:46)
[2020-09-18 07:47] VITALS: PULSE 67; O2SAT 94
[2020-09-18 08:00] VITALS: BP 130/60; PULSE 69; RESP 18; TEMP 36.4; O2SAT 94
[2020-09-18] MEDS: Mag&Al/Sim/Diphenhyd/Lidocaine 10 ML ORAL.SUSP PO (09:18)
[2020-09-18 09:19] VITALS: BP 130/60; PULSE 69
[2020-09-18] MEDS: Cholecalciferol (Vitamin D3) 25 MCG TABLET PO (09:19)
[2020-09-18] MEDS: Metoprolol Succinate ER 100 MG TAB.ER.24H PO (09:19)
[2020-09-18] MEDS: Ferrous Sulfate 324 MG TABLET.DR PO (09:19)
[2020-09-18] MEDS: Dronedarone HCl 400 MG TABLET PO (09:19)
[2020-09-18] MEDS: Folic Acid 1 MG TABLET PO (09:19)
[2020-09-18] MEDS: 0.9 % Sodium Chloride Flush 3 ML SYRINGE IVFLUSH (09:23)
[2020-09-18] MEDS: Fluticasone Propionate Nasal 16 GM SPRAY 1 SPRAY NOSTRIL-B (09:23)
--- NOTE | 2020-09-18 10:55 | PM.DS ---
DS: Providers Provider Date of Service: 09/18/20 Date of admission: 09/11/20 21:58 Primary care physician: Unknown Physician Consults: 09/12/20 01:21 Consult to Gastroenterology Routine Consulting Provider: Bernardo Mcgovern Reason for consultation: anemia, melena Has provider been notified: No Consult to Urology Routine Consulting Provider: Marvin Lilly Reason for consultation: hematuria Has provider been notified: No 09/15/20 10:56 Consult to Hematology / Oncology Routine Consulting Provider: Jackie Torres Reason for consultation: Esophageal mass w stricture for your eval. DS: Diagnosis Discharge Diagnosis (1) Normocytic anemia: Status: Acute (2) Elevated INR: Status: Acute (3) Hematuria: Status: Acute (4) Dysphagia: Status: Acute (5) TONI (acute kidney injury): Status: Acute (6) Squamous cell esophageal cancer: Status: Acute DS: Medications Discharge Medications Home Medications: Home Medications Medication Instructions Recorded Confirmed albuterol sulfate 90 mcg/actuation 1 inh INHALATION Q4H PRN 06/16/20 09/11/20 aerosol inhaler cholecalciferol (vitamin D3) 25 25 mcg PO DAILY 06/16/20 09/11/20 mcg (1,000 unit) tablet docusate sodium 100 mg capsule 100 mg PO BEDTIME PRN 06/16/20 09/11/20 dronedarone 400 mg tablet 400 mg PO BID 06/16/20 09/11/20 ferrous sulfate 325 mg (65 mg 325 mg PO DAILY 06/16/20 09/11/20 iron) tablet fluticasone propionate 50 1 spray INTRANASAL DAILY 06/16/20 09/11/20 mcg/actuation nasal spray,suspension folic acid 1 mg tablet 1 mg PO DAILY 06/16/20 09/11/20 levothyroxine 100 mcg tablet 100 mcg PO DAILY@62906/16/20 09/11/20 metoprolol succinate 100 mg 100 mg PO DAILY 06/16/20 09/11/20 tablet,extended release 24 hr omeprazole 20 mg capsule,delayed 20 mg PO DAILY@62906/16/20 09/11/20 release rosuvastatin 20 mg tablet 20 mg PO BEDTIME 06/16/20 09/11/20 tiotropium bromide 18 mcg capsule 1 cap INHALATION DAILY 06/16/20 09/11/20 with inhalation device albuterol sulfate 2.5 mg INHALATION Q4H PRN 09/11/20 09/11/20 Previous Rx's Medication Instructions Recorded fluticasone furoate 200 1 ea PO DAILY #60 cap 08/13/20 mcg-vilanterol 25 mcg/dose inhalation powder ferrous sulfate 324 mg PO DAILY #30 tab 09/17/20 oxycodone 2.5 mg PO Q4H PRN #10 tab 09/17/20 Magic Mouthwash 10 ml PO TIDAC PRN #240 ml 09/18/20 Diphen/Lido/Antacid 1:1:1 DS: Summary Hospital Course Hospital Course: Patient was admitted for right-sided chest pain, found to have anemia, elevated INR, dysphagia, moderate malnutrition, acute kidney injury. Patient underwent EGD which showed suspicious mass, pathology showed squamous cell esophageal cancer. Patient is able to tolerate modified diet with magic mouthwash, he will follow-up with Oncology for PET scan and staging to determine treatment plan. For his anemia he was given 2 units of packed red blood cells and hemoglobin improved and remained stable at around 10. patient was noted to have hematuria with elevated INR, his Coumadin has been held and will continue be held while further workup for his esophageal cancer is being undertaken. He was seen by Urology who recommended CT urogram which will be done as outpatient. Patient's renal function returned to normal. Time Spent with Patient Time attestation: Total time spent providing and/or coordinating discharge services: Discharge coordination time: Greater than 30 minutes Quality: Stroke Does the patient have a stroke diagnosis?: No Physical Exam Vital Signs: Vital Signs: Last Vital Signs Temp 97.5 F 09/18/20 08:00 Pulse 69 09/18/20 09:19 Resp 18 09/18/20 08:00 BP 130/60 09/18/20 09:19 Pulse Ox 94 09/18/20 08:00 Body Mass Index 18.3 DS: Data Data Completed and Pending Completed studies during hospitalization [Text1]: Pending at discharge 09/15/20 10:12 Surgical [PTH] Routine Discharge Plan Discharge Patient Disposition: Home, Self-Care Discharge Diagnosis: esophogeal ca Referrals: Marvin Lilly MD [Physician] - 1 Week Bernardo Mcgovern MD [Physician] - 1 Week Physician,Unknown [Primary Care Provider] - 1 Week Discharge Medications: New ferrous sulfate 324 mg (65 mg iron) Tablet,Delayed Release (Dr/Ec) 324 mg PO DAILY Qty: 30 RF: 0 oxycodone 5 mg Tablet 2.5 mg PO Q4H PRN (Reason: Pain, Severe (Pain Scale 7-10)) Qty: 10 RF: 0 Magic Mouthwash Diphen/Lido/Antacid 1:1:1 240 mL suspension 10 ml PO TIDAC PRN (Reason: odynophagia) Qty: 240 RF: 0 Continued fluticasone furoate-vilanterol [Breo Ellipta] 200-25 mcg/dose blister with device 1 ea PO DAILY Qty: 60 RF: 3 albuterol sulfate 2.5 mg /3 mL (0.083 %) Solution For Nebulization 2.5 mg INHALATION Q4H PRN (Reason: Respiratory Distress) RF: 0 dronedarone 400 mg tablet 400 mg PO BID RF: 0 tiotropium bromide 18 mcg capsule, w/inhalation device 1 cap inhalation DAILY RF: 0 rosuvastatin 20 mg tablet 20 mg PO BEDTIME RF: 0 fluticasone propionate 50 mcg/actuation spray,suspension 1 spray intranasal DAILY RF: 0 albuterol sulfate 90 mcg/actuation HFA aerosol inhaler 1 inh inhalation Q4H PRN (Reason: Shortness Of Breath) RF: 0 omeprazole 20 mg capsule,delayed release(DR/EC) 20 mg PO DAILY@0630 RF: 0 levothyroxine 100 mcg tablet 100 mcg PO DAILY@0630 RF: 0 metoprolol succinate 100 mg tablet extended release 24 hr 100 mg PO DAILY RF: 0 folic acid 1 mg tablet 1 mg PO DAILY RF: 0 cholecalciferol (vitamin D3) 25 mcg (1,000 unit) tablet 25 mcg PO DAILY RF: 0 docusate sodium 100 mg capsule 100 mg PO BEDTIME PRN (Reason: Constipation) RF: 0 ferrous sulfate 325 mg (65 mg iron) tablet 325 mg PO DAILY RF: 0 Discontinued amlodipine 5 mg tablet 5 mg PO DAILY RF: 0 warfarin 3 mg tablet 3 mg PO SUTUTHFRSA@1800 RF: 0 warfarin 4 mg tablet 4 mg PO MOWE@1800 RF: 0 Discharge Orders: Discharge Order (Routine); Ordered 09/18/20 Ordered By: Larry Santana Diet: other Activity on Discharge: As tolerated Stand Alone Forms: Patient Portal Discharge page Care Plan Goals: work up cancer Health Concerns: esophogeal cancer, hematuria Plan of Treatment: follow up oncology for pet scan, modified diet, CT urogram, follow up urology Assessment: see above
--- NOTE | 2020-09-18 11:11 | MHC.SL.SWA ---
Speech Pathologist Impression: Oral Phase Dysphagia Risk of Aspiration Due to: Poor PO Intake Dysphasia Diet Status: No Change Liquid Consistency and Strategies for Safe Swallow: Liquid Intake Recommendation: Thin Liquid Intake Strategies: Small Sips Solid Food Consistency: Dietary Recommendations: Chopped/Advanced (NDD3) Oral Medication Intake: Crushed with Puree Compensatory Strategies and Precautions to be Taken for Safe Swallow: Sitting Upright (90 deg) Liquids from Cup Small Bites and Sips Alternate Liquids/Solids Rate of Ingestion Change Avoid Specific Foods Supervision While Eating and Drinking for Safe Swallow: Intermittent Supervision Foods to Avoid: Recommend avoid sticky and tough foods. Swallowing Recommended Treatments: Compens. Strategy Educat. Recommendation for Speech: Inpatient Speech Therapy Comment: Patient complains of pain when swallowing. Patient located pain in larynx and right side neck/chest. Per MD note, patient had biopsy with pathology showing squamous cell esophageal carcinoma. Media Sales Representative Clinican/Clinical Fellow: No Supervisory Statement: I have reviewed and agree with the student/clinical fellow's documentation: N/A Speech Language Pathologist: [place] Barrett M.A., CCC-SOIL AND PLANT SCIENTIST
[2020-09-18 12:00] VITALS: BP 111/62; PULSE 63; RESP 18; TEMP 37.1; O2SAT 95
--- NOTE | 2020-09-18 12:02 | MHC.CM.PN ---
Patient has been medically cleared for dc to home today, no services.Second IMM addressed with Patient and the original has been given to him and a copy has been placed on the chart. Patient's Son will provide transportation piper home around 2PM (RN aware).Patient and family are aware of and in agreement with the dc plan.
== END 2020-09-18 15:51 | disposition home or self-care (01) | DRG 375 ==
LOC: HO.ED 15:45 → HO.EDOVER 22:33 → HO.IMC 22:49
PROVIDERS: Internal Medicine; Internal Medicine Gastroenterology; Physician Assistant; Student in an Organized Health Care Education/Training Program; Urology; Admitting Provider Internal Medicine; Emergency Provider Emergency Medicine; Visit Provider Internal Medicine
PROC: 0DJ08ZZ Inspection of Upper Intestinal Tract, Via Natural or Artificial Opening Endoscopic (ICD-10-PCS; CPT 43235; principal; 2020-09-15 09:50)
DX: C15.4 Malignant neoplasm of middle third of esophagus (principal); S22.43XA Multiple fractures of ribs, bilateral, initial encounter for closed fracture; D62 Acute posthemorrhagic anemia; N17.9 Acute kidney failure, unspecified; E44.0 Moderate protein-calorie malnutrition; Z68.1 Body mass index [BMI] 19.9 or less, adult; I25.10 Atherosclerotic heart disease of native coronary artery without angina pectoris; K21.9 Gastro-esophageal reflux disease without esophagitis; E78.5 Hyperlipidemia, unspecified; I48.91 Unspecified atrial fibrillation; Z20.822 Contact with and (suspected) exposure to COVID-19; R31.9 Hematuria, unspecified; J44.9 Chronic obstructive pulmonary disease, unspecified; H54.8 Legal blindness, as defined in USA; E03.9 Hypothyroidism, unspecified; E53.8 Deficiency of other specified B group vitamins; F17.210 Nicotine dependence, cigarettes, uncomplicated; Z71.6 Tobacco abuse counseling; R13.10 Dysphagia, unspecified; R79.1 Abnormal coagulation profile; X58.XXXA Exposure to other specified factors, initial encounter; K31.7 Polyp of stomach and duodenum; K44.9 Diaphragmatic hernia without obstruction or gangrene; Z86.73 Personal history of transient ischemic attack (TIA), and cerebral infarction without residual deficits; Z98.61 Coronary angioplasty status; Z79.51 Long term (current) use of inhaled steroids; Z79.890 Hormone replacement therapy; Z79.891 Long term (current) use of opiate analgesic; Z79.899 Other long term (current) drug therapy; Z66 Do not resuscitate
CPT/HCPCS: 0241U; 36415; 70450; 71045; 71260; 74178; 74220; 80048; 80076; 81001; 81003; 82272; 82378; 82607; 82728; 82746; 83615; 83690; 83735; 84484; 85025; 85610; 85730; 86850; 86900; 86901; 86923; 88112; 88305; 88342; 88360; 92610; 93005; 94640; 97162; 99285; C1726; J2405; J2916; J3430; P9016; Q9967

== ENCOUNTER 2020-10-03 11:03 | Outpatient (RCR) | payer MEDICARE, OTHER, SELFPAY ==
[2020-10-03 11:19] VITALS: BP 150/82; PULSE 114; RESP 14; TEMP 36.6; O2SAT 98; BMI 17.7
--- NOTE | 2020-10-03 11:53 | PM.HEMONCPN ---
Medical Summary - Medical Summary Date of Service: 10/03/20 Chief complaint: Difficulty swallowing Medical Summary: Diagnosis: Esophageal cancer September 2020 Patient presented with dysphagia and anemia secondary to GI bleed in September 2020. EGD showed polypoidal mass with stricture at [address] chest with contrast showed abnormal wall thickening of the mid thoracic esophagus, infiltration of the adjacent fat and mediastinal lymph nodes. Interval increase in density in the 5 mm right lower lobe nodule and new bilateral upper lobe scarring or subsegmental atelectasis and abnormal parenchymal density in the right upper lobe compared to April 2018 CTA. 09/15/2020 Biopsy of mass with stricture revealed invasive squamous cell carcinoma, well to moderately differentiated. Negative for lymphovascular invasion. PD L1 CPS score of 17. Interval History Interval history: Patient is here in hospital follow-up. He is accompanied by his son and [id number]. Hard of hearing. However he does understand that he has cancer and he is willing to get treatment. His appetite is poor and he has difficulty swallowing. He is willing for placement of feeding tube. He denies fever or chills. No change in bowel habits. Review of Systems - Constitutional Reports as per HPI, Reports no additional constitutional complaints - Cardiovascular Reports no additional cardiovascular complaints - Respiratory Reports no additional respiratory complaints [facility] Medical History: Medical History (Last Reviewed 09/16/20 @ 11:42 by Nat Miller, PT) Allergic rhinitis Atrial fibrillation CAD (coronary artery disease) CKD (chronic kidney disease) COPD (chronic obstructive pulmonary disease) GERD (gastroesophageal reflux disease) History of GI bleed HLD (hyperlipidemia) Hypertension Hypothyroidism Prostate cancer Smoker Surgical History: Surgical History (Last Reviewed 09/16/20 @ 11:42 by Nat Miller, PT) H/O prostatectomy Social History: Social History (Last Reviewed 09/15/20 @ 09:23 by Argenis Lewis) Living Situation History: Household Members: Family Household Members Other:: son and daughter in law Housing: House Do you presently have visiting nurse or other home services: No Alcohol History: Alcohol intake: unknown Alcohol History Details: Alcohol intake frequency: former alcohol drinker Tobacco History: Patient Tobacco Use Status: Current everyday Tobacco Tobacco use type: Cigarette Cigarette Packs Per Day: 0.5 Second Hand Smoke Exposure: No Advance Directives: Advance Directives Date on File: 09/12/20 Occupation Assessmet: service: Yes Current occupational status: disabled Oncology Screenings - ECOG Performance Status ECOG Performance Status: 2 Home Medications and Allergies Home Medications Medication Instructions Recorded Confirmed Type albuterol sulfate 90 mcg/actuation 1 inh INHALATION Q4H PRN 06/16/20 10/03/20 History aerosol inhaler cholecalciferol (vitamin D3) 25 25 mcg PO DAILY 06/16/20 10/03/20 History mcg (1,000 unit) tablet docusate sodium 100 mg capsule 100 mg PO BEDTIME PRN 06/16/20 10/03/20 History dronedarone 400 mg tablet 400 mg PO BID 06/16/20 10/03/20 History ferrous sulfate 325 mg (65 mg 325 mg PO DAILY 06/16/20 10/03/20 History iron) tablet fluticasone propionate 50 1 spray INTRANASAL DAILY 06/16/20 10/03/20 History mcg/actuation nasal spray,suspension folic acid 1 mg tablet 1 mg PO DAILY 06/16/20 10/03/20 History levothyroxine 100 mcg tablet 100 mcg PO DAILY@30 06/16/20 10/03/20 History metoprolol succinate 100 mg 100 mg PO DAILY 06/16/20 10/03/20 History tablet,extended release 24 hr omeprazole 20 mg capsule,delayed 20 mg PO DAILY@30 06/16/20 10/03/20 History release rosuvastatin 20 mg tablet 20 mg PO BEDTIME 06/16/20 10/03/20 History tiotropium bromide 18 mcg capsule 1 cap INHALATION DAILY 06/16/20 10/03/20 History with inhalation device albuterol sulfate 2.5 mg INHALATION Q4H PRN 09/11/20 10/03/20 History tiotropium bromide [Spiriva with 1 cap INHALATION DAILY 10/03/20 10/03/20 History HandiHaler] Allergies Allergy/AdvReac Type Severity Reaction Status Date / Time lisinopril [LISINOPRIL] Allergy Severe ANGIOEDEMA Verified 06/16/20 10:54 quinine [Quinine] Allergy Unknown HIVES Verified 06/16/20 10:54 Exam Vital signs: Vital Signs Temp 97.8 F 10/03/20 11:19 Pulse 114 H 10/03/20 11:19 Resp 14 10/03/20 11:19 BP 150/82 H 10/03/20 11:19 Pulse Ox 98 10/03/20 11:19 Intake & Output 10/02/20 10/03/20 10/03/20 18:59 06:59 18:59 Other: Weight 49.8 kg Weight in Grams [id number] Weight 49.8 kg Body Mass Index 17.7 - Constitutional Present: no acute distress, chronically ill appearing - Routine HEENT Exam Head: Present: normal inspection Eye: Present: PERRL - Routine Neck Exam Present: normal inspection. Absent: lymphadenopathy - Routine Chest/Breast/Axilla Exam Axillae: Absent: lymphadenopathy - Routine Respiratory Exam Present: CTAB. Absent: rhonchi, stridor - Routine Cardiovascular Exam Cardiovascular: Present: S1, S2 - Routine Abdominal Exam Present: soft - Routine Skin Exam Present: intact, warm - Routine Neurological Exam Present: alert, oriented X3 Data - Labs Labs: Laboratory Tests 09/17/20 09/17/20 05:00 05:00 WBC 7.6 RBC 3.33 L Hgb 10.1 L Hct 31.2 L Plt Count 290 Sodium 138 BUN 8 L Creatinine 0.82 Carcinoembryonic Ag 5.90 Progress Note: A/P (1) Esophageal cancer Status: Acute Assessment and plan: 1. This is a 79-year-old male with esophageal cancer, invasive squamous cell carcinoma, well to moderately differentiated. PDL1-combined positive score 17. Patient is eligible for treatment with pembrolizumab or Keytruda. He has significant dysphagia and poor performance status. I have discussed feeding tube placement and he is agreeable for this. He appears to have locally advanced disease based on his CT imaging with local infiltration as well as right lower lobe lung nodule has increased in size compared to prior scan. PET-CT has been ordered. Depending on stage, further recommendations will be made. Follow-up in 10 days. - Time Spent With Patient 25 - 35 minutes
--- NOTE | 2020-10-03 15:55 | MHC.HEMONCMA ---
Patient came in for a consult for esophogeal cancer, states he is doing ok. Clinical summary was reviewed and updated. Patient did not have labs, will return in 2 weeks. Patient is being scheduled for his PET at [facility] per patient's family's request.
== END 2020-10-20 | disposition home or self-care (01) ==
LOC: HO.ONC 11:03
PROVIDERS: Visit Provider Internal Medicine
DX: C15.9 Malignant neoplasm of esophagus, unspecified (principal); R13.10 Dysphagia, unspecified
CPT/HCPCS: 99214

== ENCOUNTER 2020-10-10 12:37 | Day surgery (SDC) | payer MEDICARE, OTHER, SELFPAY ==
--- NOTE | 2020-10-09 09:17 | P.CONAN_ITS ---
Documented by User: Gabrielle Brayney 10/09/20 09:22 HPI - Anesthesia Eval Consult details Narrative: 79yo M for Upper Endoscopy with Peg Tube Placement s/p egd with dilation 09/2020 with MAC showed esophageal cancer, invasive squamous cell carcinoma PMFSH Active Problems Active Problems: All Active Problems (Updated 10/03/20 @ 14:11 by Jackie Torres MD) Esophageal cancer (Acute) Squamous cell esophageal cancer (Acute) Esophageal mass (Acute) Dysphagia (Acute) Hematuria (Acute) Rib fracture (Acute) Atypical chest pain (Acute) Normocytic anemia (Acute) Weakness (Acute) Anemia (Acute) Elevated INR (Acute) TONI (acute kidney injury) (Acute) Allergic rhinitis (Acute) COPD (chronic obstructive pulmonary disease) (Acute) Smoker (Acute) Past Medical History Medical History Allergic rhinitis Atrial fibrillation CAD (coronary artery disease) CKD (chronic kidney disease) COPD (chronic obstructive pulmonary disease) GERD (gastroesophageal reflux disease) History of GI bleed HLD (hyperlipidemia) [place] of [place]) Hypertension Hypothyroidism Legally blind Prostate cancer Smoker Surgical History Surgical History H/O prostatectomy History of tonsillectomy and adenoidectomy Hx of angioplasty Hx of angioplasty Hx of umbilical hernia repair Social History Social History Household Members: Family Household Members Other:: son and daughter in law Housing: House Do you presently have visiting nurse or other home services: No Alcohol intake: unknown Patient Tobacco Use Status: Current everyday Tobacco user Tobacco use type: Cigarette Cigarette Packs Per Day: 0.5 Cigarettes Per Day: 3 Second Hand Smoke Exposure: No Use of substances other than those prescribed or required for medical reasons: No Are you DNR?: No Advance Directives: No Advance Directives Information Provided: Yes Advance Directives Date on File: 09/12/20 service: Yes Current occupational status: disabled Meds Allergies Allergy/AdvReac Type Severity Reaction Status Date / Time lisinopril [LISINOPRIL] Allergy Severe ANGIOEDEMA Verified 10/10/20 13:44 quinine [Quinine] Allergy Unknown HIVES Verified 10/10/20 13:44 Home Medications Medication Instructions Recorded Confirmed Last Taken Type albuterol sulfate 90 mcg/actuation 1 inh INHALATION Q4H PRN 06/16/20 10/03/20 Unknown History aerosol inhaler cholecalciferol (vitamin D3) 25 25 mcg PO DAILY 06/16/20 10/03/20 09/11/20 History mcg (1,000 unit) tablet docusate sodium 100 mg capsule 100 mg PO BEDTIME PRN 06/16/20 10/03/20 Unknown History dronedarone 400 mg tablet 400 mg PO BID 06/16/20 10/03/20 10/10/20 06:30 History ferrous sulfate 325 mg (65 mg 325 mg PO DAILY 06/16/20 10/03/20 Unknown History iron) tablet fluticasone propionate 50 1 spray INTRANASAL DAILY 06/16/20 10/03/20 Unknown History mcg/actuation nasal spray,suspension folic acid 1 mg tablet 1 mg PO DAILY 06/16/20 10/03/20 09/11/20 History levothyroxine 100 mcg tablet 100 mcg PO DAILY@0630 06/16/20 10/03/20 10/10/20 06:30 History metoprolol succinate 100 mg 100 mg PO DAILY 06/16/20 10/03/20 10/10/20 06:30 History tablet,extended release 24 hr omeprazole 20 mg capsule,delayed 20 mg PO DAILY@0630 06/16/20 10/03/20 09/11/20 History release rosuvastatin 20 mg tablet 20 mg PO BEDTIME 06/16/20 10/03/20 09/10/20 History tiotropium bromide 18 mcg capsule 1 cap INHALATION DAILY 06/16/20 10/03/20 09/11/20 History with inhalation device albuterol sulfate 2.5 mg INHALATION Q4H PRN 09/11/20 10/03/20 Unknown History tiotropium bromide [Spiriva with 1 cap INHALATION DAILY 10/03/20 10/03/20 10/10/20 06:30 History HandiHaler] Exam Exam Date and Time: October 09, 2020 0917 Pertinent Lab Results Pertinent Lab Results: Laboratory Tests 09/17/20 09/17/20 05:00 05:00 WBC 7.6 Hgb 10.1 L Hct 31.2 L Plt Count 290 Sodium 138 Potassium 3.4 Chloride 107 Carbon Dioxide 24 BUN 8 L Creatinine 0.82 Narrative Narrative: EKG 09/2020 Vent. Rate : 063 BPM Atrial Rate : 063 BPM P-R Int : 148 ms QRS Dur : 134 ms QT Int : 474 ms P-R-T Axes : 059 -62 076 degrees QTc Int : 485 ms Normal sinus rhythm Left axis deviation Right bundle branch block Abnormal ECG When compared with ECG of 08-MAY-2018 14:30, Nonspecific T wave abnormality no longer evident in Inferior leads T wave inversion less evident in Anterolateral leads QT has shortened Assessment and Plan Assessment Anesthesia Assessment: Chart Reviewed Documented by User: Laura Jaquez 10/10/20 14:59 PMFSH Past Medical History Medical History Allergic rhinitis Atrial fibrillation CAD (coronary artery disease) CKD (chronic kidney disease) COPD (chronic obstructive pulmonary disease) GERD (gastroesophageal reflux disease) History of GI bleed HLD (hyperlipidemia) [place]hard of [place]) Hypertension Hypothyroidism Legally blind Prostate cancer Smoker Surgical History Surgical History H/O prostatectomy History of tonsillectomy and adenoidectomy Hx of angioplasty Hx of angioplasty Hx of umbilical hernia repair Social History Social History Household Members: Family Household Members Other:: son and daughter in law Housing: House Do you presently have visiting nurse or other home services: No Alcohol intake: unknown Patient Tobacco Use Status: Current everyday Tobacco user Tobacco use type: Cigarette Cigarette Packs Per Day: 0.5 Cigarettes Per Day: 3 Second Hand Smoke Exposure: No Use of substances other than those prescribed or required for medical reasons: No Are you DNR?: No Advance Directives: No Advance Directives Information Provided: Yes Advance Directives Date on File: 09/12/20 service: Yes Current occupational status: disabled Meds Allergies Allergy/AdvReac Type Severity Reaction Status Date / Time lisinopril [LISINOPRIL] Allergy Severe ANGIOEDEMA Verified 10/10/20 13:44 quinine [Quinine] Allergy Unknown HIVES Verified 10/10/20 13:44 Home Medications Medication Instructions Recorded Confirmed Last Taken Type albuterol sulfate 90 mcg/actuation 1 inh INHALATION Q4H PRN 06/16/20 10/03/20 Unknown History aerosol inhaler cholecalciferol (vitamin D3) 25 25 mcg PO DAILY 06/16/20 10/03/20 09/11/20 History mcg (1,000 unit) tablet docusate sodium 100 mg capsule 100 mg PO BEDTIME PRN 06/16/20 10/03/20 Unknown History dronedarone 400 mg tablet 400 mg PO BID 06/16/20 10/03/20 10/10/20 06:30 History ferrous sulfate 325 mg (65 mg 325 mg PO DAILY 06/16/20 10/03/20 Unknown History iron) tablet fluticasone propionate 50 1 spray INTRANASAL DAILY 06/16/20 10/03/20 Unknown History mcg/actuation nasal spray,suspension folic acid 1 mg tablet 1 mg PO DAILY 06/16/20 10/03/20 09/11/20 History levothyroxine 100 mcg tablet 100 mcg PO DAILY@0606/16/20 10/03/20 10/10/20 06:30 History metoprolol succinate 100 mg 100 mg PO DAILY 06/16/20 10/03/20 10/10/20 06:30 History tablet,extended release 24 hr omeprazole 20 mg capsule,delayed 20 mg PO DAILY@30 06/16/20 10/03/20 09/11/20 History release rosuvastatin 20 mg tablet 20 mg PO BEDTIME 06/16/20 10/03/20 09/10/20 History tiotropium bromide 18 mcg capsule 1 cap INHALATION DAILY 06/16/20 10/03/20 09/11/20 History with inhalation device albuterol sulfate 2.5 mg INHALATION Q4H PRN 09/11/20 10/03/20 Unknown History tiotropium bromide [Spiriva with 1 cap INHALATION DAILY 10/03/20 10/03/20 10/10/20 06:30 History HandiHaler] Exam Airway Mallampati Class: II TM Dist: >3cm Neck ROM: Full Assessment and Plan Assessment Anesthesia Assessment: Anesthesia Plan Discussed and Chart Reviewed Final Anesthetic Review NPO: Yes ASA Class: IV Final Preanesthetic Review: No Changes in Pt Med Stat, Meds/Allgs Chart Reviewed, Consent Obtained/Reviewed and Anes Risks/Benef Reviewed Patient Risk: High Procedure Risk: Low Assessment/Block/Sedation in SS: Assess/Block/Sedation-SS Anesthetic Plan Anesthetic Plan: MAC: Disposition: Standard PACU
[2020-10-10] VITALS (10 sets, daily range): BP systolic 92–142; BP diastolic 63–77; PULSE 74–88; RESP 16–18; TEMP 36.4–36.7; O2SAT 96–100; BMI 17.9
[2020-10-10] MEDS: Lactated Ringers 1,000 ML 100 ML IVCONT (13:36)
--- NOTE | 2020-10-10 15:38 | PM.OP ---
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 Instrument: Olympus GIF H 190 mid size upper endoscope Monitoring: Vital signs and clinical assessment, continuous EKG monitoring, Pulse oximetry, Carbon Dioxide monitoring and blood pressure monitoring were done throughout the procedure. Procedure: The patient was placed in the left lateral decubitis position and pre-procedure medications were administered and a bite block was placed. The endoscope was inserted into the mouth and advanced under direct vision to the third part of duodenum. A careful inspection was made as the upper endoscope was withdrawn including a retroflexed examination of the proximal stomach; Findings and interventions are described below. Findings: Larynx: Normal Esophagus: Polypoidal mass with tight stricture at 25 cms with food debris. Stricture was dilated with 9, 10 and 11 mm CRE balloon x 60 secs at each level. Moderate resistance felt on attempts to pass a mid size upper endoscope through the stricture. Intervention: Biopsies and balloon dilation as noted above Impression and Post Procedure Diagnosis: Endoscopy Findings: ESOPHAGUS: Polypoidal mass with tight stricture at 25 cms with food debris. Stricture was dilated with 9, 10 and 11 mm CRE balloon x 60 secs at each level. Moderate resistance felt on attempts to pass a mid size upper endoscope through the stricture. Unable to place a PEG tube Plan: Patient will be scheduled for repeat EGD with esophageal stent placment with Dr Farfan next week. To continue taking a full liquid diet in the interim Above findings were reviewed with the patient and Mimi, his daughter in law. Surgeon: Bernardo Mcgovern MD Anesthesia: MAC (Mike Jacobo CRNA) Was an Subway Car Repairer used for this Procedure?: Yes Subway Car Repairer: Gabriela Velázquez Estimated blood loss (mL): 0 Pathology: other (A. Esophageal mass) Condition: stable Disposition: PACU
--- NOTE | 2020-10-10 15:38 | MHC.SHP ---
Pre-Procedural Eval Section A Date of Service: 10/10/20 The patient is an INPATIENT: No The History & Physical has been completed within 30 days and I have reviewed it.: No Section B Chief Complaint: Esophageal Cancer Details of Present Illness: Dysphagia, esophageal cancer Present Medications: see Short Stay Collaborative assessment Medical History: Significant History (Allergic rhinitis Atrial fibrillation CAD (coronary artery disease) CKD (chronic kidney disease) COPD (chronic obstructive pulmonary disease) GERD (gastroesophageal reflux disease) History of GI bleed HLD (hyperlipidemia) Hypertension Hypothyroidism Prostate cancer Smoker) Allergies: Allergies Allergy/AdvReac Type Severity Reaction Status Date / Time lisinopril [LISINOPRIL] Allergy Severe ANGIOEDEMA Verified 10/10/20 13:44 quinine [Quinine] Allergy Unknown HIVES Verified 10/10/20 13:44 Review of Systems Sugical H&P ROS: Negative: Constitution, Cardiovascular and Respiratory and Yes, Specify: Gastrointestinal (Dysphagia) Exam Surgical H&P Exam: Normal: Heart, Normal: Lungs, Normal: Extremities and Normal: Abdomen Plan Diagnosis/Plan: Change (EGD with balloon dilation of esophagus and PEG tube placement) I have reviewed the history and physical and performed a pertinent physical examination on my patient. No changes have occurred unless specified.
--- NOTE | 2020-10-10 18:19 | P.OP_ITS ---
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 Instrument: Olympus GIF H 190 mid size upper endoscope Monitoring: Vital signs and clinical assessment, continuous EKG monitoring, Pulse oximetry, Carbon Dioxide monitoring and blood pressure monitoring were done throughout the procedure. Procedure: The patient was placed in the left lateral decubitis position and pre-procedure medications were administered and a bite block was placed. The endoscope was inserted into the mouth and advanced under direct vision to the third part of duodenum. A careful inspection was made as the upper endoscope was withdrawn including a retroflexed examination of the proximal stomach; Findings and interventions are described below. Findings: Larynx: Normal Esophagus: Polypoidal mass with tight stricture at 25 cms with food debris. Stricture was dilated with 9, 10 and 11 mm CRE balloon x 60 secs at each level. Moderate resistance felt on attempts to pass a mid size upper endoscope through the stricture. Intervention: Biopsies and balloon dilation as noted above Impression and Post Procedure Diagnosis: Endoscopy Findings: ESOPHAGUS: Polypoidal mass with tight stricture at 25 cms with food debris. Stricture was dilated with 9, 10 and 11 mm CRE balloon x 60 secs at each level. Moderate resistance felt on attempts to pass a mid size upper endoscope through the stricture. Unable to place a PEG tube Plan: Patient will be scheduled for repeat EGD with esophageal stent placment with Dr Farfan next week. To continue taking a full liquid diet in the interim Above findings were reviewed with the patient and Mimi, his daughter in law. Surgeon: Bernardo Mcgovern MD Anesthesia: MAC (Mike Jacobo CRNA) Was an Office Associate used for this Procedure?: No Estimated blood loss (mL): 0 Pathology: other (A. Esophageal mass) Condition: stable Disposition: PACU
== END 2020-10-10 17:45 | disposition home or self-care (01) ==
LOC: HO.SSS 12:37 → HO.S3 16:41
PROVIDERS: Visit Provider Internal Medicine Gastroenterology
PROC: 0DJ08ZZ Inspection of Upper Intestinal Tract, Via Natural or Artificial Opening Endoscopic (ICD-10-PCS; CPT 43235; principal; 2020-10-10 13:50)
DX: C15.9 Malignant neoplasm of esophagus, unspecified (principal); K22.2 Esophageal obstruction; R13.10 Dysphagia, unspecified; I25.10 Atherosclerotic heart disease of native coronary artery without angina pectoris; Z98.61 Coronary angioplasty status; I48.91 Unspecified atrial fibrillation; I12.9 Hypertensive chronic kidney disease with stage 1 through stage 4 chronic kidney disease, or unspecified chronic kidney disease; N18.9 Chronic kidney disease, unspecified; J44.9 Chronic obstructive pulmonary disease, unspecified; J96.91 Respiratory failure, unspecified with hypoxia; E78.5 Hyperlipidemia, unspecified; E03.9 Hypothyroidism, unspecified; Z79.899 Other long term (current) drug therapy; Z79.51 Long term (current) use of inhaled steroids; F17.210 Nicotine dependence, cigarettes, uncomplicated; Z88.8 Allergy status to other drugs, medicaments and biological substances; Z85.46 Personal history of malignant neoplasm of prostate
CPT/HCPCS: 43249; 43239; 36415; 88305; 88360; C1726; J0690

== ENCOUNTER 2020-10-19 16:33 | Inpatient (IN) | payer MEDICARE, OTHER, SELFPAY ==
--- NOTE | 2020-10-19 | ECG_ITS ---
Test Reason : SHORTNESS OF BREATH Blood Pressure : / mmHG Vent. Rate : 121 BPM Atrial Rate : 121 BPM P-R Int : 136 ms QRS Dur : 106 ms QT Int : 336 ms P-R-T Axes : 000 -67 027 degrees QTc Int : 477 ms Sinus tachycardia with Premature atrial complexes with Aberrant conduction Incomplete right bundle branch block Left anterior fascicular block ST & T wave abnormality, consider anterior ischemia Abnormal ECG When compared with ECG of 11-SEP-2020 12:39, Aberrant conduction is now Present Vent. rate has increased BY 58 BPM Incomplete right bundle branch block has replaced Right bundle branch block Referred By: Generic ED Physician Electronically Signed By:Charles Kauffman
--- NOTE | ~2020-10-19 | XR_ITS ---
EXAMINATION: XR CHEST CLINICAL INFORMATION: Cough, dyspnea. COMPARISON: Chest radiograph done on 09/11/2020. TECHNIQUE: Frontal view of the chest was obtained. FINDINGS: Hyperinflated lung narayan are present bilaterally, consistent with COPD/emphysema. Bibasilar patchy airspace disease is noted, new since prior study, may represent hypoventilatory, atelectatic changes versus infiltrate or combination thereof. The cardiac mediastinal silhouette is within normal limit. Old healed fractures are noted within the right posterior medial hemithorax, unchanged. XR/XR chest 1V IMPRESSION: Abnormal chest radiograph showing features most consistent with COPD/emphysema and superimposed nonspecific bibasilar airspace disease. Bibasilar airspace disease appear new since 09/11/2020.
[2020-10-19 16:44] VITALS: BP 142/76; PULSE 120; RESP 26; TEMP 36.6; O2SAT 97; BMI 18.1
--- NOTE | 2020-10-19 16:50 | ED_ITS ---
HPI - SOB/Dyspnea General Chief Complaint: Dyspnea Stated Complaint: diff breathing Time Seen by Provider: 10/19/20 16:50 Source: patient and family Mode of arrival: EMS History of Present Illness HPI Narrative: Patient has significant history of coronary artery disease, CKD, COPD, GERD, history of bleed, hypertension and hypothyroidism and prostate cancer recently diagnosed with esophageal cancer status post balloon dilatation on 10/10Comes here for increased cough difficulty in swallowing and shortness of breath patient poor historian and very hard of hearing patient was saturating 90s at room air unable to get the feeding tube Related Data Home Medications Medication Instructions Recorded Confirmed albuterol sulfate 90 mcg/actuation 1 inh INHALATION Q4H PRN 06/16/20 10/19/20 aerosol inhaler cholecalciferol (vitamin D3) 25 25 mcg PO DAILY 06/16/20 10/19/20 mcg (1,000 unit) tablet docusate sodium 100 mg capsule 100 mg PO BEDTIME PRN 06/16/20 10/19/20 dronedarone 400 mg tablet 400 mg PO BID 06/16/20 10/19/20 ferrous sulfate 325 mg (65 mg 325 mg PO DAILY 06/16/20 10/19/20 iron) tablet fluticasone propionate 50 1 spray INTRANASAL DAILY 06/16/20 10/19/20 mcg/actuation nasal spray,suspension folic acid 1 mg tablet 1 mg PO DAILY 06/16/20 10/19/20 levothyroxine 100 mcg tablet 100 mcg PO DAILY@0630 06/16/20 10/19/20 metoprolol succinate 100 mg 100 mg PO DAILY 06/16/20 10/19/20 tablet,extended release 24 hr omeprazole 20 mg capsule,delayed 20 mg PO DAILY@0630 06/16/20 10/19/20 release rosuvastatin 20 mg tablet 20 mg PO BEDTIME 06/16/20 10/19/20 albuterol sulfate 2.5 mg INHALATION Q4H PRN 09/11/20 10/19/20 Spiriva with HandiHaler 1 cap INHALATION DAILY 10/03/20 10/19/20 Previous Rx's Medication Instructions Recorded fluticasone furoate 200 1 ea PO DAILY #60 cap 08/13/20 mcg-vilanterol 25 mcg/dose inhalation powder Magic Mouthwash 10 ml PO TIDAC PRN #240 ml 09/23/20 Diphen/Lido/Antacid 1:1:1 240 mL suspension Allergies Allergy/AdvReac Type Severity Reaction Status Date / Time lisinopril [LISINOPRIL] Allergy Severe ANGIOEDEMA Verified 10/10/20 13:44 quinine [Quinine] Allergy Unknown HIVES Verified 10/10/20 13:44 Review of Systems Review of Systems: Constitutional : + Weight loss, No Fever, No Chills ENT/Mouth : No sore throat, No Rhinorrhea Eyes: No Eye Pain, No Swelling Cardiovascular : No Chest Pain, no palpitations Respiratory : ++Cough, No Sputum, +shortness of breath Gastrointestinal : no Nausea, + Vomiting, No Diarrhea, No abdominal Pain, no black stools Genitourinary : No Dysuria, No Urinary Frequency Musculoskeletal : No joint pain, No Myalgias, No Joint Swelling Skin : No Skin Lesions, No rash Neuro : No Weakness, No Numbness, No Dizziness, No Headache Psych : No Anxiety/Panic, No Depression Heme/Lymph: No Bruising, No Lymphadenopathy Endocrine : No Polyuria, No Polydipsia All other systems reviewed and are negative [facility] Past Medical History Medical History Allergic rhinitis Atrial fibrillation CAD (coronary artery disease) CKD (chronic kidney disease) COPD (chronic obstructive pulmonary disease) GERD (gastroesophageal reflux disease) History of GI bleed HLD (hyperlipidemia) [place] (hard of hearing) Hypertension Hypothyroidism Legally blind Prostate cancer Smoker Surgical History H/O prostatectomy History of tonsillectomy and adenoidectomy Hx of angioplasty Hx of angioplasty Hx of umbilical hernia repair Social History Social History Household Members: Family Household Members Other:: son and daughter in law Housing: House Do you presently have visiting nurse or other home services: No Alcohol intake: unknown Patient Tobacco Use Status: Current everyday Tobacco user Tobacco use type: Cigarette Cigarette Packs Per Day: 0.5 Cigarettes Per Day: 3 Second Hand Smoke Exposure: No Advance Directives: Yes Advance Directives on File: Yes Advance Directives Date on File: 09/12/20 service: Yes Current occupational status: disabled Physical Exam Vital Signs: Vital Signs: Last Vital Signs Temp 98 F 10/19/20 16:44 Pulse 112 H 10/20/20 01:07 Resp 33 H 10/20/20 01:07 BP 156/78 H 10/20/20 01:07 Pulse Ox 96 10/20/20 01:07 Oxygen Flow Rate 2 10/19/20 16:44 Body Mass Index 18.1 Const: General: alert and ill appearing Nutritional Appearance: cachectic Orientation/consciousness: patient oriented x3 HENMT: Head: Yes No palpable skull fracture present and Yes normocephalic Neck: Neck: Yes normal visual inspection and Yes full ROM Chest: Chest palpation & inspection: normal inspection of the chest Resp: Effort & Inspection: normal respiratory effort Auscultation: clear to auscultation bilaterally and diminished lung sounds Cardio: Jugular venous distension: no JVD Rate: tachycardic Rhythm: abnormal rhythm irregularly irregular Heart sounds: S1 normal heart sound present and S2 normal heart sound present Peripheral pulses: Peripheral pulses 2+ throughout GI: Inspection: Yes normal to inspection Palpation (GI): Soft to palpation and nontender Auscultation: normal bowel sounds Neuro: General: patient oriented x3 and no focal motor deficits Extrem: General: Yes normal to inspection, Yes full ROM and No no pedal edema MDM - SOB/Dyspnea MDM Narrative Medical decision making narrative: Patient with esophageal cancer unable to eat anything or drink anything with frequent cough with aspiration pneumonia plan to have esophageal stent will admit for aspiration pneumonia and GI follow-up for further management of esophageal cancer Medical Records Attestation: I reviewed the patient's medical records. Lab Data Attestation: I reviewed the patient's lab results. Result diagrams: 10/19/20 17:22 10/19/20 23:08 Labs: Lab Results 10/19/20 10/19/20 10/19/20 Range/Units 17:22 17:22 17:22 WBC 7.8 (4.8-10.8) X10*3/uL RBC 4.69 D (4.60-5.80) X10*6/uL Hgb 13.4 L D (14.0-18.0) g/dl Hct 43.9 D (42-52) % MCV 93.6 (80-98) fL MCH 28.6 (27.0-33.0) pg MCHC 30.5 L (31.0-36.0) g/dl RDW 15.9 (11.0-16.0) % Plt Count 319 (160-400) X10*3/uL MPV 10.0 (9.4-12.4) fL Immature Gran % (Auto) 0.4 (0.0-0.4) % Neut % (Auto) 85.1 H (45-73) % Lymph % (Auto) 4.6 L (20-40) % Dickson % (Auto) 9.9 (2-11) % Eos % (Auto) 0.0 (0-4) % Baso % (Auto) 0.0 (0-2) % Lymph # (Auto) 0.4 L (1.2-4.9) X10*3/uL Dickson # (Auto) 0.8 (0.1-1.2) X10*3/uL Eos # (Auto) 0.0 (0.0-0.4) X10*3/uL Baso # (Auto) 0.0 (0.0-0.2) X10*3/uL Abs Immat Gran (auto) 0.03 (0.00-0.03) X10*3/uL Absolute Neuts (auto) 6.7 (2.0-8.3) X10*3/uL Absolute Nucleated RBC 0.000 (0.0-0.012) X10*3/uL Nucleated RBC % (auto) 0.0 (0.0-0.2) /100WBC PT 12.0 (9.9-13.0) SEC INR 1.1 (0.9-1.1) APTT 30.6 (24.1-38.0) SEC Sodium (135-145) mmol/L Potassium (3.3-5.1) mmol/L Chloride (96-108) mmol/L Carbon Dioxide (22-29) mmol/L Anion Gap (12-20) BUN (9-16) mg/dL Creatinine (0.5-1.4) mg/dL Estim Creat Clear Calc Estimated GFR Random Glucose (60-115) mg/dL Lactic Acid 1.8 (0.5-2.0) mmol/L Calcium (8.4-10.2) mg/dL COVID-19 ([facility]) (Negative) COVID-19 Clin Com 10/19/20 10/19/20 Range/Units 18:02 19:23 WBC (4.8-10.8) X10*3/uL RBC (4.60-5.80) X10*6/uL Hgb (14.0-18.0) g/dl Hct (42-52) % MCV (80-98) fL MCH (27.0-33.0) pg MCHC (31.0-36.0) g/dl RDW (11.0-16.0) % Plt Count (160-400) X10*3/uL MPV (9.4-12.4) fL Immature Gran % (Auto) (0.0-0.4) % Neut % (Auto) (45-73) % Lymph % (Auto) (20-40) % Dickson % (Auto) (2-11) % Eos % (Auto) (0-4) % Baso % (Auto) (0-2) % Lymph # (Auto) (1.2-4.9) X10*3/uL Dickson # (Auto) (0.1-1.2) X10*3/uL Eos # (Auto) (0.0-0.4) X10*3/uL Baso # (Auto) (0.0-0.2) X10*3/uL Abs Immat Gran (auto) (0.00-0.03) X10*3/uL Absolute Neuts (auto) (2.0-8.3) X10*3/uL Absolute Nucleated RBC (0.0-0.012) X10*3/uL Nucleated RBC % (auto) (0.0-0.2) /100WBC PT (9.9-13.0) SEC INR (0.9-1.1) APTT (24.1-38.0) SEC Sodium 151 H (135-145) mmol/L Potassium 3.4 (3.3-5.1) mmol/L Chloride 112 H (96-108) mmol/L Carbon Dioxide 22 (22-29) mmol/L Anion Gap 20 (12-20) BUN 22 H D (9-16) mg/dL Creatinine 0.81 (0.5-1.4) mg/dL Estim Creat Clear Calc 53.3 Estimated GFR > 60 Random Glucose 75 (60-115) mg/dL Lactic Acid (0.5-2.0) mmol/L Calcium 9.5 D (8.4-10.2) mg/dL COVID-19 ([facility]) Negative (Negative) COVID-19 Clin Com See Note Discharge Plan Discharge Clinical Impression: Aspiration pneumonia Qualifiers: Aspiration pneumonia type: due to regurgitated food Laterality: bilateral Lung location: lower lobe of lung Qualified Code(s): J69.0 - Pneumonitis due to inhalation of food and vomit Esophageal cancer Qualifiers: Malignant neoplasm of esophagus location: unspecified location Qualified Code(s): C15.9 - Malignant neoplasm of esophagus, unspecified Patient Disposition: Admitted As Inpatient
[2020-10-19] MEDS: 0.9 % Sodium Chloride 1,000 ML 999 ML IVCONT (17:25)
[2020-10-19 17:27] LABS: MANUAL DIFF FLAG NO
[2020-10-19 17:28] LABS: Hematocrit 43.9 % (42-52); Hemoglobin 13.4 g/dl (14.0-18.0); Imm Gran Abs Auto 0.03 X10*3/uL (0.00-0.03); Imm Gran Pct Auto 0.4 % (0.0-0.4); Lymphocytes Absolute Auto 0.4 X10*3/uL (1.2-4.9); Lymphocytes Percent Auto 4.6 % (20-40); Mean Corpuscular HGB Conc 30.5 g/dl (31.0-36.0); Mean Corpuscular Hemoglobin 28.6 pg (27.0-33.0); Mean Corpuscular Volume 93.6 fL (80-98); Monocytes Absolute Auto 0.8 X10*3/uL (0.1-1.2); Monocytes Percent Auto 9.9 % (2-11); Neutrophils Absolute Auto 6.7 X10*3/uL (2.0-8.3); Neutrophils Percent Auto 85.1 % (45-73); Platelet Count 319 X10*3/uL (160-400); Red Blood Count 4.69 X10*6/uL (4.60-5.80); Red Cell Distribution Width 15.9 % (11.0-16.0); White Blood Count 7.8 X10*3/uL (4.8-10.8)
[2020-10-19 17:37] LABS: INTERNATIONAL NORM RATIO 1.1 (0.9-1.1)
[2020-10-19 17:39] LABS: Partial Thromboplastin Time 30.6 SEC (24.1-38.0)
[2020-10-19 17:48] LABS: Lactic Acid 1.8 mmol/L (0.5-2.0)
[2020-10-19] MEDS: Piperacillin Sodium/Tazobactam 3.375 GM in 0.9 % Sodium Chloride 50 ML IV (18:56)
[2020-10-19 18:58] VITALS: BP 137/75; PULSE 98; RESP 28; O2SAT 98
[2020-10-19 19:34] LABS: Anion Gap 20 (12-20); Blood Urea Nitrogen 22 mg/dL (9-16); Calcium 9.5 mg/dL (8.4-10.2); Carbon Dioxide 22 mmol/L (22-29); Chloride 112 mmol/L (96-108); Creatinine Clr Calc Pharmacy 53.3; Estimated Glomerular Filt Rate > 60; Glucose Random 75 mg/dL (60-115); Potassium 3.4 mmol/L (3.3-5.1)
[2020-10-19 19:42] LABS: Sodium 151 mmol/L (135-145)
[2020-10-19 20:02] LABS: COVID-19 Test Negative (Negative); IDNOW Serial# 08D9AD1C
--- NOTE | 2020-10-19 20:41 | P.HPHOSP_ITS ---
History of Present Illness Date of Service: 10/19/20 Chief Complaint: Dysphagia 79-year-old male with a past medical history Of hypertension, hyperlipidemia, CAD, COPD, hypothyroidism, AFib-recently discontinued Coumadin, GERD, history of prostate cancer, recent diagnosis of esophageal mass, history of GI bleed pr esented to the hospital with a chief complaint of dysphagia. Most of the history obtained from the patient, patient's family at bedside; patient is hard of hearing. Reportedly since he was discharged from the hospital he has gradual decline in his oral intake; initially was able to manage with liquids but lately he is not able to keep anything down; has also not been taking his home oral pills for the past couple days. Complains of cough and LA sputum production. Complains of pointed chest pain since his discharge from the hospital; reports fatigue. Denies any urinary symptoms. Denies any diarrhea. Review of all other systems is negative next mentioned above ER course: Per ER team patient noted to have mild hypernatremia of 151, chest x-ray consistent with possible aspiration pneumonia; ER team also mentioned that GI-Dr. Farfan on plan to place esophageal stent Given antibiotics. Admitted for further management. [facility] Medical History Acute respiratory failure with hypoxia Allergic rhinitis Aspiration pneumonia Atrial fibrillation CAD (coronary artery disease) CKD (chronic kidney disease) COPD (chronic obstructive pulmonary disease) Dysphagia Esophageal cancer GERD (gastroesophageal reflux disease) History of GI bleed HLD (hyperlipidemia) [place] (hard of hearing) Hypertension Hypothyroidism Legally blind Prostate cancer Smoker Surgical History H/O prostatectomy History of tonsillectomy and adenoidectomy Hx of angioplasty Hx of angioplasty Hx of umbilical hernia repair Social History Household Members: Family Household Members Other:: son and daughter in law Housing: House Do you presently have visiting nurse or other home services: No Alcohol intake: unknown Patient Tobacco Use Status: Current everyday Tobacco user Tobacco use type: Cigarette Cigarette Packs Per Day: 0.5 Cigarettes Per Day: 3 Second Hand Smoke Exposure: No Advance Directives: Yes Advance Directives on File: Yes Advance Directives Date on File: 09/12/20 service: Yes Current occupational status: disabled Meds Allergies Allergy/AdvReac Type Severity Reaction Status Date / Time lisinopril [LISINOPRIL] Allergy Severe ANGIOEDEMA Verified 10/10/20 13:44 quinine [Quinine] Allergy Unknown HIVES Verified 10/10/20 13:44 Active Medications: Current Medications Generic Name Dose Route Start Last Admin Trade Name Freq PRN Reason Stop Dose Admin Acetaminophen 650 mg 10/19/20 20:09 Acetaminophen Supp 650 Mg Supp.Rect [place] Q6H PRN Pain, Mild (Pain Scale 1-3) Albuterol/Ipratropium 3 ml 10/19/20 20:09 Albuterol/Iprat 2.5/0.5mg 3 Ml Ampul.Neb INHALE RQ4H PRN Shortness of Breath/Wheezing Enoxaparin Sodium 40 mg 10/19/20 20:15 Enoxaparin Sodium 40 Mg/0.4 Ml Syringe SUBCUT Q24H RAINE Hydromorphone HCl 0.5 mg 10/19/20 20:09 Hydromorphone Hcl 0.5 Mg/0.5 Ml Syringe SUBCUT Q4H PRN Pain, Severe (Pain Scale 7-10) Dextrose/Sodium Chloride 1,000 mls @ 75 mls/hr 10/19/20 20:15 D51/2ns IVCONT .[id number] RAINE Vancomycin HCl 1,000 mg/ 270 mls @ 270 mls/hr 10/19/20 20:15 Sodium Chloride IV Q12H RAINE Piperacillin Sod/Tazobactam 50 mls @ 100 mls/hr 10/19/20 20:15 Sod 3.375 gm/ Sodium Chloride IV Q6H [facility] Levothyroxine Sodium 50 mcg 10/20/20 09:00 Levothyroxine Sodium 100 Mcg/5 Ml Vial IVPUSH DAILY [facility] Metoprolol Tartrate 5 mg 10/19/20 20:09 Metoprolol Tartrate 5 Mg/5 Ml Vial IVPUSH Q4H PRN SBP>160; HR>125 Pharmacy Consult 1 each 10/19/20 20:13 Consult Rx Vancomycin Dosing MISCELLANE DAILY PRN Consult order Sodium Chloride 3 ml 10/20/20 00:00 0.9 % Sodium Chloride Flush 3 Ml Syringe IVFLUSH QSHIFT [facility] Home Medications Medication Instructions Recorded Confirmed Last Taken Type albuterol sulfate 90 mcg/actuation 1 inh INHALATION Q4H PRN 06/16/20 10/19/20 Unknown History aerosol inhaler cholecalciferol (vitamin D3) 25 25 mcg PO DAILY 06/16/20 10/19/20 09/11/20 History mcg (1,000 unit) tablet docusate sodium 100 mg capsule 100 mg PO BEDTIME PRN 06/16/20 10/19/20 Unknown History dronedarone 400 mg tablet 400 mg PO BID 06/16/20 10/19/20 10/10/20 06:30 History ferrous sulfate 325 mg (65 mg 325 mg PO DAILY 06/16/20 10/19/20 Unknown History iron) tablet fluticasone propionate 50 1 spray INTRANASAL DAILY 06/16/20 10/19/20 Unknown History mcg/actuation nasal spray,suspension folic acid 1 mg tablet 1 mg PO DAILY 06/16/20 10/19/20 09/11/20 History levothyroxine 100 mcg tablet 100 mcg PO DAILY@0630 06/16/20 10/19/20 10/10/20 06:30 History metoprolol succinate 100 mg 100 mg PO DAILY 06/16/20 10/19/20 10/10/20 06:30 History tablet,extended release 24 hr omeprazole 20 mg capsule,delayed 20 mg PO DAILY@0630 06/16/20 10/19/20 09/11/20 History release rosuvastatin 20 mg tablet 20 mg PO BEDTIME 06/16/20 10/19/20 09/10/20 History albuterol sulfate 2.5 mg INHALATION Q4H PRN 09/11/20 10/19/20 Unknown History Spiriva with HandiHaler 1 cap INHALATION DAILY 10/03/20 10/19/20 10/10/20 06:30 History Physical Exam Vital Signs and Narrative: Vital Signs: Last Vital Signs Temp 98 F 10/19/20 16:44 Pulse 98 10/19/20 18:58 Resp 28 H 10/19/20 18:58 BP 137/75 10/19/20 18:58 Pulse Ox 98 10/19/20 18:58 Oxygen Flow Rate 2 10/19/20 16:44 Body Mass Index 18.1 Gen: Appears be in no acute distress.; hard of hearing; speaks in full sentences HEENT: NCAT, Moist mucosa. Pulmonary: Coarse breath sounds; saturating 90% on 2 L of oxygen; breathing comfortably; chest pain reproducible CVS: Normal S1-S2 Abdomen: BS+, Soft, Nontender Extremities: Warm well perfused Neuro: Alert and awake. Results Labs CBC and Chem 7: 10/20/20 07:01 10/20/20 07:01 Labs: Laboratory Results - last 24 hr 10/19/20 10/19/20 10/19/20 17:22 17:22 17:22 MCV 93.6 MCH 28.6 MCHC 30.5 L RDW 15.9 Plt Count 319 MPV 10.0 Immature Gran % (Auto) 0.4 Neut % (Auto) 85.1 H Lymph % (Auto) 4.6 L B[place] % (Auto) 9.9 Eos % (Auto) 0.0 Baso % (Auto) 0.0 Lymph # (Auto) 0.4 L [place] # (Auto) 0.8 Eos # (Auto) 0.0 Baso # (Auto) 0.0 Abs Immat Gran (auto) 0.03 Absolute Neuts (auto) 6.7 Absolute Nucleated RBC 0.000 Nucleated RBC % (auto) 0.0 PT 12.0 INR 1.1 APTT 30.6 Anion Gap Estim Creat Clear Calc Estimated GFR Random Glucose Lactic Acid 1.8 Calcium COVID-19 ([facility]) COVID-19 Clin Com 10/19/20 10/19/20 18:02 19:23 MCV MCH MCHC RDW Plt Count MPV Immature Gran % (Auto) Neut % (Auto) Lymph % (Auto) Benton % (Auto) Eos % (Auto) Baso % (Auto) Lymph # (Auto) Benton # (Auto) Eos # (Auto) Baso # (Auto) Abs Immat Gran (auto) Absolute Neuts (auto) Absolute Nucleated RBC Nucleated RBC % (auto) PT INR APTT Anion Gap 20 Estim Creat Clear Calc 53.3 Estimated GFR > 60 Random Glucose 75 Lactic Acid Calcium 9.5 D COVID-19 ([facility]) Negative COVID-19 Clin Com See Note Imaging Radiologist's Impressions: Impressions Chest X-Ray 10/19/20 17:38 IMPRESSION: Abnormal chest radiograph showing features most consistent with COPD/emphysema and superimposed nonspecific bibasilar airspace disease. Bibasilar airspace disease appear new since 09/11/2020. Assessment and Plan (1) Dysphagia: 79-year-old male with a past medical history of hypertension, hyperlipidemia, CAD, COPD, hypothyroidism, history of hematuria, GI bleed; history of rib fracture; recent diagnosis of esophageal mass; history of AFib presented to the hospital with a chief complaint of poor oral intake/dysphagia. Dysphagia: In the setting of esophageal mass. Strict NPO. IV fluids. P.r.n. suction of oral secretions. Dr. Farfan Planning for esophageal stent. Aspiration pneumonia: Will continue vanc and Zosyn. Follow up cultures. COPD: DuoNebs p.r.n.. Patient currently on supplemental oxygen p.r.n.. Goal saturation 93%. Hypernatremia: Likely secondary to dehydration. Will repeat the blood chemistry. Patient on D5 half NS. Esophageal mass: Patient follows with Dr. Torres; patient recently had a PET scan. AFib with RVR: Patient cannot take p.o. medications. Will keep the patient on metoprolol IV p.r.n.. Patient not on anticoagulation currently. Discontinued during the recent admission secondary to hematuria; also patient has a history of GI bleed. Hypertension: Metoprolol IV p.r.n. Hypothyroidism: Continue levothyroxine IV-dose adjusted per p.o. dose. DVT prophylaxis: SCD boots Code status: DNR/DNI. Spoke to the patient's family as well at bedside Quality Stroke Does the patient have a stroke diagnosis?: No VTE Prior VTE?: No VTE Risk Level:: Medical - moderate - high VTE Device Contraindication: Treatment Not Indicated VTE Drug Contraindication: N/A - Med Ordered
[2020-10-19 21:30] VITALS: BP 137/75; PULSE 122
[2020-10-19] MEDS: Metoprolol Tartrate 5 MG/5 ML VIAL IVPUSH (21:30)
[2020-10-19 21:48] VITALS: BP 149/90; PULSE 90; RESP 26; O2SAT 96
[2020-10-19] MEDS: Dextrose 5 % and 0.45 % NaCl 1,000 ML 75 ML IVCONT (21:49)
[2020-10-19 23:42] LABS: Anion Gap 18 (12-20); Blood Urea Nitrogen 23 mg/dL (9-16); Carbon Dioxide 26 mmol/L (22-29); Chloride 109 mmol/L (96-108); Estimated Glomerular Filt Rate > 60; Glucose Random 97 mg/dL (60-115); Potassium 3.4 mmol/L (3.3-5.1); Sodium 150 mmol/L (135-145)
[2020-10-20 01:00] VITALS: BP 156/76; PULSE 112; RESP 33; O2SAT 96
[2020-10-20] MEDS: vancomycin HCL 1,000 MG in 0.9 % Sodium Chloride 250 ML 270 MG IV (01:06)
[2020-10-20] MEDS: Piperacillin Sodium/Tazobactam 3.375 GM in 0.9 % Sodium Chloride 50 ML IV ×2 (02:08→07:35)
[2020-10-20 04:10] VITALS: BP 156/78; PULSE 156
[2020-10-20] MEDS: Metoprolol Tartrate 5 MG/5 ML VIAL IVPUSH (04:10)
[2020-10-20] MEDS: diphenhydrAMINE HCL 50 MG/ML VIAL 12.5 MG IVPUSH (04:11)
[2020-10-20 06:00] VITALS: BP 127/78; PULSE 109; RESP 36; O2SAT 94
[2020-10-20 07:36] LABS: Hematocrit 41.5 % (42-52); Hemoglobin 12.4 g/dl (14.0-18.0); Mean Corpuscular HGB Conc 29.9 g/dl (31.0-36.0); Mean Corpuscular Hemoglobin 28.6 pg (27.0-33.0); Mean Corpuscular Volume 95.8 fL (80-98); Mean Platelet Volume 10.4 fL (9.4-12.4); Platelet Count 319 X10*3/uL (160-400); Red Blood Count 4.33 X10*6/uL (4.60-5.80); Red Cell Distribution Width 16.1 % (11.0-16.0)
--- NOTE | 2020-10-20 07:43 | PC.NURSE ---
pt alert and oriented, HR 109-118, pt denies pain, productive cough, pt able to clear sputum on his own. fluids infusing without difficult. pt requests cold water, drinks and swallows without difficulty. Levothyroxine unavailable in [facility], pharmacy was notified by this medical writer, awaiting pharmacy to bring to ed.
[2020-10-20] MEDS: Levothyroxine Sodium 100 MCG/5 ML VIAL 50 MCG IVPUSH (07:54)
[2020-10-20 07:56] LABS: WBC ABN SCTR FOR CBC 1
[2020-10-20 08:00] VITALS: BP 132/82; PULSE 97; RESP 33; O2SAT 93
--- NOTE | 2020-10-20 08:09 | PM.CNNEP ---
History of Present Illness Reason for Consult Consult date: 10/20/20 Chief Complaint Chief complaint: Dyshagia/ASP PNA/Hypernatremia Review of Systems Review of Systems Constitutional : + Weight loss, No Fever, No Chills ENT/Mouth : No sore throat, No Rhinorrhea Eyes: No Eye Pain, No Swelling Cardiovascular : No Chest Pain, no palpitations Respiratory : ++Cough, No Sputum, +shortness of breath Gastrointestinal : no Nausea, + Vomiting, No Diarrhea, No abdominal Pain, no black stools Genitourinary : No Dysuria, No Urinary Frequency Musculoskeletal : No joint pain, No Myalgias, No Joint Swelling Skin : No Skin Lesions, No rash Neuro : No Weakness, No Numbness, No Dizziness, No Headache Psych : No Anxiety/Panic, No Depression Heme/Lymph: No Bruising, No Lymphadenopathy Endocrine : No Polyuria, No Polydipsia All other systems reviewed and are negative Yes all other systems are reviewed and are negative [facility] Past Medical History Medical History Allergic rhinitis Atrial fibrillation CAD (coronary artery disease) CKD (chronic kidney disease) COPD (chronic obstructive pulmonary disease) GERD (gastroesophageal reflux disease) History of GI bleed HLD (hyperlipidemia) [place] (hard of hearing) Hypertension Hypothyroidism Legally blind Prostate cancer Smoker Surgical History Surgical History H/O prostatectomy History of tonsillectomy and adenoidectomy Hx of angioplasty Hx of angioplasty Hx of umbilical hernia repair Social History Social History Household Members: Family Household Members Other:: son and daughter in law Housing: House Do you presently have visiting nurse or other home services: No Alcohol intake: unknown Patient Tobacco Use Status: Current everyday Tobacco user Tobacco use type: Cigarette Cigarette Packs Per Day: 0.5 Cigarettes Per Day: 3 Second Hand Smoke Exposure: No Advance Directives: Yes Advance Directives on File: Yes Advance Directives Date on File: 09/12/20 service: Yes Current occupational status: disabled Meds Allergies Allergy/AdvReac Type Severity Reaction Status Date / Time lisinopril [LISINOPRIL] Allergy Severe ANGIOEDEMA Verified 10/10/20 13:44 quinine [Quinine] Allergy Unknown HIVES Verified 10/10/20 13:44 Active Medications: Current Medications Generic Name Dose Route Start Last Admin Trade Name Freq PRN Reason Stop Dose Admin Acetaminophen 650 mg 10/19/20 20:09 Acetaminophen Supp 650 Mg Supp.Rect [place] Q6H PRN Pain, Mild (Pain Scale 1-3) Albuterol/Ipratropium 3 ml 10/19/20 20:09 Albuterol/Iprat 2.5/0.5mg 3 Ml Ampul.Neb INHALE RQ4H PRN Shortness of Breath/Wheezing Hydromorphone HCl 0.5 mg 10/19/20 20:09 Hydromorphone Hcl 0.5 Mg/0.5 Ml Syringe SUBCUT Q4H PRN Pain, Severe (Pain Scale 7-10) Dextrose/Sodium Chloride 1,000 mls @ 75 mls/hr 10/19/20 20:15 10/19/20 21:49 D51/2ns IVCONT 75 mls/hr .[id number] RAINE Administration Vancomycin HCl 1,000 mg/ 270 mls @ 270 mls/hr 10/19/20 22:00 10/20/20 01:58 Sodium Chloride IV Infused Q24H RAINE Infusion Piperacillin Sod/Tazobactam 50 mls @ 100 mls/hr 10/20/20 01:00 10/20/20 07:35 Sod 3.375 gm/ Sodium Chloride IV 100 mls/hr Q6H RAINE Administration Levothyroxine Sodium 50 mcg 10/20/20 06:00 10/20/20 07:54 Levothyroxine Sodium 100 Mcg/5 Ml Vial IVPUSH 50 mcg DAILY@0600 RAINE Administration Metoprolol Tartrate 5 mg 10/19/20 20:09 10/19/20 21:30 Metoprolol Tartrate 5 Mg/5 Ml Vial IVPUSH 5 mg Q4H PRN Administration SBP>160; HR>125 Pharmacy Consult 1 each 10/19/20 20:13 Consult Rx Vancomycin Dosing MISCELLANE DAILY PRN Consult order Sodium Chloride 3 ml 10/20/20 00:00 10/20/20 01:06 0.9 % Sodium Chloride Flush 3 Ml Syringe IVFLUSH Not Given QSHIFT [facility] Home Medications Medication Instructions Recorded Confirmed Last Taken Type albuterol sulfate 90 mcg/actuation 1 inh INHALATION Q4H PRN 06/16/20 10/19/20 Unknown History aerosol inhaler cholecalciferol (vitamin D3) 25 25 mcg PO DAILY 06/16/20 10/19/20 09/11/20 History mcg (1,000 unit) tablet docusate sodium 100 mg capsule 100 mg PO BEDTIME PRN 06/16/20 10/19/20 Unknown History dronedarone 400 mg tablet 400 mg PO BID 06/16/20 10/19/20 10/10/20 06:30 History ferrous sulfate 325 mg (65 mg 325 mg PO DAILY 06/16/20 10/19/20 Unknown History iron) tablet fluticasone propionate 50 1 spray INTRANASAL DAILY 06/16/20 10/19/20 Unknown History mcg/actuation nasal spray,suspension folic acid 1 mg tablet 1 mg PO DAILY 06/16/20 10/19/20 09/11/20 History levothyroxine 100 mcg tablet 100 mcg PO DAILY@0630 06/16/20 10/19/20 10/10/20 06:30 History metoprolol succinate 100 mg 100 mg PO DAILY 06/16/20 10/19/20 10/10/20 06:30 History tablet,extended release 24 hr omeprazole 20 mg capsule,delayed 20 mg PO DAILY@0630 06/16/20 10/19/20 09/11/20 History release rosuvastatin 20 mg tablet 20 mg PO BEDTIME 06/16/20 10/19/20 09/10/20 History albuterol sulfate 2.5 mg INHALATION Q4H PRN 09/11/20 10/19/20 Unknown History Spiriva with HandiHaler 1 cap INHALATION DAILY 10/03/20 10/19/20 10/10/20 06:30 History Physical Exam Vital Signs: Last Vital Signs Temp 98 F 10/19/20 16:44 Pulse 109 H 10/20/20 06:00 Resp 36 H 10/20/20 06:00 BP 127/78 10/20/20 06:00 Pulse Ox 94 10/20/20 06:00 Oxygen Flow Rate 2 10/19/20 16:44 Body Mass Index 18.1 Const General: alert and ill appearing Nutritional Appearance: cachectic Orientation/consciousness: patient oriented x3 HENMT Head: Yes No palpable skull fracture present and Yes normocephalic Neck Neck: Yes normal visual inspection and Yes full ROM Chest Chest palpation & inspection: normal inspection of the chest Resp Effort & Inspection: normal respiratory effort Auscultation: clear to auscultation bilaterally and diminished lung sounds Cardio Jugular venous distension: no JVD Rate: tachycardic Rhythm: abnormal rhythm irregularly irregular Heart sounds: S1 normal heart sound present and S2 normal heart sound present Peripheral pulses: Peripheral pulses 2+ throughout GI Inspection: Yes normal to inspection Palpation (GI): Soft to palpation and nontender Auscultation: normal bowel sounds Neuro General: patient oriented x3 and no focal motor deficits Extrem General: Yes normal to inspection, Yes full ROM and No no pedal edema Results Lab Results Result Diagrams: 10/20/20 07:01 10/19/20 23:08 Lab results: Chemistry 10/19/20 10/19/20 18:02 23:08 Sodium 151 H 150 H Potassium 3.4 3.4 Carbon Dioxide 22 26 BUN 22 H D 23 H Creatinine 0.81 0.98 Calcium 9.5 D 10.0 Hematology 10/19/20 10/20/20 17:22 07:01 WBC 7.8 Hgb 13.4 L D 12.4 L Plt Count 319 319 Assessment and Plan (1) Dysphagia: Status: Acute 79-year-old male with a past medical history of hypertension, hyperlipidemia, CAD, COPD, hypothyroidism, history of hematuria, GI bleed; history of rib fracture; recent diagnosis of esophageal mass; history of AFib presented to the hospital with a chief complaint of poor oral intake/dysphagia. we are asked to see for hypernatremia poor PO intake swith to d5 1/4 NS Procedures Date of Service Date of Service: 10/20/20
[2020-10-20 08:13] LABS: Anion Gap 19 (12-20); Blood Urea Nitrogen 23 mg/dL (9-16); Calcium 9.7 mg/dL (8.4-10.2); Carbon Dioxide 25 mmol/L (22-29); Chloride 111 mmol/L (96-108); Creatinine Clr Calc Pharmacy 42.7; Estimated Glomerular Filt Rate > 60; Glucose Random 134 mg/dL (60-115); Potassium 3.5 mmol/L (3.3-5.1); Sodium 151 mmol/L (135-145)
[2020-10-20 08:21] LABS: Band Neutrophils Percent 23 % (3-5); Lymphocytes Percent Manual 1 % (20-40); Monocytes Percent Manual 4 % (2-11); Neutrophils Percent Manual 72 % (45-73); RBC Morphology NOTED
--- NOTE | 2020-10-20 08:21 | PC.NURSE ---
Pt using accessory muscles with breathing, Respiratory Therapy was called by this play writer to given prn updraft to pt. awaiting tx.
[2020-10-20 08:22] LABS: Acanthocytes 2+ (3-5) /OIF; Ovalocytes 1+ (5-14) /OIF; Platelet Estimate NORMAL (NORMAL); Platelet Morphology Comment NORMAL; Schistocytes 1+ (0-2) /OIF
[2020-10-20 08:23] LABS: Toxic Vacuolation PRESENT
[2020-10-20 08:24] LABS: Lymphocytes Absolute Manual 0.1 X10*3/uL (0.6-4.8); Monocytes Absolute Manual 0.6 X10*3/uL (0.0-1.2); Neutrophils Absolute Manual 14.1 X10*3/uL (2.2-7.9); White Blood Count 14.8 X10*3/uL (4.8-10.8)
--- NOTE | 2020-10-20 08:28 | PC.NURSE ---
Respiratory therapy at bedside.
[2020-10-20] MEDS: Albuterol/Iprat 2.5/0.5MG 3 ML AMPUL.NEB INHALE (08:31)
[2020-10-20 08:35] VITALS: PULSE 103; O2SAT 93
--- NOTE | 2020-10-20 08:45 | PC.NURSE ---
Daughter in law (Ramirez), healthcare Proxy called for update on room status for pt. This designer/writer reported pt awaiting room placement.
--- NOTE | 2020-10-20 10:01 | PC.NURSE ---
Pt working hard to breath, non rebreather applied, pt satting low 90s. prn updraft tx given with some efffect. Dr. La contacted by this aligner typewriter.
--- NOTE | 2020-10-20 10:02 | PM.GICN ---
History of Present Illness Data of Consult Service Date: 10/20/20 Requesting physician: Matthew Mack Primary Care Provider: Sima Oconnor MD [facility] Reason for consult: Dysphagia 79 YM known to me from past GI evaluation admitted to [facility] yesterday with worsening dysphagia Chief Complaint: Dysphagia 79-year-old male with a past medical history Of hypertension, hyperlipidemia, CAD, COPD, hypothyroidism, AFib-recently discontinued Coumadin, GERD, history of prostate cancer, recent diagnosis of esophageal mass, history of GI bleed presented to the hospital with a chief complaint of dysphagia. Most of the history obtained from the patient, patient's family at bedside; patient is hard of hearing. Reportedly since he was discharged from the hospital he has gradual decline in his oral intake; initially was able to manage with liquids but lately he is not able to keep anything down; has also not been taking his home oral pills for the past couple days. Complains of cough and LA sputum production. Complains of pointed chest pain since his discharge from the hospital; reports fatigue. Denies any urinary symptoms. Denies any diarrhea. Review of all other systems is negative next mentioned above ER course: Per ER team patient noted to have mild hypernatremia of 151, chest x-ray consistent with possible aspiration pneumonia; ER team also mentioned that GI-Dr. Farfan on plan to place esophageal stent Given antibiotics. Admitted for further management. Review of Systems Constitutional: Constitutional: Reports difficulty sleeping, Denies fever(s), Reports headache(s) and Reports weight loss Eyes: Eyes: Denies eye discharge, Reports dry eyes and Denies irritation ENT: Reports Normal hearing present, Reports dysphagia, Denies dizziness, Reports dry mouth and Reports headache(s) Cardiovascular: Cardiovascular: Reports chest pain, Denies leg edema, Reports dyspnea ( at rest), Reports dyspnea on exertion and Reports other ( palpitations) Respiratory: Respiratory: Denies cough, Reports dyspnea ( at rest) and Reports dyspnea on exertion Gastrointestinal: Gastrointestinal: Reports abdominal pain, Denies change in bowel habits, Reports dysphagia and Denies heartburn Genitourinary: Genitourinary: Denies dysuria Musculoskeletal: Musculoskeletal: Denies back pain and Reports arthralgias ( arthritis) Integumentary/Breasts: Skin/Breast: Denies pruritus, Reports rash, Denies jaundice and Reports other (Alopecia, photosensitivity) Neurologic: Reports Normal hearing present, Denies Abnormal speech present, Denies dizziness, Reports headache(s) and Denies seizure-like activity Psychiatric: Psychiatric: Reports anxiety, Reports depression and Denies panic attacks Endocrine: Endocrine: Denies cold intolerance, Denies flushing and Denies heat intolerance PMFSH Past Medical History Medical History Acute respiratory failure with hypoxia Allergic rhinitis Aspiration pneumonia Atrial fibrillation CAD (coronary artery disease) CKD (chronic kidney disease) COPD (chronic obstructive pulmonary disease) Dysphagia Esophageal cancer GERD (gastroesophageal reflux disease) History of GI bleed HLD (hyperlipidemia) [place] (hard of hearing) Hypertension Hypothyroidism Legally blind Prostate cancer Smoker Surgical History Surgical History H/O prostatectomy History of tonsillectomy and adenoidectomy Hx of angioplasty Hx of angioplasty Hx of umbilical hernia repair Social History Social History Household Members: Family Household Members Other:: son and daughter in law Housing: House Do you presently have visiting nurse or other home services: No Alcohol intake: unknown Patient Tobacco Use Status: Current everyday Tobacco user Tobacco use type: Cigarette Cigarette Packs Per Day: 0.5 Cigarettes Per Day: 3 Second Hand Smoke Exposure: No Advance Directives: Yes Advance Directives on File: Yes Advance Directives Date on File: 09/12/20 service: Yes Current occupational status: disabled Meds Allergies Allergy/AdvReac Type Severity Reaction Status Date / Time lisinopril [LISINOPRIL] Allergy Severe ANGIOEDEMA Verified 10/10/20 13:44 quinine [Quinine] Allergy Unknown HIVES Verified 10/10/20 13:44 Active Medications: Current Medications Generic Name Dose Route Start Last Admin Trade Name Freq PRN Reason Stop Dose Admin Acetaminophen 650 mg 10/19/20 20:09 Acetaminophen Supp 650 Mg Supp.Rect TX Q6H PRN Pain, Mild (Pain Scale 1-3) Albuterol/Ipratropium 3 ml 10/19/20 20:09 10/20/20 08:31 Albuterol/Iprat 2.5/0.5mg 3 Ml Ampul.Neb INHALE 3 ml RQ4H PRN Administration Shortness of Breath/Wheezing Hydromorphone HCl 0.5 mg 10/19/20 20:09 Hydromorphone Hcl 0.5 Mg/0.5 Ml Syringe SUBCUT Q4H PRN Pain, Severe (Pain Scale 7-10) Piperacillin Sod/Tazobactam 50 mls @ 100 mls/hr 10/20/20 01:00 10/20/20 08:10 Sod 3.375 gm/ Sodium Chloride IV Infused Q6H [facility] Infusion Vancomycin HCl 1,000 mg/ 270 mls @ 270 mls/hr 10/20/20 23:00 Sodium Chloride IV Q24H [facility] Dextrose/Sodium Chloride 1,000 mls @ 75 mls/hr 10/20/20 09:45 D51/4ns IVCONT .[id number] [facility] Levothyroxine Sodium 50 mcg 10/20/20 06:00 10/20/20 07:54 Levothyroxine Sodium 100 Mcg/5 Ml Vial IVPUSH 50 mcg DAILY@0600 [facility] Administration Metoprolol Tartrate 5 mg 10/19/20 20:09 10/19/20 21:30 Metoprolol Tartrate 5 Mg/5 Ml Vial IVPUSH 5 mg Q4H PRN Administration SBP>160; HR>125 Pharmacy Consult 1 each 10/19/20 20:13 Consult Rx Vancomycin Dosing MISCELLANE DAILY PRN Consult order Sodium Chloride 3 ml 10/20/20 00:00 10/20/20 08:51 0.9 % Sodium Chloride Flush 3 Ml Syringe IVFLUSH Not Given QSHIFT [facility] Home Medications Medication Instructions Recorded Confirmed Last Taken Type albuterol sulfate 90 mcg/actuation 1 inh INHALATION Q4H PRN 06/16/20 10/19/20 Unknown History aerosol inhaler cholecalciferol (vitamin D3) 25 25 mcg PO DAILY 06/16/20 10/19/20 09/11/20 History mcg (1,000 unit) tablet docusate sodium 100 mg capsule 100 mg PO BEDTIME PRN 06/16/20 10/19/20 Unknown History dronedarone 400 mg tablet 400 mg PO BID 06/16/20 10/19/20 10/10/20 06:30 History ferrous sulfate 325 mg (65 mg 325 mg PO DAILY 06/16/20 10/19/20 Unknown History iron) tablet fluticasone propionate 50 1 spray INTRANASAL DAILY 06/16/20 10/19/20 Unknown History mcg/actuation nasal spray,suspension folic acid 1 mg tablet 1 mg PO DAILY 06/16/20 10/19/20 09/11/20 History levothyroxine 100 mcg tablet 100 mcg PO DAILY@0630 06/16/20 10/19/20 10/10/20 06:30 History metoprolol succinate 100 mg 100 mg PO DAILY 06/16/20 10/19/20 10/10/20 06:30 History tablet,extended release 24 hr omeprazole 20 mg capsule,delayed 20 mg PO DAILY@0630 06/16/20 10/19/20 09/11/20 History release rosuvastatin 20 mg tablet 20 mg PO BEDTIME 06/16/20 10/19/20 09/10/20 History albuterol sulfate 2.5 mg INHALATION Q4H PRN 09/11/20 10/19/20 Unknown History tiotropium bromide 18 mcg capsule 1 cap INHALATION DAILY 10/03/20 10/19/20 10/10/20 06:30 History with inhalation device (Spiriva with HandiHaler) Physical Exam Vital Signs: Vital Signs: Last Vital Signs Temp 98 F 10/19/20 16:44 Pulse 103 H 10/20/20 08:35 Resp 33 H 10/20/20 08:00 BP 132/82 10/20/20 08:00 Pulse Ox 93 10/20/20 08:00 Oxygen Flow Rate 2 10/19/20 16:44 Body Mass Index 18.1 Const: General: no acute distress and ill appearing Nutritional Appearance: underweight Orientation/consciousness: patient oriented x3 Limitations: ambulation with walker and other limitations (hard of hearing) HENMT: Head: Yes normal to inspection Ears: hearing grossly normal bilaterally Mouth: Normal oral and palatal mucosa present Eyes: Sclerae: sclerae normal Pupils: Equal, round and reactive pupils present Neck: Neck: Yes normal visual inspection Chest: Chest palpation & inspection: normal inspection of the chest Resp: Effort & Inspection: normal respiratory effort Auscultation: clear to auscultation bilaterally Cardio: Palpation: normal PMI Rate: regular rate Rhythm: regular rhythm Heart sounds: S1 normal heart sound present, S2 normal heart sound present and no murmurs GI: Palpation (GI): Soft to palpation, nontender and No hepatosplenomegaly present Auscultation: normal bowel sounds Rectal Exam - Male: Yes deferred Skin: General skin exam: no rashes or lesions noted Neuro: General: patient oriented x3, gait normal and moves all extremities Cranial nerves: Yes Equal, round and reactive pupils present and Yes Normal hearing present Speech: No Abnormal speech present Psych: Appearance: grossly normal Mental Status: mental status grossly normal Results Labs CBC & Chem 7: 10/20/20 07:01 10/20/20 07:01 Labs: Short CBC 10/19/20 10/20/20 Range/Units 17:22 07:01 WBC 7.8 14.8 H (4.8-10.8) X10*3/uL Hgb 13.4 L D 12.4 L (14.0-18.0) g/dl Hct 43.9 D 41.5 L (42-52) % Plt Count 319 319 (160-400) X10*3/uL BMP 10/19/20 10/19/20 10/20/20 18:02 23:08 07:01 Sodium 151 H 150 H 151 H Potassium 3.4 3.4 3.5 Chloride 112 H 109 H 111 H Carbon Dioxide 22 26 25 BUN 22 H D 23 H 23 H Creatinine 0.81 0.98 1.01 Calcium 9.5 D 10.0 9.7 Assessment and Plan (1) Weakness: Status: Acute (2) Anemia: Status: Acute (3) Squamous cell esophageal cancer: Status: Acute 79 YM with worsening dysphagia complicated by aspiration pneumonia related to know hx of esophageal squamous cell cancer. Initial plan was to schedule an EGD with metal stent placement for dysphagia Due to worsening functional status, patient was placed on CUSTOMER SERVICE CLERK status after discussion by the hospitalist with his HCP. Procedures Date of Service Date of Service: 10/20/20
[2020-10-20] MEDS: Dextrose 5 % and 0.2 % NaCl 1,000 ML 75 ML IVCONT (10:20)
[2020-10-20] MEDS: Albuterol Sulfate (0.083%) 2.5 MG/3 ML VIAL.NEB 5 MG INHALE (10:29)
--- NOTE | 2020-10-20 10:30 | PC.NURSE ---
Dr. La at bedside, pt continues to use accessory muscles to breath, currently on 4L NC,satting at 98-99%, prn updraft administered with some effect. meds given as documented. Respiratory Therapist at bedside. Pt afib on monitor.
[2020-10-20 10:32] VITALS: PULSE 116; O2SAT 100
[2020-10-20] MEDS: Magnesium Sulfate/H2O 2 GM/50 ML PIGGYBACK IV (10:33)
[2020-10-20] MEDS: methylPREDNISolone Sod Succ 125 MG/2 ML VIAL IVPUSH (10:33)
--- NOTE | 2020-10-20 11:00 | PC.NURSE ---
Pt alert and confused, attempting to remove oxygen. continues to use accessory muscles to breath, pt satting at 95-97 % 4L NC, HR low 120s, respirations 24 - 30. color pale. Dr La was contacted by this financial underwriter with assessment findings and suggestion to contact family. New order for bipap. Awaiting family arrival.
--- NOTE | 2020-10-20 11:30 | PC.NURSE ---
Respiratory therapy at bedside, bipap applied, IPAP 14, EPAP 6, O2 35%. This program writer remains at bedside awaiting family arrival.
--- NOTE | 2020-10-20 11:48 | PC.NURSE ---
Respiratory therapy at bedside, pt being taken off bipap, hi-flow being applied. Son (Christ and daughter in law [facility]) at bedside. Dr. La at beside.
--- NOTE | 2020-10-20 12:25 | MHC.CM.PN ---
Attempted to meet with patient and family in regards to discharge planning. 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 Family is visibly upset. Will not meet at this time. Will attempt to meet again. Continue to monitor for d/c needs.
[2020-10-20] MEDS: LORazepam 2 MG/ML VIAL 0.5 MG IVPUSH (12:27)
--- NOTE | 2020-10-20 12:27 | W.MHC.ACPN ---
Advanced Care Planning Note Advanced Care Planning Note Discussed with: family member(s) Time spent (in minutes): 20 Narrative: I was called by ARLETH Gamble for concern of hypoxia to 80s, increased WOB with RR in the 50s. Hypoxia resolved with O2 via HFNC but pt did not tolerate it and pulled it off. He pulled off NRB + Lui device as well. I had an in-person discussion with the patient's HCP and HCP alternate, his daughter-in law Mimi and son Christ, respectively in light of pt's recently diagnosed metastatic esophageal cancer. They say the pt has been clear that he does not want any invasive measures and at this point, they wish us to respect his wishes not to have oxygen on, realizing that the pt is likely to pass away imminently. They would like us to respect the pt's wishes to focus on comfort and as such, the patient will be admitted to a private room and placed on TELEMETRY REGISTERED NURSE. Problems Discussed (1) Dysphagia: (2) Acute respiratory failure with hypoxia:
[2020-10-20] MEDS: Morphine Sulfate 2 MG/ML CARTRIDGE 3 MG IVPUSH (12:28)
--- NOTE | 2020-10-20 12:33 | HO.PM.IMPN ---
Subjective Subjective Date of Service: 10/20/20 Interval History: Hypoxic on NRB 15L. Placed on Lui device and hypoxia resolved, but pt was still breathing in the 50s. Desaturated again. Did not tolerate BiPAP or HFNC. Discussed with pt's HCP/family [[id number] Mimi and son Christ] and they are transitioning him to PASSENGER INTERLINE CLERK status given his discomfort, past discussion of his wishes in this type of situation, and underlying metastatic esophageal CA. Review of Systems Review of Systems: Yes Unobtainable due to mental status Physical Exam Vital Signs: Vital Signs: Last Vital Signs Temp 98 F 10/19/20 16:44 Pulse 116 H 10/20/20 10:32 Resp 33 H 10/20/20 08:00 BP 132/82 10/20/20 08:00 Pulse Ox 93 10/20/20 08:00 Oxygen Flow Rate 2 10/19/20 16:44 Body Mass Index 18.1 Gen: in respiratory distress, ill-appearing HEENT: sclera anicteric, dry mucus membranes Neck: supple Lungs: poor air entry throughout with scattered high-pitched expiratory wheezes Heart: irregular, rapid Abd: soft, non-tender, non-distended Ext: no edema Skin: cyanotic Neuro: disoriented Psych: impaired insight Objective Data Current Medications Generic Name Dose Route Start Last Admin Trade Name Freq PRN Reason Stop Dose Admin Lorazepam 0.5 mg 10/20/20 12:09 10/20/20 12:27 Lorazepam 2 Mg/Ml Vial IVPUSH 0.5 mg Q4H PRN Administration restlessness/anxiety Morphine Sulfate 3 mg 10/20/20 12:09 10/20/20 12:28 Morphine Sulfate 2 Mg/Ml Cartridge IVPUSH 3 mg Q2H PRN Administration Discomfort/Shortness of breath Naloxone HCl 0.2 mg 10/20/20 12:09 Naloxone Hcl 0.4 Mg/Ml Vial IVPUSH Q2M PRN Excessive sedation or RR < 8 Sodium Chloride 3 ml 10/20/20 00:00 10/20/20 08:51 0.9 % Sodium Chloride Flush 3 Ml Syringe IVFLUSH Not Given QSHIFT [facility] Labs CBC & Chem 7: 10/20/20 07:01 10/20/20 07:01 Labs: Laboratory Results - last 24 hr 07/03/0110/19/20 10/19/20 17:22 17:22 17:22 WBC 7.8 RBC 4.69 D Hgb 13.4 L D Hct 43.9 D MCV 93.6 MCH 28.6 MCHC 30.5 L RDW 15.9 Plt Count 319 MPV 10.0 Immature Gran % (Auto) 0.4 Neut % (Auto) 85.1 H Lymph % (Auto) 4.6 L [place] % (Auto) 9.9 Eos % (Auto) 0.0 Baso % (Auto) 0.0 Lymph # (Auto) 0.4 L [place] # (Auto) 0.8 Eos # (Auto) 0.0 Baso # (Auto) 0.0 Abs Immat Gran (auto) 0.03 Absolute Neuts (auto) 6.7 Absolute Nucleated RBC 0.000 Nucleated RBC % (auto) 0.0 Neutrophils % (Manual) Band Neutrophils % Lymphocytes % (Manual) Monocytes % (Manual) Abs Neuts (Manual) Lymphocytes # (Manual) Monocytes # (Manual) Toxic Vacuolation Platelet Estimate Plt Morphology Comment RBC Morphology Ovalocytes Acanthocytes (Spur) Schistocytes PT 12.0 INR 1.1 APTT 30.6 Sodium Potassium Chloride Carbon Dioxide Anion Gap BUN Creatinine Estim Creat Clear Calc Estimated GFR Random Glucose Lactic Acid 1.8 Calcium COVID-19 ([facility]) COVID-19 Clin Com 10/19/20 10/19/20 10/19/20 18:02 19:23 23:08 WBC RBC Hgb Hct MCV MCH MCHC RDW Plt Count MPV Immature Gran % (Auto) Neut % (Auto) Lymph % (Auto) Oxford % (Auto) Eos % (Auto) Baso % (Auto) Lymph # (Auto) Oxford # (Auto) Eos # (Auto) Baso # (Auto) Abs Immat Gran (auto) Absolute Neuts (auto) Absolute Nucleated RBC Nucleated RBC % (auto) Neutrophils % (Manual) Band Neutrophils % Lymphocytes % (Manual) Monocytes % (Manual) Abs Neuts (Manual) Lymphocytes # (Manual) Monocytes # (Manual) Toxic Vacuolation Platelet Estimate Plt Morphology Comment RBC Morphology Ovalocytes Acanthocytes (Spur) Schistocytes PT INR APTT Sodium 151 H 150 H Potassium 3.4 3.4 Chloride 112 H 109 H Carbon Dioxide 22 26 Anion Gap 20 18 BUN 22 H D 23 H Creatinine 0.81 0.98 Estim Creat Clear Calc 53.3 44.0 Estimated GFR > 60 > 60 Random Glucose 75 97 Lactic Acid Calcium 9.5 D 10.0 COVID-19 ([facility]) Negative COVID-19 Clin Com See Note 10/20/20 10/20/20 07:01 07:01 WBC 14.8 H RBC 4.33 L Hgb 12.4 L Hct 41.5 L MCV 95.8 MCH 28.6 MCHC 29.9 L RDW 16.1 H Plt Count 319 MPV 10.4 Immature Gran % (Auto) Cancelled Neut % (Auto) Cancelled Lymph % (Auto) Cancelled Oxford % (Auto) Cancelled Eos % (Auto) Cancelled Baso % (Auto) Cancelled Lymph # (Auto) Cancelled Oxford # (Auto) Cancelled Eos # (Auto) Cancelled Baso # (Auto) Cancelled Abs Immat Gran (auto) Cancelled Absolute Neuts (auto) Cancelled Absolute Nucleated RBC 0.000 Nucleated RBC % (auto) 0.0 Neutrophils % (Manual) 72 Band Neutrophils % 23 H Lymphocytes % (Manual) 1 L Monocytes % (Manual) 4 Abs Neuts (Manual) 14.1 H Lymphocytes # (Manual) 0.1 L Monocytes # (Manual) 0.6 Toxic Vacuolation PRESENT Platelet Estimate NORMAL Plt Morphology Comment NORMAL RBC Morphology NOTED Ovalocytes 1+ (5-14) Acanthocytes (Spur) 2+ (3-5) Schistocytes 1+ (0-2) PT INR APTT Sodium 151 H Potassium 3.5 Chloride 111 H Carbon Dioxide 25 Anion Gap 19 BUN 23 H Creatinine 1.01 Estim Creat Clear Calc 42.7 Estimated GFR > 60 Random Glucose 134 H D Lactic Acid Calcium 9.7 COVID-19 ([facility]) COVID-19 Clin Com Quality Stroke Does the patient have a stroke diagnosis?: No VTE Prior VTE?: No VTE Risk Level:: Medical - moderate - high VTE Device Contraindication: Treatment Not Indicated VTE Drug Contraindication: N/A - Med Ordered Assessment and Plan (1) Acute respiratory failure with hypoxia: Status: Acute (2) Aspiration pneumonia: Status: Acute (3) Esophageal cancer: Status: Acute Assessment and Plan: hospital d#2 79yo M with COPD, HTN, CAD, AF, hypothyroidism, and recently diagnosed 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
--- NOTE | 2020-10-20 13:01 | PC.NURSE ---
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 meds given for comfort as documented. Family at bedside Report given to receiving nurse ARLETH Reid.
--- NOTE | 2020-10-20 14:57 | P.EN_ITS ---
Event Note Date of Service: 10/20/20 Event Note: I was called by ARLETH Hunter to pronounce the patient who was placed this morning on MATTRESS SPRING ENCASER status after discussion with his HCP. I arrived to find the patient unresponsive and apneic. Corneal reflexes absent, no cardiac activity, no respirations, no pulses. Family members present and I offered my sincere condolences. Cause of is acute hypoxic respiratory failure due to aspiration PNA due to metastatic esophageal CA with possible contribution of COPD.
--- NOTE | 2020-10-20 15:00 | P.DS_ITS ---
DS: Providers Provider Date of Service: 10/20/20 Date of admission: 10/19/20 20:09 Primary care physician: Sima Oconnor MD DS: Diagnosis Discharge Diagnosis (1) Acute respiratory failure with hypoxia: Status: Acute (2) Aspiration pneumonia: Status: Acute (3) Esophageal cancer: Status: Acute DS: Medications Discharge Medications Home Medications: N/A DS: Summary Hospital Course Hospital Course: from H+P by admitting hospitalist Matthew Mack, 10/19/20: 79-year-old male with a past medical history Of hypertension, hyperlipidemia, CAD, COPD, hypothyroidism, AFib-recently discontinued Coumadin, GERD, history of prostate cancer, recent diagnosis of esophageal mass, history of GI bleed presented to the hospital with a chief complaint of dysphagia. Most of the history obtained from the patient, patient's family at bedside; patient is hard of hearing. Reportedly since he was discharged from the hospital he has gradual decline in his oral intake; initially was able to manage with liquids but lately he is not able to keep anything down; has also not been taking his home oral pills for the past couple days. Complains of cough and LA sputum production. Complains of pointed chest pain since his discharge from the hospital; reports fatigue. Denies any urinary symptoms. Denies any diarrhea. Review of all other systems is negative next mentioned above ER course: Per ER team patient noted to have mild hypernatremia of 151, chest x-ray consistent with possible aspiration pneumonia; ER team also mentioned that GI-Dr. Farfan on plan to place esophageal stent Given antibiotics. Admitted for further management. While in the ED, the patient became increasingly hypoxic. He was placed on HFNC but did not tolerate it. He was listed as DNR/DNI, which I confirmed with his family. I discussed his poor prognosis with his family at the bedside and they stated that he has clearly expressed his desire for comfort and palliation rather than invasive lifesaving interventions in this type of situation. 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 His family was present for his final living moments. Time of was 14:50; cause of acute hypoxic respiratory failure due to aspiration pneumonia due to metastatic esophageal cancer with contributing factor of COPD. Time Spent with Patient Time attestation: Total time spent providing and/or coordinating discharge services: N/A Discharge coordination time: Greater than 30 minutes Quality: Stroke Does the patient have a stroke diagnosis?: No Physical Exam Vital Signs: Vital Signs: DS: Data Data Completed and Pending Completed studies during hospitalization [Text1]: Laboratory Results WBC 14.8 X10*3/uL (4.8-10.8) H 10/20/20 07:01 RBC 4.33 X10*6/uL (4.60-5.80) L 10/20/20 07:01 Hgb 12.4 g/dl (14.0-18.0) L 10/20/20 07:01 Hct 41.5 % (42-52) L 10/20/20 07:01 MCV 95.8 fL (80-98) 10/20/20 07:01 MCH 28.6 pg (27.0-33.0) 10/20/20 07:01 MCHC 29.9 g/dl (31.0-36.0) L 10/20/20 07:01 RDW 16.1 % (11.0-16.0) H 10/20/20 07:01 Plt Count 319 X10*3/uL (160-400) 10/20/20 07:01 MPV 10.4 fL (9.4-12.4) 10/20/20 07:01 Immature Gran % (Auto) Cancelled 10/20/20 07:01 Neut % (Auto) Cancelled 10/20/20 07:01 Lymph % (Auto) Cancelled 10/20/20 07:01 [place] % (Auto) Cancelled 10/20/20 07:01 Eos % (Auto) Cancelled 10/20/20 07:01 Baso % (Auto) Cancelled 10/20/20 07:01 Lymph # (Auto) Cancelled 10/20/20 07:01 [place] # (Auto) Cancelled 10/20/20 07:01 Eos # (Auto) Cancelled 10/20/20 07:01 Baso # (Auto) Cancelled 10/20/20 07:01 Abs Immat Gran (auto) Cancelled 10/20/20 07:01 Absolute Neuts (auto) Cancelled 10/20/20 07:01 Absolute Nucleated RBC 0.000 X10*3/uL (0.0-0.012) 10/20/20 07:01 Nucleated RBC % (auto) 0.0 /100WBC (0.0-0.2) 10/20/20 07:01 Neutrophils % (Manual) 72 % (45-73) 10/20/20 07:01 Band Neutrophils % 23 % (3-5) H 10/20/20 07:01 Lymphocytes % (Manual) 1 % (20-40) L 10/20/20 07:01 Monocytes % (Manual) 4 % (2-11) 10/20/20 07:01 Abs Neuts (Manual) 14.1 X10*3/uL (2.2-7.9) H 10/20/20 07:01 Lymphocytes # (Manual) 0.1 X10*3/uL (0.6-4.8) L 10/20/20 07:01 Monocytes # (Manual) 0.6 X10*3/uL (0.0-1.2) 10/20/20 07:01 Toxic Vacuolation PRESENT 10/20/20 07:01 Platelet Estimate NORMAL (NORMAL) 10/20/20 07:01 Plt Morphology Comment NORMAL 10/20/20 07:01 RBC Morphology NOTED 10/20/20 07:01 Ovalocytes 1+ (5-14) /OIF 10/20/20 07:01 Acanthocytes (Spur) 2+ (3-5) /OIF 10/20/20 07:01 Schistocytes 1+ (0-2) /OIF 10/20/20 07:01 PT 12.0 SEC (9.9-13.0) 10/19/20 17:22 INR 1.1 (0.9-1.1) 10/19/20 17:22 APTT 30.6 SEC (24.1-38.0) 10/19/20 17:22 Sodium 151 mmol/L (135-145) H 10/20/20 07:01 Potassium 3.5 mmol/L (3.3-5.1) 10/20/20 07:01 Chloride 111 mmol/L (96-108) H 10/20/20 07:01 Carbon Dioxide 25 mmol/L (22-29) 10/20/20 07:01 Anion Gap 19 (12-20) 10/20/20 07:01 BUN 23 mg/dL (9-16) H 10/20/20 07:01 Creatinine 1.01 mg/dL (0.5-1.4) 10/20/20 07:01 Estim Creat Clear Calc 42.7 10/20/20 07:01 Estimated GFR > 60 10/20/20 07:01 Random Glucose 134 mg/dL (60-115) H D 10/20/20 07:01 Lactic Acid 1.8 mmol/L (0.5-2.0) 10/19/20 17:22 Calcium 9.7 mg/dL (8.4-10.2) 10/20/20 07:01 COVID-19 ([facility]ENDO) Negative (Negative) 10/19/20 19:23 COVID-19 Clin Com See Note 10/19/20 19:23 Impressions Chest X-Ray 10/19/20 17:38 IMPRESSION: Abnormal chest radiograph showing features most consistent with COPD/emphysema and superimposed nonspecific bibasilar airspace disease. Bibasilar airspace disease appear new since 09/11/2020. Discharge Plan Discharge Patient Disposition: Referrals: Sima Oconnor MD [Primary Care Provider] - 1 Week Discharge Medications: No Action fluticasone furoate-vilanterol [Breo Ellipta] 200-25 mcg/dose blister with device 1 ea PO DAILY Qty: 60 RF: 3 Magic Mouthwash Diphen/Lido/Antacid 1:1:1 240 mL suspension 10 ml PO TIDAC PRN (Reason: odynophagia) Qty: 240 RF: 0 albuterol sulfate 2.5 mg /3 mL (0.083 %) Solution For Nebulization 2.5 mg INHALATION Q4H PRN (Reason: Respiratory Distress) RF: 0 Spiriva with HandiHaler 18 mcg capsule, w/inhalation device 1 cap inhalation DAILY RF: 0 dronedarone 400 mg tablet 400 mg PO BID RF: 0 rosuvastatin 20 mg tablet 20 mg PO BEDTIME RF: 0 fluticasone propionate 50 mcg/actuation spray,suspension 1 spray intranasal DAILY RF: 0 albuterol sulfate 90 mcg/actuation HFA aerosol inhaler 1 inh inhalation Q4H PRN (Reason: Shortness Of Breath) RF: 0 omeprazole 20 mg capsule,delayed release(DR/EC) 20 mg PO DAILY@0630 RF: 0 levothyroxine 100 mcg tablet 100 mcg PO DAILY@0630 RF: 0 metoprolol succinate 100 mg tablet extended release 24 hr 100 mg PO DAILY RF: 0 folic acid 1 mg tablet 1 mg PO DAILY RF: 0 cholecalciferol (vitamin D3) 25 mcg (1,000 unit) tablet 25 mcg PO DAILY RF: 0 docusate sodium 100 mg capsule 100 mg PO BEDTIME PRN (Reason: Constipation) RF: 0 ferrous sulfate 325 mg (65 mg iron) tablet 325 mg PO DAILY RF: 0
--- NOTE | 2020-10-20 15:49 | PC.NURSE ---
Late entry. Pt arrived to unit via bed at 1300. Eyes open but unable to answer questions. Inc urine. cleaned and repostioned. TRANSPORT CONDUCTOR
--- NOTE | 2020-10-20 16:22 | MHC.CM.PN ---
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, after 1;30 pm sooin after patient was pronounced per dopcumentation not in chart advance care planning with familywhen patients o2 sats were in the 80s and respiratory rate in the 50s per documentation hypoxia was resolved with oxygen with high flow nasal canula but patient did not tolerate this and pulled it off, he pulled off non rebreather and husdon device as well , he has the diagnosis of metastatic esophageal cancer, hospitlaist had advance care planning meeting with family patients health care proxy and health care proxy alternate the daughter in law e;beau and son yosi the patient has been clear that he did not want any invasive measures to be carried out , and they wanted to respect his wishes and 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
--- NOTE | 2020-10-20 16:28 | PC.NURSE ---
late entry: 1450 pt family called out stating pt . Danish Hennessy into room- pt without pulse or respirations. Dr Villafana notified and into room to pronounce pt at 1450. Family at bedside at time of passing. No belongings left with pt. Family took home pt bathrobe. Donor bank notified of .
--- NOTE | 2020-10-30 13:31 | MHC.CDI.RETR ---
Retrospective Query Please clarify if you have treated a probable/suspected/likely or confirmed: Encephalopathy ? indicate type, such as metabolic, toxic, septic, anoxic No Encephalopathy Other, please specify Unable to Determine PLEASE DO NOT DELETE/MODIFY EXISTING CONTENT Additional information is needed in order to code to the highest accuracy and appropriate Severity of Illness (SOI). Please clarify the information noted below in your progress notes and discharge summary. Risk Factors/Clinical Indicators/Treatments Per ED note alert and ill appearing, oriented x3 Per MD progress note 10/20/20, became hypoxic, review of systems unobtainable due to mental status, disoriented CDS: Cherelle Whiteside RN Contact Number: [phone] Please Review the information above and exercise your independent professional judgment in responding to the query. If you concur, pleas document in the PROGRESS NOTES and DISCHARGE SUMMARY. If you do not agree with the query, please document in the query above. THIS QUERY IS PART OF THE PERMANENT MEDICAL RECORD
--- NOTE | 2020-10-30 13:42 | MHC.CDI.RETR ---
Retrospective Query Please clarify if you have treated a probable/suspected/likely or confirmed: ? Malnutrition (specify if mild, moderate, or severe) ? Protein calorie malnutrition (specify if mild, moderate, or severe) ? Cachexia without malnutrition ? No nutritional deficiency ? Other (please specify) ? Unable to determine PLEASE DO NOT DELETE/MODIFY EXISTING CONTENT Additional information is needed in order to code to the highest accuracy and appropriate Severity of Illness (SOI). Please clarify the information noted below in your progress notes and discharge summary. Risk Factors/Clinical Indicators/Treatments HT 5'6 WT 51kg BMI 18.1 No Nutrition consult in EMR Admit with esophageal cancer s/p balloon dilation on 10/10/20, increased cough, difficulty swallowing, weight loss, unable to eat/drink Cachexia per progress note CDS: Cherelle Whiteside RN Contact Number: [phone] Please Review the information above and exercise your independent professional judgment in responding to the query. If you concur, pleas document in the PROGRESS NOTES and DISCHARGE SUMMARY. If you do not agree with the query, please document in the query above. THIS QUERY IS PART OF THE PERMANENT MEDICAL RECORD
== END 2020-10-20 14:50 | disposition expired | DRG 177 ==
LOC: HO.ED 16:50 → HO.EDOVER 20:31 → HO.S3 10-20 12:21
PROVIDERS: Admitting Provider Hospitalist; Emergency Provider Internal Medicine; PCP Internal Medicine; Visit Provider Family Medicine
DX: J69.0 Pneumonitis due to inhalation of food and vomit (principal); J96.01 Acute respiratory failure with hypoxia; G93.41 Metabolic encephalopathy; C15.9 Malignant neoplasm of esophagus, unspecified; E87.0 Hyperosmolality and hypernatremia; Z68.1 Body mass index [BMI] 19.9 or less, adult; R64 Cachexia; E46 Unspecified protein-calorie malnutrition; F17.210 Nicotine dependence, cigarettes, uncomplicated; Z71.6 Tobacco abuse counseling; H54.8 Legal blindness, as defined in USA; I25.10 Atherosclerotic heart disease of native coronary artery without angina pectoris; E78.5 Hyperlipidemia, unspecified; Z98.61 Coronary angioplasty status; E03.9 Hypothyroidism, unspecified; I48.91 Unspecified atrial fibrillation; Z85.46 Personal history of malignant neoplasm of prostate; Z20.822 Contact with and (suspected) exposure to COVID-19; Z79.52 Long term (current) use of systemic steroids; Z79.890 Hormone replacement therapy; Z79.899 Other long term (current) drug therapy; Z66 Do not resuscitate; Z51.5 Encounter for palliative care
CPT/HCPCS: 36415; 71045; 80048; 83605; 85007; 85025; 85027; 85610; 85730; 87040; 87635; 93005; 94640; 99285; J1200; J2060; J2270; J2543; J2930; J3370; J3475